=== PATIENT | female | born 1935 | race Caucasian/White ===

== ENCOUNTER 2020-05-14 06:41 | Outpatient (REF) | payer MEDICARE, SELFPAY ==
[2020-05-14 11:30] LABS: MANUAL DIFF FLAG NO
[2020-05-14 11:39] LABS: Basophils Percent Auto 0.2 % (0-2); Eosinophils Absolute Auto 0.1 X10*3/uL (0.0-0.4); Eosinophils Percent Auto 1.4 % (0-4); Hematocrit 43.9 % (37-47); Imm Gran Abs Auto 0.01 X10*3/uL (0.00-0.03); Imm Gran Pct Auto 0.2 % (0.0-0.4); Lymphocytes Absolute Auto 1.6 X10*3/uL (1.2-4.9); Lymphocytes Percent Auto 25.9 % (20-40); Mean Corpuscular HGB Conc 31.9 g/dl (31.0-35.0); Mean Corpuscular Hemoglobin 29.1 pg (27.0-33.0); Mean Corpuscular Volume 91.3 fL (80-98); Mean Platelet Volume 11.3 fL (9.4-12.3); Monocytes Absolute Auto 0.5 X10*3/uL (0.1-1.2); Monocytes Percent Auto 7.7 % (2-11); Neutrophils Absolute Auto 4.1 X10*3/uL (2.0-8.3); Neutrophils Percent Auto 64.6 % (45-73); Platelet Count 225 X10*3/uL (160-400); Red Blood Count 4.81 X10*6/uL (4.20-5.50); Red Cell Distribution Width 13.8 % (11.0-16.0); White Blood Count 6.3 X10*3/uL (4.8-10.8)
[2020-05-14 11:55] LABS: Alanine Aminotransferase 15 U/L (0-31); Albumin Level 4.3 g/dL (3.5-5.0); Alkaline Phosphatase 66 U/L (39-117); Anion Gap 14 (12-20); Aspartate Amino Transferase 20 U/L (5-31); Bilirubin Total 0.7 mg/dL (0.0-1.0); Blood Urea Nitrogen 14 mg/dL (9-16); Calcium 8.9 mg/dL (8.4-10.2); Carbon Dioxide 27 mmol/L (22-29); Chloride 103 mmol/L (96-108); Cholesterol 166 mg/dL; Estimated Glomerular Filt Rate > 60; Glucose Fasting 109 mg/dL (60-99); HDL Cholesterol 36 mg/dL; LDL Cholesterol Calculated 110 mg/dl; Potassium 4.2 mmol/l (3.3-5.1); Sodium 140 mmol/L (135-145); Total Protein 6.6 g/dL (6.5-8.0); Triglycerides 102 mg/dL
== END 2020-05-14 06:42 | disposition home or self-care (01) ==
LOC: HO.HMGCLDS 06:41
PROVIDERS: PCP Internal Medicine; Visit Provider Internal Medicine
DX: R53.83 Other fatigue (principal); E78.5 Hyperlipidemia, unspecified
CPT/HCPCS: 36415; 80053; 80061; 85025

== ENCOUNTER → 2021-04-04 14:13 | Outpatient (BNVA) | payer MEDICARE, SELFPAY | PROVIDERS: PCP Internal Medicine; Visit Provider Internal Medicine Cardiovascular Disease | DX: I48.0 Paroxysmal 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 (principal); Z87.891 Personal history of nicotine dependence; Z88.6 Allergy status to analgesic agent; Z79.899 Other long term (current) drug therapy | CPT/HCPCS: Q3014 ==

== ENCOUNTER 2021-04-28 11:53 | Outpatient (REF) | payer MEDICARE, SELFPAY ==
--- NOTE | ~2021-04-28 | MM_ITS ---
EXAMINATION: MM SCREENING DIGITAL BREAST TOMOSYNTHESIS, BILATERAL CLINICAL INFORMATION: Screening. Asymptomatic. Left lumpectomy for DCIS, 2005. Age 85. Due for yearly. COMPARISON: Mammography: 12/25/2018, 11/22/2017, 12/21/2014 TECHNIQUE: Digital breast tomosynthesis is performed in both the craniocaudal and mediolateral oblique views along with computer-aided detection (CAD). Synthesized 2D images are generated from the tomosynthesis. Additional exaggerated left CC and right MLO views are provided. FINDINGS: There are scattered areas of fibroglandular density (ACR BI-RADS breast composition Category b). Parenchymal pattern is similar to prior studies. Scattered bilateral inhomogeneous fibroglandular densities are stable. There is old scarring with reduced breast size on left consistent with post therapy changes. Circumscribed nodularity central right breast mid depth on MLO view is stable. There is no significant mass or architectural abnormality. Scattered bilateral benign round and coarse and vascular calcifications are again seen. There is a dermal lesion again noted right breast posterior lower inner quadrant. MM/MM tomosynthesis screening BI IMPRESSION: No significant changes from prior studies. ASSESSMENT: BI-RADS 2: Benign RECOMMENDATION: Routine annual mammography screening. This patient's information was entered into a reminder system with a target due date for their next mammogram.
== END 2021-04-28 11:54 | disposition home or self-care (01) ==
LOC: HO.MAMMO 11:53
PROVIDERS: Visit Provider Internal Medicine
DX: Z12.31 Encounter for screening mammogram for malignant neoplasm of breast (principal)
CPT/HCPCS: 77063; 77067

== ENCOUNTER 2021-05-13 07:06 | Outpatient (REF) | payer MEDICARE, SELFPAY ==
[2021-05-13 11:29] LABS: MANUAL DIFF FLAG NO
[2021-05-13 11:37] LABS: Basophils Percent Auto 0.4 % (0-2); Eosinophils Absolute Auto 0.1 X10*3/uL (0.0-0.4); Eosinophils Percent Auto 0.7 % (0-4); Hematocrit 44.5 % (37-47); Hemoglobin 14.5 g/dl (12.0-16.0); Imm Gran Abs Auto 0.02 X10*3/uL (0.00-0.03); Imm Gran Pct Auto 0.2 % (0.0-0.4); Lymphocytes Percent Auto 24.3 % (20-40); Mean Corpuscular HGB Conc 32.6 g/dl (31.0-35.0); Mean Corpuscular Hemoglobin 29.3 pg (27.0-33.0); Mean Corpuscular Volume 89.9 fL (80-98); Mean Platelet Volume 11.3 fL (9.4-12.3); Monocytes Absolute Auto 0.5 X10*3/uL (0.1-1.2); Monocytes Percent Auto 6.4 % (2-11); Neutrophils Absolute Auto 5.6 X10*3/uL (2.0-8.3); Platelet Count 250 X10*3/uL (160-400); Red Blood Count 4.95 X10*6/uL (4.20-5.50); Red Cell Distribution Width 13.4 % (11.0-16.0); White Blood Count 8.2 X10*3/uL (4.8-10.8)
[2021-05-13 12:04] LABS: Alanine Aminotransferase 18 U/L (0-31); Albumin Level 4.5 g/dL (3.5-5.0); Alkaline Phosphatase 72 U/L (39-117); Anion Gap 13 (12-20); Aspartate Amino Transferase 23 U/L (5-31); Bilirubin Total 0.8 mg/dL (0.0-1.0); Blood Urea Nitrogen 13 mg/dL (9-16); Calcium 9.7 mg/dL (8.4-10.2); Carbon Dioxide 27 mmol/L (22-29); Chloride 105 mmol/L (96-108); Cholesterol 161 mg/dL; Estimated Glomerular Filt Rate > 60; Glucose Fasting 114 mg/dL (60-99); HDL Cholesterol 32 mg/dL; LDL Cholesterol Calculated 109 mg/dl; Potassium 4.1 mmol/L (3.3-5.1); Sodium 141 mmol/L (135-145); Total Protein 6.9 g/dL (6.5-8.0); Triglycerides 102 mg/dL
== END 2021-05-13 07:07 | disposition home or self-care (01) ==
LOC: HO.HMGCLDS 07:06
PROVIDERS: PCP Internal Medicine; Visit Provider Internal Medicine
DX: R53.83 Other fatigue (principal); E78.00 Pure hypercholesterolemia, unspecified
CPT/HCPCS: 36415; 80053; 80061; 85025

== ENCOUNTER → 2022-04-12 10:54 | Outpatient (BNVA) | payer MEDICARE, SELFPAY | PROVIDERS: PCP Internal Medicine; Referring Provider Internal Medicine; Visit Provider Internal Medicine Cardiovascular Disease | DX: I48.0 Paroxysmal 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 (principal) | CPT/HCPCS: 93005; 99212 ==

== ENCOUNTER 2022-05-10 09:42 | Outpatient (REF) | payer MEDICARE, SELFPAY ==
--- NOTE | ~2022-05-10 | MM_ITS ---
EXAMINATION: MM SCREENING DIGITAL BREAST TOMOSYNTHESIS, BILATERAL CLINICAL INFORMATION: Screening. Asymptomatic. Previous left breast lumpectomy. COMPARISON: Mammography: 04/28/2021 and studies dating back to 11/29/2009. TECHNIQUE: Digital breast tomosynthesis is performed in both the craniocaudal and mediolateral oblique views along with computer-aided detection (CAD). Synthesized 2-D images are generated from the tomosynthesis. FINDINGS: There are scattered areas of fibroglandular density (ACR BI-RADS breast composition Category b). There is a stable region of architectural distortion with partially circumscribed density seen within the superior aspect of the right breast. Postsurgical scarring is seen within the left breast. No new abnormal dominant mass or suspicious grouping of microcalcifications identified. MM/MM tomosynthesis screening BI IMPRESSION: No significant change. ASSESSMENT: BI-RADS 2: Benign. RECOMMENDATION: Routine annual mammography screening. This patient's information was entered into a reminder system with a target due date for their next mammogram.
== END 2022-05-10 09:43 | disposition home or self-care (01) ==
LOC: HO.MAMMO 09:42
PROVIDERS: PCP Internal Medicine; Visit Provider Internal Medicine
DX: Z12.31 Encounter for screening mammogram for malignant neoplasm of breast (principal)
CPT/HCPCS: 77063; 77067

== ENCOUNTER 2022-05-20 06:58 | Outpatient (REF) | payer MEDICARE, SELFPAY ==
[2022-05-20 11:40] LABS: MANUAL DIFF FLAG NO
[2022-05-20 11:51] LABS: Basophils Percent Auto 0.5 % (0-2); Eosinophils Absolute Auto 0.1 X10*3/uL (0.0-0.4); Eosinophils Percent Auto 0.8 % (0-4); Hematocrit 47.8 % (37.0-47.0); Hemoglobin 15.2 g/dl (12.0-16.0); Imm Gran Abs Auto 0.02 X10*3/uL (0.00-0.03); Imm Gran Pct Auto 0.2 % (0.0-0.4); Lymphocytes Absolute Auto 1.9 X10*3/uL (1.2-4.9); Lymphocytes Percent Auto 23.1 % (20-40); Mean Corpuscular HGB Conc 31.8 g/dl (31.0-35.0); Mean Corpuscular Hemoglobin 28.8 pg (27.0-33.0); Mean Corpuscular Volume 90.5 fL (80.0-98.0); Mean Platelet Volume 11.9 fL (9.4-12.3); Monocytes Absolute Auto 0.6 X10*3/uL (0.1-1.2); Monocytes Percent Auto 7.1 % (2-11); Neutrophils Absolute Auto 5.7 x10*3/uL (2.0-8.3); Neutrophils Percent Auto 68.3 % (45-73); Platelet Count 236 X10*3/uL (160-400); Red Blood Count 5.28 X10*6/uL (4.20-5.50); White Blood Count 8.3 X10*3/uL (4.8-10.8)
[2022-05-20 12:10] LABS: Alanine Aminotransferase 15 U/L (0-31); Albumin Level 4.6 g/dL (3.5-5.0); Alkaline Phosphatase 65 U/L (39-117); Anion Gap 18 (12-20); Aspartate Amino Transferase 24 U/L (5-31); Bilirubin Total 0.9 mg/dL (0.0-1.0); Blood Urea Nitrogen 14 mg/dL (9-16); Calcium 9.6 mg/dL (8.4-10.2); Carbon Dioxide 25 mmol/L (22-29); Chloride 104 mmol/L (96-108); Cholesterol 162 mg/dL; Estimated Glomerular Filt Rate > 60; Glucose Fasting 125 mg/dL (60-99); HDL Cholesterol 32 mg/dL; LDL Cholesterol Calculated 109 mg/dl; Potassium 4.5 mmol/L (3.3-5.1); Sodium 142 mmol/L (135-145); Total Protein 7.3 g/dL (6.5-8.0); Triglycerides 107 mg/dL
== END 2022-05-20 06:59 | disposition home or self-care (01) ==
LOC: HO.HMGCLDS 06:58
PROVIDERS: PCP Internal Medicine; Visit Provider Internal Medicine
DX: E78.5 Hyperlipidemia, unspecified (principal); R53.83 Other fatigue
CPT/HCPCS: 36415; 80053; 80061; 85025

== ENCOUNTER 2022-09-17 12:01 | Inpatient (IN) | payer MEDICARE, SELFPAY ==
[2022-09-17] VITALS (16 sets, daily range): BP systolic 73–156; BP diastolic 43–99; PULSE 84–150; RESP 15–22; TEMP 36.2–37.7; O2SAT 90–96
--- NOTE | ~2022-09-17 | XR_ITS ---
EXAMINATION: XR LUMBAR SPINE XR LEFT HIP CLINICAL INFORMATION: Syncope, pain. COMPARISON: Pelvis radiograph from 10/08/2017 TECHNIQUE: Lumbar spine, 3 views Left hip, 2 views FINDINGS: Lumbar spine: The technologist was unable to position this 87-year-old patient in an optimal lateral projection. L1 vertebral body compression fracture with approximately 35% anterior height loss is of uncertain chronicity. There are no comparison exams of the lumbar spine. Multilevel osteophyte formation of the degenerated lumbar spine. There appears to be moderate disc degenerative change of L3-L4, L4-L5 and L5-S1. 11 degrees of dextroscoliosis is measured from the superior plate of T12 to the inferior plate of L4. There is mild grade 1 anterolisthesis at L4-L5. There is dense atherosclerotic calcification of the abdominal aorta without radiographic evidence of aneurysm. Left hip: At the left hip, the femoral head is well-positioned within the intact acetabulum. There is mild narrowing of superomedial joint space. This suggests likely chronic mild articular cartilage degeneration. Otherwise, there are no findings of any significant degenerative or inflammatory arthropathy at the hip. The iliac and femoral arteries are calcified. The visualized components of the right total hip arthroplasty are intact. 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 * L1 vertebral body compression fracture is of uncertain chronicity. * No acute fracture or malalignment at the left hip.
--- NOTE | ~2022-09-17 | XR_ITS ---
EXAMINATION: XR LUMBAR SPINE XR LEFT HIP CLINICAL INFORMATION: Syncope, pain. COMPARISON: Pelvis radiograph from 10/08/2017 TECHNIQUE: Lumbar spine, 3 views Left hip, 2 views FINDINGS: Lumbar spine: The technologist was unable to position this 87-year-old patient in an optimal lateral projection. L1 vertebral body compression fracture with approximately 35% anterior height loss is of uncertain chronicity. There are no comparison exams of the lumbar spine. Multilevel osteophyte formation of the degenerated lumbar spine. There appears to be moderate disc degenerative change of L3-L4, L4-L5 and L5-S1. 11 degrees of dextroscoliosis is measured from the superior plate of T12 to the inferior plate of L4. There is mild grade 1 anterolisthesis at L4-L5. There is dense atherosclerotic calcification of the abdominal aorta without radiographic evidence of aneurysm. Left hip: At the left hip, the femoral head is well-positioned within the intact acetabulum. There is mild narrowing of superomedial joint space. This suggests likely chronic mild articular cartilage degeneration. Otherwise, there are no findings of any significant degenerative or inflammatory arthropathy at the hip. The iliac and femoral arteries are calcified. The visualized components of the right total hip arthroplasty are intact. 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 * L1 vertebral body compression fracture is of uncertain chronicity. * No acute fracture or malalignment at the left hip.
--- NOTE | ~2022-09-17 | XR_ITS ---
EXAMINATION: XR CHEST CLINICAL INFORMATION: Fall, elevated BNP. Rule out edema. COMPARISON: None TECHNIQUE: Frontal view of the chest was obtained. FINDINGS: No airspace consolidation or definite pleural effusions. No pneumothorax. Normal heart size. Mildly tortuous descending thoracic aorta with calcifications aortic knob. Mildly increased pulmonary vascular markings suggesting mild vascular congestion/early interstitial edema. No acute osseous injury identified. XR/XR chest 1V IMPRESSION: 1. Mild pulmonary vascular congestion/early interstitial edema. 2. No airspace consolidation or definite pleural effusions.
--- NOTE | 2022-09-17 12:06 | ED_ITS ---
HPI - Syncope General Chief Complaint: Fall Stated Complaint: fall,+loc, on floor since 3am per ems Time Seen by Provider: 09/17/22 12:05 Source: patient and EMS Mode of arrival: EMS Limitations: no limitations History of Present Illness HPI narrative: syncope at 3am, EMS had rates of 140-190, she has known afib. Her son told her to call. 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 MD complaint: loss of consciousness Onset (ago): hour(s) Prodromal symptoms: lightheaded Witnessed: No Related Data Home Medications Medication Instructions Recorded Confirmed amlodipine 5 mg tablet (Norvasc) 5 mg PO DAILY 04/04/21 09/17/22 apixaban 2.5 mg tablet (Eliquis) 2.5 mg PO BID 04/04/21 09/17/22 losartan 100 mg tablet 100 mg PO DAILY 04/04/21 09/17/22 metoprolol tartrate 100 mg tablet 100 mg PO BID 04/04/21 09/17/22 simvastatin 10 mg tablet (Zocor) 10 mg PO BEDTIME 04/04/21 09/17/22 alendronate 70 mg tablet 70 mg PO ESCOBAR@0900 04/12/22 09/17/22 multivitamin 1 tab PO DAILY 09/17/22 09/17/22 Allergies Allergy/AdvReac Type Severity Reaction Status Date / Time morphine [MORPHINE] Allergy Severe VOMITING Verified 09/17/22 12:14 Review of Systems Musculoskeletal: Comments: left hip and lumbar back pain Neurologic: Denies Sensory deficit (Neuro) [facility] Past Medical History Medical History Endometrial cyst of ovary PAF (paroxysmal 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) Surgical History H/O dilation and curettage History of total right hip arthroplasty S/P right oophorectomy Family History Family History Father Rectal cancer Stroke Mother CVD (cardiovascular disease) Heart failure Social History Social History Unable to assess alcohol history related to: Unknown Alcohol intake: never Patient Tobacco Use Status: Former Tobacco user Smoked in Last 30 Days: No Use of substances other than those prescribed or required for medical reasons: No Advance Directives: No Advance Directives Information Provided: Yes Physical Exam Vital Signs: Vital Signs: Last Vital Signs Temp 98.8 F 09/17/22 12:15 Pulse 126 H 09/17/22 15:58 Resp 18 09/17/22 15:58 BP 118/99 H 09/17/22 15:58 Pulse Ox 90 L 09/17/22 15:58 O2 Del Method 09/17/22 15:58 O2 Flow Rate 2 09/17/22 15:58 BMI result Body Mass Index 30.0 Const: Other: elderly General: healthy appearing Nutritional Appearance: average body habitus Orientation/consciousness: oriented to person and patient oriented x3 Limitations: no limitations HEENT: Head: Yes normal to inspection Ears: external ears normal General nose exam: Normal external nose present Mouth: Normal oral and palatal mucosa present and oropharynx normal Throat: Yes posterior oropharynx normal Eyes: General: appearance normal, both eyes and all related structures Neck: Other: supple Neck: Yes normal visual inspection Chest: Chest palpation & inspection: normal inspection of the chest Resp: Auscultation: clear to auscultation bilaterally Cardio: Other: tachycardia, irregular rate and rhythm GI: Inspection: Yes normal to inspection Palpation (GI): Soft to palpation, nontender and No hepatosplenomegaly present Auscultation: normal bowel sounds : General: Yes no CVA tenderness Back/Spine/Pelvis: Back: no CVA tenderness Skin: General skin exam: no rashes or lesions noted Neuro: General: oriented to person and patient oriented x3 Cranial nerves: Yes CN's II-XII intact bilaterally Motor exam (neuro): 5/5 motor strength p resent throughout Sensory Exam: No Sensory deficit (Neuro) Extrem: Other: mild hp pain on range of motion Psych: Appearance: grossly normal Course Reevaluation(s) Reevaluation #1: patient with PAF and aterior septal st depressions requiring cardizem, after syncope. Will admit Time: 14:27 Reevaluation #2: I spent 40 minutes of critical care, with interventions, assessments, speaking to patient, consultants, and family. Time: 14:27 Medications Administered Generic Name Dose Route Start Last Admin Trade Name Freq PRN Reason Stop Dose Admin Diltiazem HCl 125 mg/ Sodium 125 mls @ 0 mls/hr 09/17/22 12:30 09/17/22 14:13 Chloride IVCONT 15 mg/hr .Q0M PHILLIP 15 mls/hr Titration Protocol Per Protocol Sodium Chloride 1,000 mls @ 100 mls/hr 09/17/22 13:00 09/17/22 13:13 Ns IVCONT 100 mls/hr .Q10H PHILLIP Administration Sodium Chloride 3 ml 09/17/22 16:00 09/17/22 15:58 0.9 % Sodium Chloride Flush 3 Ml Syringe IVFLUSH 3 ml QSHIFT PHILLIP Administration Discontinued Medications Generic Name Dose Route Start Last Admin Trade Name Vickie PRN Reason Stop Dose Admin Acetaminophen/Codeine Phosphate 1 tab 09/17/22 14:30 09/17/22 15:23 Acetaminophen With Codeine # 3 Tablet PO 09/17/22 14:31 1 tab ONCE ONE Administration Diltiazem HCl 10 mg 09/17/22 12:17 09/17/22 12:33 Diltiazem Hcl 50 Mg/10 Ml Vial IVPUSH 09/17/22 12:18 10 mg STAT STA Administration Diltiazem HCl 5 mg 09/17/22 14:17 09/17/22 14:21 Diltiazem Hcl 50 Mg/10 Ml Vial IVPUSH 09/17/22 14:18 5 mg STAT STA Administration Magnesium Sulfate 2 gm in 50 mls @ 25 mls/hr 09/17/22 14:52 09/17/22 15:57 Magnesium Sulfate/H2o IV 09/17/22 16:51 25 mls/hr ONCE ONE Administration Medical Decision Making Differential Diagnosis Differential Diagnoses: The differential diagnosis associated with the presentation includes (rapid 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, atrial flutter, Syncope, acute coronary syndrome) Admission/Observation Consideration of admission/observation: Escalation of care including admission/observation considered (upon arrival this 87 yo female with rapid 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 and syncope was considered for admission) Consult Healthcare Provider Management of the patient was discussed with: Hospitalist Lab Data MDM Lab Attestation statement: I reviewed the patient's lab results. 09/17/22 12:30 09/17/22 12:30 Labs: Lab Results 09/17/22 09/17/22 09/17/22 Range/Units 12:10 12:30 12:30 WBC 13.8 H (4.8-10.8) X10*3/uL RBC 5.20 (4.20-5.50) X10*6/uL Hgb 15.1 (12.0-16.0) g/dl Hct 44.3 (37.0-47.0) % MCV 85.2 (80.0-98.0) fL MCH 29.0 (27.0-33.0) pg MCHC 34.1 (31.0-35.0) g/dl RDW 13.7 (11.0-16.0) % Plt Count 185 (160-400) X10*3/uL MPV 10.6 (9.4-12.3) fL Immature Gran % (Auto) 0.5 H (0.0-0.4) % Neut % (Auto) 87.0 H (45-73) % Lymph % (Auto) 6.5 L (20-40) % [place] % (Auto) 5.9 (2-11) % Eos % (Auto) 0.0 (0-4) % Baso % (Auto) 0.1 (0-2) % Lymph # (Auto) 0.9 L (1.2-4.9) X10*3/uL [place] # (Auto) 0.8 (0.1-1.2) X10*3/uL Eos # (Auto) 0.0 (0.0-0.4) X10*3/uL Baso # (Auto) 0.0 (0.0-0.2) X10*3/uL Abs Immat Gran (auto) 0.07 H (0.00-0.03) X10*3/uL Absolute Neuts (auto) 12.0 H (2.0-8.3) x10*3/uL Absolute Nucleated RBC 0.000 (0.0-0.012) X10*3/uL Nucleated RBC % (auto) 0.0 (0.0-0.2) /100WBC Sodium 138 (135-145) mmol/L Potassium 4.2 (3.3-5.1) mmol/L Chloride 103 (96-108) mmol/L Carbon Dioxide 22 (22-29) mmol/L Anion Gap 17 (12-20) BUN 15 (9-16) mg/dL Creatinine 0.78 (0.5-1.4) mg/dL Estim Creat Clear Calc 51.8 Estimated GFR > 60 POC Glucose 148 H (60-115) mg/dL Random Glucose 162 H (60-115) mg/dL Calcium 9.3 (8.4-10.2) mg/dL Magnesium 2.1 (1.6-2.6) mg/dL Troponin I High Sens (<3.5-17.0) ng/L B-Natriuretic Peptide (<100) pg/mL TSH 0.94 (0.32-4.0) uIU/mL Urine Color Urine Appearance Urine pH (5.0-9.0) Ur Specific [place] (1.005-1.025) Urine Protein (Neg-Trace) mg/dL Urine Glucose (UA) (Negative) mg/dL Urine Ketones (Negative) mg/dL Urine Blood (Negative) Urine Nitrite (Negative) Ur Leukocyte Esterase (Negative) Urine RBC (0-2) /HPF Urine WBC (0-5) /HPF Ur Squamous Epith Cells (0-2) /HPF Urine Bacteria (None Seen) Hyaline Casts (0-2) /LPF COVID-19 (SUNDAY) (Negative) COVID-19 Clin Com 09/17/22 09/17/22 09/17/22 Range/Units 12:30 12:30 14:41 WBC (4.8-10.8) X10*3/uL RBC (4.20-5.50) X10*6/uL Hgb (12.0-16.0) g/dl Hct (37.0-47.0) % MCV (80.0-98.0) fL MCH (27.0-33.0) pg MCHC (31.0-35.0) g/dl RDW (11.0-16.0) % Plt Count (160-400) X10*3/uL MPV (9.4-12.3) fL Immature Gran % (Auto) (0.0-0.4) % Neut % (Auto) (45-73) % Lymph % (Auto) (20-40) % [place] % (Auto) (2-11) % Eos % (Auto) (0-4) % Baso % (Auto) (0-2) % Lymph # (Auto) (1.2-4.9) X10*3/uL [place] # (Auto) (0.1-1.2) X10*3/uL Eos # (Auto) (0.0-0.4) X10*3/uL Baso # (Auto) (0.0-0.2) X10*3/uL Abs Immat Gran (auto) (0.00-0.03) X10*3/uL Absolute Neuts (auto) (2.0-8.3) x10*3/uL Absolute Nucleated RBC (0.0-0.012) X10*3/uL Nucleated RBC % (auto) (0.0-0.2) /100WBC Sodium (135-145) mmol/L Potassium (3.3-5.1) mmol/L Chloride (96-108) mmol/L Carbon Dioxide (22-29) mmol/L Anion Gap (12-20) BUN (9-16) mg/dL Creatinine (0.5-1.4) mg/dL Estim Creat Clear Calc Estimated GFR POC Glucose (60-115) mg/dL Random Glucose (60-115) mg/dL Calcium (8.4-10.2) mg/dL Magnesium (1.6-2.6) mg/dL Troponin I High Sens 26.3 H (<3.5-17.0) ng/L B-Natriuretic Peptide 512 H (<100) pg/mL TSH (0.32-4.0) uIU/mL Urine Color Urine Appearance Urine pH (5.0-9.0) Ur Specific [place] (1.005-1.025) Urine Protein (Neg-Trace) mg/dL Urine Glucose (UA) (Negative) mg/dL Urine Ketones (Negative) mg/dL Urine Blood (Negative) Urine Nitrite (Negative) Ur Leukocyte Esterase (Negative) Urine RBC (0-2) /HPF Urine WBC (0-5) /HPF Ur Squamous Epith Cells (0-2) /HPF Urine Bacteria (None Seen) Hyaline Casts (0-2) /LPF COVID-19 (SUNDAY) Negative (Negative) COVID-19 Clin Com See Note 09/17/22 Range/Units 14:41 WBC (4.8-10.8) X10*3/uL RBC (4.20-5.50) X10*6/uL Hgb (12.0-16.0) g/dl Hct (37.0-47.0) % MCV (80.0-98.0) fL MCH (27.0-33.0) pg MCHC (31.0-35.0) g/dl RDW (11.0-16.0) % Plt Count (160-400) X10*3/uL MPV (9.4-12.3) fL Immature Gran % (Auto) (0.0-0.4) % Neut % (Auto) (45-73) % Lymph % (Auto) (20-40) % [place] % (Auto) (2-11) % Eos % (Auto) (0-4) % Baso % (Auto) (0-2) % Lymph # (Auto) (1.2-4.9) X10*3/uL [place] # (Auto) (0.1-1.2) X10*3/uL Eos # (Auto) (0.0-0.4) X10*3/uL Baso # (Auto) (0.0-0.2) X10*3/uL Abs Immat Gran (auto) (0.00-0.03) X10*3/uL Absolute Neuts (auto) (2.0-8.3) x10*3/uL Absolute Nucleated RBC (0.0-0.012) X10*3/uL Nucleated RBC % (auto) (0.0-0.2) /100WBC Sodium (135-145) mmol/L Potassium (3.3-5.1) mmol/L Chloride (96-108) mmol/L Carbon Dioxide (22-29) mmol/L Anion Gap (12-20) BUN (9-16) mg/dL Creatinine (0.5-1.4) mg/dL Estim Creat Clear Calc Estimated GFR POC Glucose (60-115) mg/dL Random Glucose (60-115) mg/dL Calcium (8.4-10.2) mg/dL Magnesium (1.6-2.6) mg/dL Troponin I High Sens (<3.5-17.0) ng/L B-Natriuretic Peptide (<100) pg/mL TSH (0.32-4.0) uIU/mL Urine Color Yellow Urine Appearance Clear Urine pH 6.5 (5.0-9.0) Ur Specific [place] 1.015 (1.005-1.025) Urine Protein 30 (1+) H (Neg-Trace) mg/dL Urine Glucose (UA) Negative (Negative) mg/dL Urine Ketones Trace (Negative) mg/dL Urine Blood Negative (Negative) Urine Nitrite Negative (Negative) Ur Leukocyte Esterase Trace H (Negative) Urine RBC 0-2 (0-2) /HPF Urine WBC 0-5 (0-5) /HPF Ur Squamous Epith Cells 0-2 (0-2) /HPF Urine Bacteria None Seen (None Seen) Hyaline Casts 0-2 (0-2) /LPF COVID-19 (SUNDAY) (Negative) COVID-19 Clin Com Independent Interpretation I performed an independent interpretation of an: EKG (rapid 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, rate 160, anterior lateral st depression V3-V6) and Plain X-Ray (Hip: DJD no fracture no pelvic fracture Lumbar: djd, no fracture) Independent Historian Clinical information obtained from an independent historian. History obtained from or confirmed by: EMS and Other (son) External Record Review External record reviewed: Outpatient record (EKG in normal sinus normally) Discharge Plan Discharge Clinical Impression: PAF (paroxysmal 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), Syncope, Acute ischemic heart disease Patient Disposition: Admitted As Inpatient
--- NOTE | 2022-09-17 12:16 | ECG_ITS ---
Test Reason : AFIB Blood Pressure : / mmHG Vent. Rate : 129 BPM Atrial Rate : 357 BPM P-R Int : 000 ms QRS Dur : 078 ms QT Int : 322 ms P-R-T Axes : 000 064 -49 degrees QTc Int : 471 ms Atrial fibrillation with rapid ventricular response Cannot rule out Inferior infarct (cited on or before 17-SEP-2022) Abnormal ECG When compared with ECG of 17-SEP-2022 12:16, Vent. rate has decreased Referred By: Chele Dukes Electronically Signed By:YARED MONTERROSO MD
[2022-09-17] MEDS: dilTIAZem HCL 50 MG/10 ML VIAL 10 MG IVPUSH (12:33)
[2022-09-17 12:37] LABS: MANUAL DIFF FLAG NO
[2022-09-17 12:39] LABS: Basophils Percent Auto 0.1 % (0-2); Hematocrit 44.3 % (37.0-47.0); Hemoglobin 15.1 g/dl (12.0-16.0); Imm Gran Abs Auto 0.07 X10*3/uL (0.00-0.03); Imm Gran Pct Auto 0.5 % (0.0-0.4); Lymphocytes Absolute Auto 0.9 X10*3/uL (1.2-4.9); Lymphocytes Percent Auto 6.5 % (20-40); Mean Corpuscular HGB Conc 34.1 g/dl (31.0-35.0); Mean Corpuscular Volume 85.2 fL (80.0-98.0); Mean Platelet Volume 10.6 fL (9.4-12.3); Monocytes Absolute Auto 0.8 X10*3/uL (0.1-1.2); Monocytes Percent Auto 5.9 % (2-11); Platelet Count 185 X10*3/uL (160-400); Red Cell Distribution Width 13.7 % (11.0-16.0); White Blood Count 13.8 X10*3/uL (4.8-10.8)
--- NOTE | 2022-09-17 12:45 | PC.NURSE ---
denies left hip pain while seated. painful ROM in bed. skin integrity is good throuhgout body. able to follow commands. no unilat deficits. son at bedside. awaits imaging.
[2022-09-17 12:54] LABS: Anion Gap 17 (12-20); Blood Urea Nitrogen 15 mg/dL (9-16); Calcium 9.3 mg/dL (8.4-10.2); Carbon Dioxide 22 mmol/L (22-29); Chloride 103 mmol/L (96-108); Creatinine Clr Calc Pharmacy 51.8; Estimated Glomerular Filt Rate > 60; Glucose Random 162 mg/dL (60-115); Potassium 4.2 mmol/L (3.3-5.1); Sodium 138 mmol/L (135-145)
[2022-09-17 12:59] LABS: Troponin-I High Sensitivity 26.3 ng/L (<3.5-17.0)
[2022-09-17 13:01] LABS: Glucose, Whole Blood 148 mg/dL (60-115)
[2022-09-17] MEDS: dilTIAZem HCL 125 MG in 0.9 % Sodium Chloride 100 ML IVCONT (13:05)
[2022-09-17] MEDS: 0.9 % Sodium Chloride 1,000 ML 100 ML IVCONT (13:13)
[2022-09-17 13:49] LABS: B Type Natriuretic Peptide 512 pg/mL (<100)
--- NOTE | 2022-09-17 14:14 | ECG_ITS ---
Test Reason : AFIB Blood Pressure : / mmHG Vent. Rate : 161 BPM Atrial Rate : 366 BPM P-R Int : 000 ms QRS Dur : 078 ms QT Int : 244 ms P-R-T Axes : 000 061 246 degrees QTc Int : 399 ms Atrial flutter Cannot rule out Inferior infarct , age undetermined Marked ST abnormality, possible lateral subendocardial injury Abnormal ECG No previous ECGs available Referred By: Chele Dukes Electronically Signed By:YARED MONTERROSO MD
[2022-09-17] MEDS: dilTIAZem HCL 50 MG/10 ML VIAL IVPUSH (14:21)
[2022-09-17 14:54] LABS: Appearance Urine Clear; Color Urine Yellow; Glucose Urine UA Negative (Negative); Leukocyte Esterase Urine Trace (Negative); Nitrite Urine Negative (Negative); PH 6.5 (5.0-9.0); Specific Gravity - Urine 1.015 (1.005-1.025); UMIC TRIGGER UACC YES; Urine Blood Negative (Negative); Urine Ketones Trace mg/dL (Negative); Urine Protein 30 (1+) mg/dL (Neg-Trace)
--- NOTE | 2022-09-17 14:56 | PM.IMHP ---
History of Present Illness Date of Service: 09/17/22 Chief Complaint: Syncope An 87 years old lady with PMH of AFib, HTN, HLD who presents to the hospital after having syncope and fall at home. The patient reported that she went from her room to the next room using the walker that she left at the door and was standing leaning to the chair when she suddenly found herself on the floor as she described it as plaque out. She thing that lasted only for seconds before she came here consciousness and was totally aware and able to crawl back to her room to get in contact with her son to bring her to the hospital. She reports that she is having pain in her hip area but she was able to stand and move her leg. In the emergency she was noted to have 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 with RVR with heart rate between 140-190. Denies any fever, chills, chest pain, palpitation, shortness of breath, nausea, vomiting, change in bowel habit or urinary symptoms. X-rays of hip were negative for any acute finding. Blood work showed mildly elevated troponin and BNP with reported ST depressions in the EKG with no chest pain. Admitted for further evaluation and treatment. Review of Systems Review of Systems: No fever, chills or weakness No chest pain, palpitation No shortness of breath or coughing No abdominal pain, nausea or vomiting No urinary symptoms No any rash or wounds [facility] Medical History Endometrial cyst of ovary PAF (paroxysmal 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) Family History Father Rectal cancer Stroke Mother CVD (cardiovascular disease) Heart failure Surgical History H/O dilation and curettage History of total right hip arthroplasty S/P right oophorectomy Social History Unable to assess alcohol history related to: Unknown Alcohol intake: never Patient Tobacco Use Status: Former Tobacco user Smoked in Last 30 Days: No Use of substances other than those prescribed or required for medical reasons: No Advance Directives: No Advance Directives Information Provided: Yes Meds Allergies Allergy/AdvReac Type Severity Reaction Status Date / Time morphine [MORPHINE] Allergy Severe VOMITING Verified 09/17/22 12:14 Active Medications: Current Medications Diltiazem HCl 125 mg/ Sodium (Chloride) 125 mls @ 0 mls/hr IVCONT .Q0M [facility]; Protocol Last Titration: 09/17/22 14:13 Dose: 15 mg/hr, 15 mls/hr Sodium Chloride (Ns) 1,000 mls @ 100 mls/hr IVCONT .Q10H [facility] Last Admin: 09/17/22 13:13 Dose: 100 mls/hr Magnesium Sulfate (Magnesium Sulfate/H2o) 2 gm in 50 mls @ 25 mls/hr IV ONCE ONE Stop: 09/17/22 16:51 Pharmacy Consult (Consult Rx Perform Med Rec) 1 each MISCELLANE ONCE PRN PRN Reason: Consult order Home Medications Medication Instructions Recorded Confirmed Last Taken Type amlodipine 5 mg tablet (Norvasc) 5 mg PO DAILY 04/04/21 04/12/22 Unknown History apixaban 2.5 mg tablet (Eliquis) 2.5 mg PO BID 04/04/21 04/12/22 Unknown History losartan 100 mg tablet 100 mg PO DAILY 04/04/21 04/12/22 Unknown History metoprolol tartrate 100 mg tablet 100 mg PO BID 04/04/21 04/12/22 Unknown History simvastatin 10 mg tablet (Zocor) 10 mg PO DAILY 04/04/21 04/12/22 Unknown History alendronate 70 mg tablet 70 mg PO QWEEK 04/12/22 04/12/22 Unknown History Physical Exam Vital Signs and Narrative: Vital Signs: Last Vital Signs Temp 98.8 F 09/17/22 12:15 Pulse 119 H 09/17/22 14:51 Resp 19 09/17/22 14:51 BP 134/64 09/17/22 14:51 Pulse Ox 96 09/17/22 14:43 O2 Del Method 09/17/22 14:43 O2 Flow Rate 2 09/17/22 14:43 BMI result Body Mass Index 30.0 Const: Other: Constitutional : Awake, interactive, not in distress Neck : Normal inspection, Supple Cardiovascular : Irregular irregular, no JVP, no lower extremity edema, tachycardia Respiratory : good bilateral air entry, no crackles, wheezes or rhonchi Gastrointestinal: soft, lax, Normal bowel sounds, Non tender Skin : Warm, Dry Musculoskeletal: Mild local tenderness over right hip, good range of motion in the hip. Neurological : Alert & oriented x3, No focal deficit Results Labs 09/17/22 12:30 09/17/22 12:30 Labs: Laboratory Results - last 24 hr 09/17/22 09/17/22 09/17/22 12:10 12:30 12:30 MCV 85.2 MCH 29.0 MCHC 34.1 RDW 13.7 Plt Count 185 MPV 10.6 Immature Gran % (Auto) 0.5 H Neut % (Auto) 87.0 H Lymph % (Auto) 6.5 L [place] % (Auto) 5.9 Eos % (Auto) 0.0 Baso % (Auto) 0.1 Lymph # (Auto) 0.9 L [place] # (Auto) 0.8 Eos # (Auto) 0.0 Baso # (Auto) 0.0 Abs Immat Gran (auto) 0.07 H Absolute Neuts (auto) 12.0 H Absolute Nucleated RBC 0.000 Nucleated RBC % (auto) 0.0 Anion Gap 17 Estim Creat Clear Calc 51.8 Estimated GFR > 60 POC Glucose 148 H Random Glucose 162 H Calcium 9.3 Troponin I High Sens B-Natriuretic Peptide 09/17/22 09/17/22 12:30 12:30 MCV MCH MCHC RDW Plt Count MPV Immature Gran % (Auto) Neut % (Auto) Lymph % (Auto) [place] % (Auto) Eos % (Auto) Baso % (Auto) Lymph # (Auto) [place] # (Auto) Eos # (Auto) Baso # (Auto) Abs Immat Gran (auto) Absolute Neuts (auto) Absolute Nucleated RBC Nucleated RBC % (auto) Anion Gap Estim Creat Clear Calc Estimated GFR POC Glucose Random Glucose Calcium Troponin I High Sens 26.3 H B-Natriuretic Peptide 512 H Imaging Radiologist's Impressions: Impressions Hip X-Ray 09/17/22 13:33 IMPRESSION: * 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 * L1 vertebral body compression fracture is of uncertain chronicity. * No acute fracture or malalignment at the left hip. 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 * L1 vertebral body compression fracture is of uncertain chronicity. * No acute fracture or malalignment at the left hip. Assessment and Plan (1) Atrial fibrillation with rapid ventricular response: Status: Acute (2) Syncope: Status: Acute (3) ST segment depression: Status: Acute (4) Leukocytosis: Status: Acute Plan An 87 years old lady with PMH of AFib, HTN, HLD who presents to the hospital after having syncope and fall at home. Paroxysmal 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 with RVR Likely aggravated by the fall, no clear infection appreciated Check magnesium Start home metoprolol p.o. Continue Cardizem drip Keep all monitor ST depressions Noticed on EKG with AFib RVR , likely demand mediated No reported chest pain Trended troponin Cardiology to follow Syncope Orthostatic, vasovagal, less likely seizure To check orthostatic vitals once heart rate controlled To get Cardiology evaluation Keep on telemetry Leukocytosis Pending urine analysis and chest x-ray Could be secondary to the fall Hypertension Hold home medications while on Cardizem drip DVT PPX Apixaban The patient will likely need 2. Overnight hospital stay for treatment of AFib with RVR and evaluate for syncope pending Cardiology evaluation. Time Spent With Patient Time: Total time managing care of this patient today ____ minutes. Quality Stroke Does the patient have a stroke diagnosis?: No VTE Prior VTE?: No VTE Risk Level:: Medical - moderate - high VTE Device Contraindication: Treatment Not Indicated VTE Drug Contraindication: N/A - Med Ordered
[2022-09-17 14:59] LABS: Bacteria Urine None Seen (None Seen); Hyaline Casts Urine 0-2 /LPF (0-2); RBC Urine 0-2 /HPF (0-2); Squamous Epithelial Cell Urine 0-2 /HPF (0-2); WBC Urine 0-5 /HPF (0-5)
[2022-09-17 15:11] LABS: COVID-19 Test Negative (Negative); IDNOW Serial# 16C4AD1C
[2022-09-17 15:15] LABS: Thyroid Stimulating Hormone 0.94 uIU/mL (0.32-4.0)
--- NOTE | 2022-09-17 15:25 | PC.NURSE ---
Pt aware of plan for admission. medicated for left hip pain. is anxiious at times.
[2022-09-17 15:31] LABS: Magnesium 2.1 mg/dL (1.6-2.6)
[2022-09-17 15:39] LABS: Troponin-I High Sensitivity 25.2 ng/L (<3.5-17.0)
[2022-09-17] MEDS: Magnesium Sulfate/H2O 2 GM/50 ML PIGGYBACK IV (15:57)
[2022-09-17] MEDS: 0.9 % Sodium Chloride Flush 3 ML SYRINGE IVFLUSH ×2 (15:58→21:38)
--- NOTE | 2022-09-17 16:16 | PHA.MEDREC ---
Pharmacy Consult ? Medication Reconciliation Pharmacy has completed the medication reconciliation. Spoke to patient which had a med list with them.
--- NOTE | 2022-09-17 17:32 | PC.NURSE ---
Pt resting quielty. Skin pwd. awaits room on floor.
[2022-09-17] MEDS: Furosemide 20 MG TABLET PO (19:15)
--- NOTE | 2022-09-17 20:20 | PC.NURSE ---
Pt A&Ox4, reports some soreness to hip area. Pt has Cardizem drip running at 15 mg/hr to R wrist IV. HR in the 110's high 90's. Pt remains on 2L via NC sat O2 95%. RN to RN report given. Pt will be transported to room 457 by transporter, Pt aware of plan.
[2022-09-17] MEDS: Metoprolol Tartrate 100 MG TABLET PO (21:37)
[2022-09-17] MEDS: Apixaban 2.5 MG TABLET PO (21:38)
[2022-09-17] MEDS: dilTIAZem HCL 125 MG in 0.9 % Sodium Chloride 100 ML 15 MG IVCONT (22:09)
[2022-09-18] VITALS (9 sets, daily range): BP systolic 102–145; BP diastolic 55–71; PULSE 67–106; RESP 15–17; TEMP 36.8–37.6; O2SAT 90–98
[2022-09-18 06:23] LABS: Anion Gap 14 (12-20); Blood Urea Nitrogen 16 mg/dL (9-16); Calcium 8.4 mg/dL (8.4-10.2); Carbon Dioxide 24 mmol/L (22-29); Chloride 105 mmol/L (96-108); Creatinine Clr Calc Pharmacy 59.4; Estimated Glomerular Filt Rate > 60; Glucose Random 131 mg/dL (60-115); Potassium 4.1 mmol/L (3.3-5.1); Sodium 139 mmol/L (135-145)
[2022-09-18 06:37] LABS: Hemoglobin 14.1 g/dl (12.0-16.0); Mean Corpuscular HGB Conc 34.4 g/dl (31.0-35.0); Mean Corpuscular Hemoglobin 30.2 pg (27.0-33.0); Mean Corpuscular Volume 87.8 fL (80.0-98.0); Mean Platelet Volume 11.4 fL (9.4-12.3); Platelet Count 167 X10*3/uL (160-400); Red Blood Count 4.67 X10*6/uL (4.20-5.50)
[2022-09-18] MEDS: Acetaminophen 325 MG TABLET 650 MG PO (08:41)
[2022-09-18] MEDS: 0.9 % Sodium Chloride Flush 3 ML SYRINGE IVFLUSH ×2 (08:41→17:21)
[2022-09-18] MEDS: Furosemide 40 MG/4 ML VIAL IVPUSH (08:41)
[2022-09-18] MEDS: Apixaban 2.5 MG TABLET PO ×2 (08:42→20:36)
[2022-09-18] MEDS: Metoprolol Tartrate 100 MG TABLET PO ×2 (08:43→20:37)
--- NOTE | 2022-09-18 09:31 | MHC.CM.PN ---
met with pt and her pt had no previous services,she would like a vna when dcd,she is full covid vax has a ride home
--- NOTE | 2022-09-18 10:51 | P.CONCA_ITS ---
History of Present Illness History of Present Illness Date of Service: 09/18/22 Requesting physician: Justus Jimenez Consult reason: 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 and other (Syncope) Chief complaint: fall,+loc, on floor since 3am per ems Narrative: I was consulted to see Kera in cardiology consultation today because of what appears to be a syncopal episode along with 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 rapid ventricular response. She is a pleasant 87-year-old female who sees Dr. Martínez as outpatient for paroxysmal 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, last seen in March. As per his note he she had incidental detection of 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 3 years ago and had no recurrence clinically of 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. Was maintained on Eliquis and metoprolol and felt that she could be followed by primary care physician. Yesterday she was in her regular state of health and walked to her living room with help of a walker. She was then leaning over the chair trying to think what she had come to the room to do and then found herself on the floor. She seems she only passed out for few seconds but she is not sure. She had no warning symptoms. She had no chest pain, shortness of breath, lightheadedness, warm feeling, nausea. She had no rapid heart rate or palpitat ions. She then crawled herself to the bed and called her son who brought her to the emergency room. She was noted to be in rapid 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 rapid ventricular response. She was started on IV Cardizem drip and overnight the rates were well controlled but then her Cardizem drip was stopped and this morning heart rate was elevated again. She has been started back on Cardizem drip at this point time. With the 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 she denies any symptoms of palpitations or rapid heart rate. She denies any current chest pain. Cardiology consult was sought for management of her 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. She has never had syncopal episodes in the past. She has not had any significant cardiac condition such as NC or heart failure in the past. Review of Systems Constitutional: Constitutional: Reports no additional constitutional complaints ENT: Reports system reviewed and no additional complaints, except as documented Cardiovascular: Cardiovascular: Denies chest pain, Denies rapid heart rate, Denies leg edema, Denies lightheadedness, Reports Loss of Consciousness and Denies dyspnea Respiratory: Respiratory: Reports no additional respiratory complaints and Denies dyspnea Gastrointestinal: Gastrointestinal: Reports no additional gastrointestinal complaints Genitourinary: Genitourinary: Reports no additional female genitourinary c omplaints Musculoskeletal: Musculoskeletal: Reports no additional musculoskeletal complaints Neurologic: Reports system reviewed and no additional complaints, except as documented PMFSH Past Medical History Medical History Endometrial cyst of ovary PAF (paroxysmal 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) Family History Family History Father Rectal cancer Stroke Mother CVD (cardiovascular disease) Heart failure Surgical History Surgical History H/O dilation and curettage History of total right hip arthroplasty S/P right oophorectomy Social History Social History Household Members: None Do you presently have visiting nurse or other home services: No Unable to assess alcohol history related to: Unknown Alcohol intake: never Patient Tobacco Use Status: Former Tobacco user Quit Date: 1985 Smoked in Last 30 Days: No Use of substances other than those prescribed or required for medical reasons: No Currently Displaying Signs/Symptoms of Drug Intoxication Withdrawal: No Any prior treatment program specific to substance use: No Have you been hit, kicked, punched, or otherwise hurt by someone within the past year? If so, by whom?: No Do you feel safe in your current relationship?: No Current Relationship Is there a partner from a previous relationship who is making you feel unsafe now?: No Are you made to feel afraid or neglected: No Advance Directives: No Advance Directives Information Provided: Yes Do you have thoughts of harming others: None Do you have a plan to hurt others: No Plan Recently lost weight without trying: No Eating poorly because of decreased appetite: No Nutrition Risks: No Nutritional Risk Patient : No : No Poor oral hygiene: No service: No Meds Allergies Allergy/AdvReac Type Severity Reaction Status Date / Time morphine [MORPHINE] Allergy Severe VOMITING Verified 09/17/22 12:14 Active Medications: Current Medications Acetaminophen (Acetaminophen 325 Mg Tablet) 650 mg PO Q6H PRN PRN Reason: Pain, Mild (Pain Scale 1-3) Last Admin: 09/18/22 08:41 Dose: 650 mg Apixaban (Apixaban 2.5 Mg Tablet) 2.5 mg PO BID [facility] Last Admin: 09/18/22 08:42 Dose: 2.5 mg Atorvastatin Calcium (Atorvastatin Calcium 10 Mg Tablet) 10 mg PO BEDTIME [facility] Diltiazem HCl 125 mg/ Sodium (Chloride) 125 mls @ 0 mls/hr IVCONT .Q0M [facility]; Protocol Last Titration: 09/18/22 09:00 Dose: 15 mg/hr, 15 mls/hr Sodium Chloride (Ns) 1,000 mls @ 100 mls/hr IVCONT .Q10H [facility] Last Infusion: 09/17/22 22:04 Dose: Infused Metoprolol Tartrate (Metoprolol Tartrate 100 Mg Tablet) 100 mg PO BID [facility]; Protocol Last Admin: 09/18/22 08:43 Dose: 100 mg Ondansetron HCl (Ondansetron Hcl 4 Mg/2 Ml Vial) 4 mg IVPUSH Q8H PRN PRN Reason: Nausea and Vomiting Pharmacy Consult (Consult Rx Perform Med Rec) 1 each MISCELLANE ONCE PRN PRN Reason: Consult order Sodium Chloride (0.9 % Sodium Chloride Flush 3 Ml Syringe) 3 ml IVFLUSH QSHIFT [facility] Last Admin: 09/18/22 08:41 Dose: 3 ml Home Medications Medication Instructions Recorded Confirmed Last Taken Type amlodipine 5 mg tablet (Norvasc) 5 mg PO DAILY 04/04/21 09/17/22 09/15/22 History apixaban 2.5 mg tablet (Eliquis) 2.5 mg PO BID 04/04/21 09/17/22 09/15/22 History losartan 100 mg tablet 100 mg PO DAILY 04/04/21 09/17/22 09/15/22 History metoprolol tartrate 100 mg tablet 100 mg PO BID 04/04/21 09/17/22 09/15/22 History simvastatin 10 mg tablet (Zocor) 10 mg PO BEDTIME 04/04/21 09/17/22 09/15/22 History alendronate 70 mg tablet 70 mg PO ESCOBAR@0900 04/12/22 09/17/22 09/17/22 09:00 History multivitamin 1 tab PO DAILY 09/17/22 09/17/22 09/15/22 History Physical Exam Vital Signs: Vital Signs: Last Vital Signs Temp 99.6 F 09/18/22 07:55 Pulse 106 H 09/18/22 07:55 Resp 16 09/18/22 07:55 BP 145/60 H 09/18/22 07:55 Pulse Ox 91 L 09/18/22 07:55 O2 Del Method 09/18/22 07:55 O2 Flow Rate 2 09/18/22 03:15 BMI result Body Mass Index 30.0 Const: General: cooperative, comfortable, no acute distress and alert Nutritional Appearance: overweight Orientation/consciousness: patient oriented x3 HEENT: Head: Yes normocephalic and Yes atraumatic Neck: Neck: Yes trachea midline, Yes supple and Yes no JVD Resp: Effort & Inspection: normal respiratory effort Auscultation: clear to auscultation bilaterally Cardio: Jugular venous distension: no JVD Rate: tachycardic Rhythm: abnormal rhythm irregularly irregular Heart sounds: S1 normal heart sound present, S2 normal heart sound present, no click, no gallops and no murmurs GI: Auscultation: normal bowel sounds Skin: General skin exam: no rashes or lesions noted and ecchymosis Neuro: General: patient oriented x3 Extrem: General: Yes no clubbing, cyanosis or edema Objective Labs and Meds 09/18/22 05:49 09/18/22 05:49 Lab results: Laboratory Results - last 24 hr 09/17/22 09/17/22 09/17/22 12:10 12:30 12:30 WBC 13.8 H RBC 5.20 Hgb 15.1 Hct 44.3 MCV 85.2 MCH 29.0 MCHC 34.1 RDW 13.7 Plt Count 185 MPV 10.6 Immature Gran % (Auto) 0.5 H Neut % (Auto) 87.0 H Lymph % (Auto) 6.[address] [place] % (Auto) 5.9 Eos % (Auto) 0.0 Baso % (Auto) 0.1 Lymph # (Auto) 0.[address] [place] # (Auto) 0.8 Eos # (Auto) 0.0 Baso # (Auto) 0.0 Abs Immat Gran (auto) 0.07 H Absolute Neuts (auto) 12.0 H Absolute Nucleated RBC 0.000 Nucleated RBC % (auto) 0.0 Sodium 138 Potassium 4.2 Chloride 103 Carbon Dioxide 22 Anion Gap 17 BUN 15 Creatinine 0.78 Estim Creat Clear Calc 51.8 Estimated GFR > 60 POC Glucose 148 H Random Glucose 162 H Calcium 9.3 Magnesium 2.1 Troponin I High Sens B-Natriuretic Peptide TSH 0.94 Urine Color Urine Appearance Urine pH Ur Specific [place] Urine Protein Urine Glucose (UA) Urine Ketones Urine Blood Urine Nitrite Ur Leukocyte Esterase Urine RBC Urine WBC Ur Squamous Epith Cells Urine Bacteria Hyaline Casts COVID-19 (SUNDAY) COVID-19 Clin Com 09/17/22 09/17/22 09/17/22 12:30 12:30 14:41 WBC RBC Hgb Hct MCV MCH MCHC RDW Plt Count MPV Immature Gran % (Auto) Neut % (Auto) Lymph % (Auto) [place] % (Auto) Eos % (Auto) Baso % (Auto) Lymph # (Auto) [place] # (Auto) Eos # (Auto) Baso # (Auto) Abs Immat Gran (auto) Absolute Neuts (auto) Absolute Nucleated RBC Nucleated RBC % (auto) Sodium Potassium Chloride Carbon Dioxide Anion Gap BUN Creatinine Estim Creat Clear Calc Estimated GFR POC Glucose Random Glucose Calcium Magnesium Troponin I High Sens 26.3 H B-Natriuretic Peptide 512 H TSH Urine Color Urine Appearance Urine pH Ur Specific [place] Urine Protein Urine Glucose (UA) Urine Ketones Urine Blood Urine Nitrite Ur Leukocyte Esterase Urine RBC Urine WBC Ur Squamous Epith Cells Urine Bacteria Hyaline Casts COVID-19 (SUNDAY) Negative COVID-19 Clin Com See Note 09/17/22 09/17/22 09/18/22 14:41 14:59 05:49 WBC RBC Hgb Hct MCV MCH MCHC RDW Plt Count MPV Immature Gran % (Auto) Neut % (Auto) Lymph % (Auto) [place] % (Auto) Eos % (Auto) Baso % (Auto) Lymph # (Auto) [place] # (Auto) Eos # (Auto) Baso # (Auto) Abs Immat Gran (auto) Absolute Neuts (auto) Absolute Nucleated RBC Nucleated RBC % (auto) Sodium 139 Potassium 4.1 Chloride 105 Carbon Dioxide 24 Anion Gap 14 BUN 16 Creatinine 0.68 Estim Creat Clear Calc 59.4 Estimated GFR > 60 POC Glucose Random Glucose 131 H Calcium 8.4 D Magnesium Troponin I High Sens 25.2 H B-Natriuretic Peptide TSH Urine Color Yellow Urine Appearance Clear Urine pH 6.5 Ur Specific [place] 1.015 Urine Protein 30 (1+) H Urine Glucose (UA) Negative Urine Ketones Trace Urine Blood Negative Urine Nitrite Negative Ur Leukocyte Esterase Trace H Urine RBC 0-2 Urine WBC 0-5 Ur Squamous Epith Cells 0-2 Urine Bacteria None Seen Hyaline Casts 0-2 COVID-19 (SUNDAY) COVID-19 Clin Com 09/18/22 05:49 WBC 10.0 RBC 4.67 Hgb 14.1 Hct 41.0 MCV 87.8 MCH 30.2 MCHC 34.4 RDW 14.0 Plt Count 167 MPV 11.4 Immature Gran % (Auto) Neut % (Auto) Lymph % (Auto) [place] % (Auto) Eos % (Auto) Baso % (Auto) Lymph # (Auto) [place] # (Auto) Eos # (Auto) Baso # (Auto) Abs Immat Gran (auto) Absolute Neuts (auto) Absolute Nucleated RBC 0.000 Nucleated RBC % (auto) 0.0 Sodium Potassium Chloride Carbon Dioxide Anion Gap BUN Creatinine Estim Creat Clear Calc Estimated GFR POC Glucose Random Glucose Calcium Magnesium Troponin I High Sens B-Natriuretic Peptide TSH Urine Color Urine Appearance Urine pH Ur Specific [place] Urine Protein Urine Glucose (UA) Urine Ketones Urine Blood Urine Nitrite Ur Leukocyte Esterase Urine RBC Urine WBC Ur Squamous Epith Cells Urine Bacteria Hyaline Casts COVID-19 (SUNDAY) COVID-19 Clin Com Imaging Radiologist's impression: Impressions Hip X-Ray 09/17/22 13:33 IMPRESSION: * 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 * L1 vertebral body compression fracture is of uncertain chronicity. * No acute fracture or malalignment at the left hip. 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 * L1 vertebral body compression fracture is of uncertain chronicity. * No acute fracture or malalignment at the left hip. Chest X-Ray 09/17/22 15:34 IMPRESSION: 1. Mild pulmonary vascular congestion/early interstitial edema. 2. No airspace consolidation or definite pleural effusions. Assessment and Plan (1) Syncope: Status: Acute Syncope in this elderly woman without any obvious cause. Historically appears to be orthostatic syncope. Perform orthostatic vitals. She does not drink adequate oral fluids. If she does have significant orthostasis will consider IV hydration and/or initiation of vasoconstrictors. Will follow-up. Continue full disclosure cardiac monitoring. Consider echocardiogram to assess LV systolic function, do not hear any significant murmur suggestive aortic stenosis. (2) Atrial fibrillation with rapid ventricular response: Status: Acute Atrial fibrillation with difficult control rate rate. On high dose of metoprolol. Continue IV Cardizem drip. If rate remains difficult control and she requires maximal Cardizem drip, should consider synchronized cardioversion. Please keep her NPO past midnight. She is currently on full oral dose of Eliquis. Will continue to follow with you Time Spent With Patient Time: Total time managing care of this patient today ____ minutes. Procedures Date of Service Date of Service: 09/18/22
--- NOTE | 2022-09-18 13:38 | HO.PM.IMPN ---
Subjective Subjective Date of Service: 09/18/22 Interval History: seen this morning feels better HR improved then start to go up again after holding Cardizem drip Review of Systems No fever, chills or weakness No chest pain, palpitation No shortness of breath or coughing No abdominal pain, nausea or vomiting No urinary symptoms No any rash or wounds Physical Exam Vital Signs: Vital Signs: Last Vital Signs Temp 98.4 F 09/18/22 11:12 Pulse 70 09/18/22 11:12 Resp 16 09/18/22 11:12 BP 120/62 09/18/22 11:12 Pulse Ox 90 L 09/18/22 11:12 O2 Del Method 09/18/22 11:12 O2 Flow Rate 2 09/18/22 03:15 BMI result Body Mass Index 30.0 Const: Other: Constitutional : Awake, interactive, not in distress Neck : Normal inspection, Supple Cardiovascular : Irregular irregular, no JVP, no lower extremity edema, tachycardia Respiratory : good bilateral air entry, no crackles, wheezes or rhonchi Gastrointestinal: soft, lax, Normal bowel sounds, Non tender Skin : Warm, Dry Musculoskeletal: Mild local tenderness over right hip, good range of motion in the hip. Neurological : Alert & oriented x3, No focal deficit Objective Data Active Medications Acetaminophen (Acetaminophen 325 Mg Tablet) 650 mg PO Q6H PRN PRN Reason: Pain, Mild (Pain Scale 1-3) Last Admin: 09/18/22 08:41 Dose: 650 mg Documented By: MANDA Apixaban (Apixaban 2.5 Mg Tablet) 2.5 mg PO BID [facility] Last Admin: 09/18/22 08:42 Dose: 2.5 mg Documented By: MANDA Atorvastatin Calcium (Atorvastatin Calcium 10 Mg Tablet) 10 mg PO BEDTIME [facility] Diltiazem HCl 125 mg/ Sodium (Chloride) 125 mls @ 0 mls/hr IVCONT .Q0M [facility]; Protocol Last Titration: 09/18/22 12:27 Dose: 10 mg/hr, 10 mls/hr Documented By: MANDA Sodium Chloride (Ns) 1,000 mls @ 100 mls/hr IVCONT .Q10H [facility] Last Infusion: 09/17/22 22:04 Dose: 0 mls/hr Documented By: NIKO Metoprolol Tartrate (Metoprolol Tartrate 100 Mg Tablet) 100 mg PO BID [facility]; Protocol Last Admin: 09/18/22 08:43 Dose: 100 mg Documented By: MANDA Ondansetron HCl (Ondansetron Hcl 4 Mg/2 Ml Vial) 4 mg IVPUSH Q8H PRN PRN Reason: Nausea and Vomiting Pharmacy Consult (Consult Rx Perform Med Rec) 1 each MISCELLANE ONCE PRN PRN Reason: Consult order Sodium Chloride (0.9 % Sodium Chloride Flush 3 Ml Syringe) 3 ml IVFLUSH QSHIFT [facility] Last Admin: 09/18/22 08:41 Dose: 3 ml Documented By: MANDA Labs 09/18/22 05:49 09/18/22 05:49 Labs: Laboratory Results - last 24 hr 09/17/22 09/17/22 09/17/22 12:30 12:30 14:41 MCV MCH MCHC RDW Plt Count MPV Absolute Nucleated RBC Nucleated RBC % (auto) Anion Gap Estim Creat Clear Calc Estimated GFR Random Glucose Calcium Magnesium 2.1 Troponin I High Sens B-Natriuretic Peptide 512 H TSH 0.94 Urine Color Urine Appearance Urine pH Ur Specific [place] Urine Protein Urine Glucose (UA) Urine Ketones Urine Blood Urine Nitrite Ur Leukocyte Esterase Urine RBC Urine WBC Ur Squamous Epith Cells Urine Bacteria Hyaline Casts COVID-19 (SUNDAY) Negative COVID-19 Clin Com See Note 09/17/22 09/17/22 09/18/22 14:41 14:59 05:49 MCV MCH MCHC RDW Plt Count MPV Absolute Nucleated RBC Nucleated RBC % (auto) Anion Gap 14 Estim Creat Clear Calc 59.4 Estimated GFR > 60 Random Glucose 131 H Calcium 8.4 D Magnesium Troponin I High Sens 25.2 H B-Natriuretic Peptide TSH Urine Color Yellow Urine Appearance Clear Urine pH 6.5 Ur Specific [place] 1.015 Urine Protein 30 (1+) H Urine Glucose (UA) Negative Urine Ketones Trace Urine Blood Negative Urine Nitrite Negative Ur Leukocyte Esterase Trace H Urine RBC 0-2 Urine WBC 0-5 Ur Squamous Epith Cells 0-2 Urine Bacteria None Seen Hyaline Casts 0-2 COVID-19 (SUNDAY) COVID-19 Clin Com 09/18/22 05:49 MCV 87.8 MCH 30.2 MCHC 34.4 RDW 14.0 Plt Count 167 MPV 11.4 Absolute Nucleated RBC 0.000 Nucleated RBC % (auto) 0.0 Anion Gap Estim Creat Clear Calc Estimated GFR Random Glucose Calcium Magnesium Troponin I High Sens B-Natriuretic Peptide TSH Urine Color Urine Appearance Urine pH Ur Specific [place] Urine Protein Urine Glucose (UA) Urine Ketones Urine Blood Urine Nitrite Ur Leukocyte Esterase Urine RBC Urine WBC Ur Squamous Epith Cells Urine Bacteria Hyaline Casts COVID-19 (SUNDAY) COVID-19 Clin Com Assessment and Plan (1) Atrial fibrillation with rapid ventricular response: Status: Acute (2) Syncope: Status: Acute Plan An 87 years old lady with PMH of AFib, HTN, HLD who presents to the hospital after having syncope and fall at home. Paroxysmal 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 with RVR Likely aggravated by the fall, no clear infection appreciated Check magnesium Start home metoprolol p.o. Continue Cardizem drip and po consider Digoxin if persistent RvR keep npo post midnight for possible cardioversion Keep all monitor ST depressions Noticed on EKG with AFib RVR , likely demand mediated No reported chest pain Trended troponin Cardiology input appreciated Syncope Orthostatic, vasovagal, less likely seizure To check orthostatic vitals once heart rate controlled To get Echo Keep on telemetry Leukocytosis Pending urine analysis and chest x-ray Could be secondary to the fall Hypertension Hold home medications while on Cardizem drip DVT PPX Apixaban The patient will likely need Overnight hospital stay for treatment of AFib with RVR and evaluate for syncope pending rate control Time Spent With Patient Time: Total time managing care of this patient today ____ minutes. Quality Stroke Does the patient have a stroke diagnosis?: No VTE Prior VTE?: No VTE Risk Level:: Medical - moderate - high VTE Device Contraindication: Treatment Not Indicated VTE Drug Contraindication: N/A - Med Ordered
[2022-09-18] MEDS: dilTIAZem HCL 125 MG in 0.9 % Sodium Chloride 100 ML IVCONT (17:21)
[2022-09-18] MEDS: dilTIAZem HCL 30 MG TABLET 15 MG PO ×3 (17:24→20:37)
[2022-09-18] MEDS: Atorvastatin Calcium 10 MG TABLET PO (20:37)
[2022-09-19] VITALS (7 sets, daily range): BP systolic 135–163; BP diastolic 57–80; PULSE 67–93; RESP 15–20; TEMP 36.4–37.3; O2SAT 91–99
--- NOTE | 2022-09-19 07:00 | CA_ITS ---
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 Normal LV systolic function 2. Mild left atrial enlargement 3. Mild mitral regurgitation 4. Upper limits of normal RV systolic pressure 5. No gross pericardial effusion Findings Left Ventricle Normal left ventricular size, thickness, and systolic function. The visually estimated ejection fraction is between 55-60%. Diastolic function is indeterminate on the basis of available data. There is moderate septal asymmetric hypertrophy. Right Ventricle Mildly increased right ventricular cavity size. There is low normal right ventricular systolic function. Atria The left atrium is mildly dilated. There is no evidence of interatrial shunt. The right atrium is normal in size. Aortic Valve There is mild calcification of the aortic valve. There is no aortic valve stenosis. There is no aortic valve regurgitation. Mitral Valve There is mild anterior mitral leaflet thickening. There is mild mitral valve regurgitation. There is no mitral valve stenosis. Pulmonic Valve The pulmonic valve was not well visualized. Tricuspid Valve Likely normal tricuspid valve structure and function. There is mild tricuspid valve regurgitation. Normal right atrial pressure. There is no evidence of pulmonary hypertension. Great Vessels All visible segments of the aorta are normal in size. The pulmonary artery was not well visualized. Venous The inferior vena cava is normal in size and collapses greater than 50% with inspiration. Pericardium/Pleural There is no evidence of pericardial effusion. Prior Study Comparison Changes noted compared to prior study dated: 12/30/2018. RV systolic pressure upper limits of normal Measurements 2D Linear Measurements IVSd: 1.02 0.6-0.9/0.6-1.0 cm LVIDd: 4.78 3.9-5.3/4.2-5.9 cm LVIDd Index: 2.58 2.4-3.2/2.2-3.1 cm/m2 LVIDs: 3.39 2.0-3.6 cm LVPWd: 1.14 0.7-1.1 cm LA Diam: 4.00 2.7-3.8/3.0-4.0 cm LAIDs Index: 2.16 1.5-2.3 cm/m2 LV Mass: 234.04 67-162/88-224 g LV Mass Index: 126.51 43-95/49-115 g/m2 LVOT Diam: 2.00 3.0+(-)1.3 cm 2D Systolic Function EF 4C: 64.40 >55% Mitral Valve MV Pk E: 1.35 E'Lateral: 10.30 E/E' Lat: 13.10 Aortic Valve AoV Pk Fox: 1.00 AoV Pk Grad: 4.00 ADAM: 3.10 LVOT LVOT Pk Fox: 0.99 LVOT Mn Fox: 0.73 LVOT VTI: 0.18 LVOT Pk Grad: 4.00 LVOT Mn Grad: 2.00 LVOT Diam: 2.00 LVOT Area: 3.14 Diastolic Function MV Pk E: 1.35 E' Laterial: 10.30 E/E' Lat: 13.10 Right Ventricle TAPSE (mm): 17.10 TVS' Fox: 11.90 Tricuspid Valve TR Pk Fox: 2.91 TR Pk Grad: 34.00 RA Press: 3.00 RVSP: 37.00 Great Vessels Aorta Sinus of Valsalva: 3.20 2.0-3.5 cm Ao Asc: 2.80 2.1-3.4 cm Pulmonary Valve PV Pk Fox: 1.26 Peak PV Grad: 6.00 Updated in Other Vendor System with Status of Final Herb Bonilla MD electronically signed on 09/19/2022 12:11:42 PM with status of Final
[2022-09-19] MEDS: dilTIAZem HCL 30 MG TABLET PO (08:39)
[2022-09-19] MEDS: Metoprolol Tartrate 100 MG TABLET PO ×2 (08:39→21:56)
[2022-09-19] MEDS: Apixaban 2.5 MG TABLET PO ×2 (08:39→21:55)
--- NOTE | 2022-09-19 10:53 | PM.PNCARD ---
Subjective Subjective Date of Service: 09/19/22 Principal diagnosis: Syncope, 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. Interval history: Patient remains in persistent 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 with better rate control IV Cardizem and p.o. metoprolol. 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 At baseline she also has hypertension. This is going be a difficult problem to solve. However discussed with patient about the findings. She has no obvious cardiac symptoms with 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 with no palpitations or signs of congestive heart failure Review of Systems Constitutional: Reports no additional constitutional complaints Cardiovascular: Denies chest pain, Denies irregular heart rhythm, Reports lightheadedness, Denies Loss of Consciousness, Denies palpitations, Denies dyspnea and Denies orthopnea Respiratory: Denies dyspnea Gastrointestinal: Reports no additional gastrointestinal complaints Reports system reviewed and no additional complaints, except as documented Endocrine: Denies palpitations Physical Exam Vital Signs: Last Vital Signs Temp 97.6 F 09/19/22 07:59 Pulse 88 09/19/22 07:59 Resp 18 09/19/22 07:59 BP 162/74 H 09/19/22 07:59 Pulse Ox 94 09/19/22 07:59 O2 Del Method 09/19/22 07:59 O2 Flow Rate 2.0 09/19/22 07:59 BMI result Body Mass Index 30.0 Const General: cooperative, comfortable, no acute distress and alert Nutritional Appearance: overweight Orientation/consciousness: patient oriented x3 Neck Neck: Yes trachea midline, Yes supple and Yes no JVD Resp Effort & Inspection: normal respiratory effort Auscultation: clear to auscultation bilaterally Cardio Jugular venous distension: no JVD Rhythm: abnormal rhythm irregularly irregular Heart sounds: S1 normal heart sound present, S2 normal heart sound present, no click, no gallops and no murmurs GI Auscultation: normal bowel sounds Skin General skin exam: no rashes or lesions noted and ecchymosis Neuro General: patient oriented x3 Extrem General: Yes no clubbing, cyanosis or edema Objective Labs and Meds 09/18/22 05:49 09/18/22 05:49 Progress Note: A&P Assessment and plan (1) Atrial fibrillation with rapid ventricular response: Status: Acute Assessment and Plan: Atrial fibrillation, recurrent most likely triggered by her acute pain. Remains in 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. No signs or symptoms of heart failure. Requiring dual agents with high dose of metoprolol as well as Cardizem. I think it is reasonable to try to achieve rhythm control approach. Will start on IV amiodarone today and if remains in 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 by tomorrow will perform synchronized cardioversion. She has been adequately anticoagulated. This will help with management of her 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 and avoid medications that potentially cause hypotension. See below. Continue full oral anticoagulation with Eliquis. (2) Syncope: Status: Acute Assessment and Plan: Syncope which appears to be orthostatic in nature. This is going be a difficult problem to solve. Discuss the nature of orthostatic syncope with the patient. Advised to increase hydration. Orthostatic precautions to be pursued. Once cardioverted will see if this will improve her orthostatic intolerance. Will continue to follow with you Time Spent With Patient Time: Total time managing care of this patient today ____ minutes. Progress Note: Quality Stroke Does the patient have a stroke diagnosis?: No Procedures Date of Service Date of Service: 09/19/22
--- NOTE | 2022-09-19 11:16 | HO.PM.IMPN ---
Subjective Subjective Date of Service: 09/19/22 Interval History: seen this morning feels better overall but had 2 incidents of orthostatic hypotension HR improved but is still going up and symptomatic while in AFib No other overnight events Review of Systems No fever, chills or weakness No chest pain, palpitation No shortness of breath or coughing No abdominal pain, nausea or vomiting No urinary symptoms No any rash or wounds Physical Exam Vital Signs: Vital Signs: Last Vital Signs Temp 97.6 F 09/19/22 07:59 Pulse 88 09/19/22 07:59 Resp 18 09/19/22 07:59 BP 162/74 H 09/19/22 07:59 Pulse Ox 94 09/19/22 07:59 O2 Del Method 09/19/22 07:59 O2 Flow Rate 2.0 09/19/22 07:59 BMI result Body Mass Index 30.0 Const: Other: Constitutional : Awake, interactive, not in distress Neck : Normal inspection, Supple Cardiovascular : Irregular irregular, no JVP, no lower extremity edema, tachycardia Respiratory : good bilateral air entry, no crackles, wheezes or rhonchi Gastrointestinal: soft, lax, Normal bowel sounds, Non tender Skin : Warm, Dry Musculoskeletal: No tenderness over right hip, good range of motion in the hip. Neurological : Alert & oriented x3, No focal deficit Objective Data Active Medications Acetaminophen (Acetaminophen 325 Mg Tablet) 650 mg PO Q6H PRN PRN Reason: Pain, Mild (Pain Scale 1-3) Last Admin: 09/18/22 08:41 Dose: 650 mg Documented By: MANDA Apixaban (Apixaban 2.5 Mg Tablet) 2.5 mg PO BID COUNT INCLUDES THE [facility] Last Admin: 09/19/22 08:39 Dose: 2.5 mg Documented By: ROSSI Atorvastatin Calcium (Atorvastatin Calcium 10 Mg Tablet) 10 mg PO BEDTIME COUNT INCLUDES THE [facility] Last Admin: 09/18/22 20:37 Dose: 10 mg Documented By: AUSTIN Diltiazem HCl (Diltiazem Hcl 30 Mg Tablet) 30 mg PO QID COUNT INCLUDES THE [facility]; Protocol Last Admin: 09/19/22 08:39 Dose: 30 mg Documented By: ROSSI Diltiazem HCl 125 mg/ Sodium (Chloride) 125 mls @ 0 mls/hr IVCONT .Q0M COUNT INCLUDES THE [facility]; Protocol Last Titration: 09/19/22 09:37 Dose: 0 mg/hr, 0 mls/hr Documented By: ROSSI Sodium Chloride (Ns) 1,000 mls @ 100 mls/hr IVCONT .Q10H COUNT INCLUDES THE [facility] Last Infusion: 09/17/22 22:04 Dose: 0 mls/hr Documented By: NIKO Metoprolol Tartrate (Metoprolol Tartrate 100 Mg Tablet) 100 mg PO BID COUNT INCLUDES THE [facility]; Protocol Last Admin: 09/19/22 08:39 Dose: 100 mg Documented By: ROSSI Ondansetron HCl (Ondansetron Hcl 4 Mg/2 Ml Vial) 4 mg IVPUSH Q8H PRN PRN Reason: Nausea and Vomiting Pharmacy Consult (Consult Rx Perform Med Rec) 1 each MISCELLANE ONCE PRN PRN Reason: Consult order Sodium Chloride (0.9 % Sodium Chloride Flush 3 Ml Syringe) 3 ml IVFLUSH QSHIFT COUNT INCLUDES THE [facility] Last Admin: 09/19/22 08:39 Dose: Not Given Documented By: ROSSI Non-Admin Reason: IV Running Labs 09/18/22 05:49 09/18/22 05:49 Assessment and Plan (1) Leukocytosis: Status: Acute (2) Atrial fibrillation with rapid ventricular response: Status: Acute (3) Syncope: Status: Acute Plan An 87 years old lady with PMH of AFib, HTN, HLD who presents to the hospital after having syncope and fall at home. Paroxysmal 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 with RVR Likely aggravated by the fall, no clear infection appreciated Continue home metoprolol p.o. Discontinue Cardizem drip and po Start amiodarone drip keep npo post midnight for possible cardioversion tomorrow Keep all monitor ST depressions Demand mediated, No reported chest pain Trended troponin negative Cardiology input appreciated Syncope 2/2 Orthostatic hypotension Likely related to AFib RVR Hopefully will improve with controlling rate or change in rhythm Pending Echo Keep on telemetry Leukocytosis Resolved, no source of infection Could be secondary to the fall Hypertension Hold home medications while on Cardizem drip DVT PPX Apixaban The patient will likely need Overnight hospital stay for treatment of AFib with RVR and evaluate for syncope pending rate control Time Spent With Patient Time: Total time managing care of this patient today ____ minutes. Quality Stroke Does the patient have a stroke diagnosis?: No VTE Prior VTE?: No VTE Risk Level:: Medical - moderate - high VTE Device Contraindication: Treatment Not Indicated VTE Drug Contraindication: N/A - Med Ordered
--- NOTE | 2022-09-19 14:47 | PC.NURSE ---
pt had an order for an amiodorone drip, however, pt expressed a deep hesitancy towards it as her had an almost deadly reaction to the drug. Pt states she explained this to dr. nagy, who was understanding and said he wouldn't give amio Did not administer the medication. Sent a message relating this to Dr. Jimenez, who stated he would come by and chat with the pt
[2022-09-19] MEDS: Dronedarone HCl 400 MG TABLET PO ×2 (15:09→21:56)
[2022-09-19] MEDS: Atorvastatin Calcium 10 MG TABLET PO (21:56)
[2022-09-20] MEDS: 0.9 % Sodium Chloride Flush 3 ML SYRINGE IVFLUSH ×2 (00:08→08:59)
--- NOTE | 2022-09-20 01:38 | ECG_ITS ---
Test Reason : converted to SR Blood Pressure : / mmHG Vent. Rate : 061 BPM Atrial Rate : 061 BPM P-R Int : 160 ms QRS Dur : 076 ms QT Int : 428 ms P-R-T Axes : 072 049 064 degrees QTc Int : 430 ms Normal sinus rhythm Cannot rule out Inferior infarct , age undetermined T wave abnormality, consider anterior ischemia Abnormal ECG When compared to the previous EKG of Normal sinus rhythm has replaced Atrial fibrillation with rapid ventricular response Referred By: Justus Jimenez Electronically Signed By:YARED MONTERROSO MD
[2022-09-20 03:22] VITALS: BP 129/51; PULSE 65; RESP 15; TEMP 36.9; O2SAT 96
[2022-09-20 06:50] LABS: B Type Natriuretic Peptide 462 pg/mL (<100)
[2022-09-20 06:59] LABS: Magnesium 2.4 mg/dL (1.6-2.6)
[2022-09-20 07:49] VITALS: BP 155/67; PULSE 67; RESP 18; TEMP 36.7; O2SAT 96
[2022-09-20 08:43] LABS: Anion Gap 11 (12-20); Blood Urea Nitrogen 24 mg/dL (9-16); Calcium 8.7 mg/dL (8.4-10.2); Carbon Dioxide 29 mmol/L (22-29); Chloride 105 mmol/L (96-108); Creatinine Clr Calc Pharmacy 65.2; Estimated Glomerular Filt Rate > 60; Glucose Random 114 mg/dL (60-115); Potassium 3.5 mmol/L (3.3-5.1); Sodium 141 mmol/L (135-145)
[2022-09-20] MEDS: Metoprolol Tartrate 100 MG TABLET PO (09:00)
[2022-09-20] MEDS: Dronedarone HCl 400 MG TABLET PO (09:00)
[2022-09-20] MEDS: Apixaban 2.5 MG TABLET PO (09:01)
[2022-09-20 11:19] VITALS: BP 165/71; PULSE 95; RESP 18; TEMP 36.8; O2SAT 92
[2022-09-20] MEDS: Acetaminophen 325 MG TABLET 650 MG PO (11:32)
--- NOTE | 2022-09-20 11:57 | HO.PM.IMPN ---
Subjective Subjective Date of Service: 09/20/22 Interval History: syncope Physical Exam Vital Signs: Vital Signs: Last Vital Signs Temp 98.2 F 09/20/22 11:19 Pulse 95 09/20/22 11:19 Resp 18 09/20/22 11:19 BP 165/71 H 09/20/22 11:19 Pulse Ox 92 09/20/22 11:19 O2 Del Method 09/20/22 11:19 O2 Flow Rate 2 09/20/22 07:49 Oxygen Flow Rate 2 09/20/22 07:33 BMI result Body Mass Index 30.0 General: AO X 3, no acute distress Resp: CTA bilateral, no accessory muscles used CVS: S1,S2,RRR GI: soft, non tender, non distended Neuro: motor grossly intact, alert Psych: appropriate affect, appropriate insight Objective Data Active Medications Acetaminophen (Acetaminophen 325 Mg Tablet) 650 mg PO Q6H PRN PRN Reason: Pain, Mild (Pain Scale 1-3) Last Admin: 09/20/22 11:32 Dose: 650 mg Documented By: RALPH Apixaban (Apixaban 2.5 Mg Tablet) 2.5 mg PO BID [facility] Last Admin: 09/20/22 09:01 Dose: 2.5 mg Documented By: AZEB Atorvastatin Calcium (Atorvastatin Calcium 10 Mg Tablet) 10 mg PO BEDTIME [facility] Last Admin: 09/19/22 21:56 Dose: 10 mg Documented By: EBONI Dronedarone (Dronedarone Hcl 400 Mg Tablet) 400 mg PO BID [facility] Last Admin: 09/20/22 09:00 Dose: 400 mg Documented By: AZEB Sodium Chloride (Ns) 1,000 mls @ 100 mls/hr IVCONT .Q10H [facility] Last Infusion: 09/17/22 22:04 Dose: 0 mls/hr Documented By: NIKO Metoprolol Succinate (Metoprolol Succinate Er 100 Mg Tab.Er.24h) 100 mg PO BEDTIME [facility]; Protocol Ondansetron HCl (Ondansetron Hcl 4 Mg/2 Ml Vial) 4 mg IVPUSH Q8H PRN PRN Reason: Nausea and Vomiting Pharmacy Consult (Consult Rx Perform Med Rec) 1 each MISCELLANE ONCE PRN PRN Reason: Consult order Sodium Chloride (0.9 % Sodium Chloride Flush 3 Ml Syringe) 3 ml IVFLUSH QSHIFT [facility] Last Admin: 09/20/22 08:59 Dose: 3 ml Documented By: AZEB Labs 09/18/22 05:49 09/20/22 08:03 Labs: Laboratory Results - last 24 hr 09/20/22 09/20/22 09/20/22 06:07 06:07 08:03 Anion Gap 11 L Estim Creat Clear Calc 65.2 Estimated GFR > 60 Random Glucose 114 Calcium 8.7 Magnesium 2.4 B-Natriuretic Peptide 462 H Assessment and Plan (1) Leukocytosis: Status: Acute (2) Atrial fibrillation with rapid ventricular response: Status: Acute (3) Syncope: Status: Acute Plan An 87 years old lady with PMH of pAFib, HTN, HLD who presented to the hospital after having syncope and fall at home. Paroxysmal 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 with RVR now in sinus continue multaq, change metoprolol to succinate 100mg at bedtime continue eliquis ST depressions Demand mediated, No reported chest pain Trended troponin negative Cardiology input appreciated Syncope 2/2 Orthostatic hypotension wtih supine hypertension possibly related to dehydration, given iv hyrdation, beta sofia moved to evening only holding losartan Leukocytosis Resolved, no source of infection Could be secondary to the fall DVT PPX Apixaban full code reason for continued hospitalization:safe dispo pending Time Spent With Patient Time: Total time managing care of this patient today ____ minutes. Quality Stroke Does the patient have a stroke diagnosis?: No VTE Prior VTE?: No VTE Risk Level:: Medical - moderate - high VTE Device Contraindication: Treatment Not Indicated VTE Drug Contraindication: N/A - Med Ordered
--- NOTE | 2022-09-20 11:58 | PM.PNCARD ---
Subjective Subjective Date of Service: 09/20/22 Principal diagnosis: Syncope, 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. Interval history: Patient converted to sinus rhythm last night with Multaq. Remains in sinus rhythm. No orthostatic vitals done today. Patient however complains of generalized pain in her back and buttocks from the fall. No bleeding issues or neurologic events Review of Systems Constitutional: Reports no additional constitutional complaints Eyes: Reports no additional eye complaints Cardiovascular: Reports no additional cardiovascular complaints Respiratory: Reports no additional respiratory complaints Gastrointestinal: Reports no additional gastrointestinal complaints Genitourinary: Reports no additional female genitourinary complaints Musculoskeletal: Reports no additional musculoskeletal complaints Skin/Breast: Reports system reviewed and no additional complaints, except as docu Physical Exam Vital Signs: Last Vital Signs Temp 98.2 F 09/20/22 11:19 Pulse 95 09/20/22 11:19 Resp 18 09/20/22 11:19 BP 165/71 H 09/20/22 11:19 Pulse Ox 92 09/20/22 11:19 O2 Del Method 09/20/22 11:19 O2 Flow Rate 2 09/20/22 07:49 Oxygen Flow Rate 2 09/20/22 07:33 BMI result Body Mass Index 30.0 Const General: cooperative, comfortable, no acute distress and alert Nutritional Appearance: overweight Orientation/consciousness: patient oriented x3 Neck Neck: Yes trachea midline, Yes supple and Yes no JVD Resp Effort & Inspection: normal respiratory effort Auscultation: clear to auscultation bilaterally Cardio Jugular venous distension: no JVD Rate: regular rate Rhythm: regular rhythm Heart sounds: S1 normal heart sound present, S2 normal heart sound present, no click, no gallops and no murmurs GI Auscultation: normal bowel sounds Skin General skin exam: no rashes or lesions noted and ecchymosis Neuro General: patient oriented x3 Extrem General: Yes no clubbing, cyanosis or edema Objective Labs and Meds 09/18/22 05:49 09/20/22 08:03 Lab results: Laboratory Results - last 24 hr 09/20/22 09/20/22 09/20/22 06:07 06:07 08:03 Sodium 141 Potassium 3.5 Chloride 105 Carbon Dioxide 29 Anion Gap 11 L BUN 24 H Creatinine 0.62 Estim Creat Clear Calc 65.2 Estimated GFR > 60 Random Glucose 114 Calcium 8.7 Magnesium 2.4 B-Natriuretic Peptide 462 H Progress Note: A&P Assessment and plan (1) PAF (paroxysmal 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): Status: Acute Assessment and Plan: Paroxysmal 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 converted with addition of Multaq. I think she will benefit from rhythm control approach which will reduce use of other medications that can potentially drop her blood pressure. Continue Multaq 400 mg b.i.d. and change metoprolol to Toprol-XL 100 mg at nighttime to avoid orthostatic hypertension during daytime. Continue full oral anticoagulation Eliquis. Patient can be discharged from cardiac perspective will set up for outpatient follow-up. (2) Syncope: Status: Acute Assessment and Plan: Syncope which appears to be secondary to orthostatic hypertension. Currently back in sinus rhythm. Switch to metoprolol as above. We discussed in details about orthostatic precautions. Maintain adequate hydration. Would perform orthostatic vitals in sinus rhythm to assess if she still continues to have significant orthostasis. This could be an issue given that she has baseline hypertension. Will set up for outpatient follow-up. Thank you for allowing me to partake in the care Time Spent With Patient Time: Total time managing care of this patient today ____ minutes. Progress Note: Quality Stroke Does the patient have a stroke diagnosis?: No Procedures Date of Service Date of Service: 09/20/22
--- NOTE | 2022-09-20 12:52 | PM.DS ---
DS: Providers Provider Date of Service: 09/20/22 Date of admission: 09/17/22 14:51 Primary care physician: Oskar Lee MD Consults: 09/17/22 14:50 Consult to Cardiology Routine Consulting Provider: Chilo Lopez Reason for consultation: Afib rvr, ST depression DS: Diagnosis Discharge Diagnosis (1) PAF (paroxysmal 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): Status: Acute (2) Syncope: Status: Acute DS: Summary Hospital Course Hospital Course: from initial hpi: Chief Complaint: Syncope An 87 years old lady with PMH of AFib, HTN, HLD who presents to the hospital after having syncope and fall at home.? The patient reported that she went from her room to the next room using the walker that she left at the door and was standing leaning to the chair when she suddenly found herself on the floor as she described it as plaque out.? She thing that lasted only for seconds before she came here consciousness and was totally aware and able to crawl back to her room to get in contact with her son to bring her to the hospital.? She reports that she is having pain in her hip area but she was able to stand and move her leg. In the emergency she was noted to have 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 with RVR with heart rate between 140-190.? Denies any fever, chills, chest pain, palpitation, shortness of breath, nausea, vomiting, change in bowel habit or urinary symptoms. X-rays of hip were negative for any acute finding.? Blood work showed mildly elevated troponin and BNP with reported ST depressions in the EKG with no chest pain. Admitted for further evaluation and treatment. hospital course: Patient was admitted for syncope due to orthostatic hypotension with supine hypertension. Her losartan and amlodipine were held. Her metoprolol was changed to metoprolol succinate 100 mg in the bedtime. She was given some IV hydration. For paroxysmal 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 with rapid ventricular response she was given amiodarone and then converted to normal sinus rhythm. She will continue on Multaq and Toprol in the evening. She will continue on Eliquis. For her fall she was seen by physical therapy recommended short-term rehab at skilled nurse facility. Patient is feeling better will be discharged to snf. Time Spent with Patient Time attestation: Total time managing care of this patient today ____ minutes. Discharge coordination time: Greater than 30 minutes Quality: Safe Use of Opioids Does Pt have an Active Cancer Diagnosis on the Problem List?: No Quality: Stroke Does the patient have a stroke diagnosis?: No Physical Exam Vital Signs: Vital Signs: Last Vital Signs Temp 98.2 F 09/20/22 11:19 Pulse 95 09/20/22 11:19 Resp 18 09/20/22 11:19 BP 165/71 H 09/20/22 11:19 Pulse Ox 92 09/20/22 11:19 O2 Del Method 09/20/22 11:19 O2 Flow Rate 2 09/20/22 07:49 Oxygen Flow Rate 2 09/20/22 07:33 BMI result Body Mass Index 30.0 Const: General: cooperative, comfortable, no acute distress and alert Nutritional Appearance: overweight Orientation/consciousness: patient oriented x3 Neck: Neck: Yes trachea midline, Yes supple and Yes no JVD Resp: Effort & Inspection: normal respiratory effort Auscultation: clear to auscultation bilaterally Cardio: Jugular venous distension: no JVD Rate: regular rate Rhythm: regular rhythm Heart sounds: S1 normal heart sound present, S2 normal heart sound present, no click, no gallops and no murmurs GI: Auscultation: normal bowel sounds Skin: General skin exam: no rashes or lesions noted and ecchymosis Neuro: General: patient oriented x3 Extrem: General: Yes no clubbing, cyanosis or edema DS: Data Data Completed and Pending Labs on day of discharge: Laboratory Results - last 24 hr 09/20/22 09/20/22 09/20/22 06:07 06:07 08:03 Sodium 141 Potassium 3.5 Chloride 105 Carbon Dioxide 29 Anion Gap 11 L BUN 24 H Creatinine 0.62 Estim Creat Clear Calc 65.2 Estimated GFR > 60 Random Glucose 114 Calcium 8.7 Magnesium 2.4 B-Natriuretic Peptide 462 H Discharge Plan Discharge Anticipated Discharge Date/Time: 09/20/22 12:49 Patient Disposition: Xfer SNF Discharge Diagnosis: afib, syncope, orthostatic hypotension Referrals: Oskar Lee MD [Primary Care Provider] - 1 Week Discharge Medications: New Multaq 400 mg Tablet 400 mg PO BID Qty: 0 0RF metoprolol succinate 100 mg Tablet Extended Release 24 Hr 100 mg PO BEDTIME Qty: 0 0RF Protocol: Hold for SBP/HR < HOLD for SBP < : 90 HOLD for HR < : 60 Continued multivitamin Tablet 1 tab PO DAILY Eliquis 2.5 mg tablet 2.5 mg PO BID simvastatin [Zocor] 10 mg tablet 10 mg PO BEDTIME alendronate 70 mg tablet 70 mg PO ESCOBAR@0900 Discontinued losartan 100 mg tablet 100 mg PO DAILY amlodipine [Norvasc] 5 mg tablet 5 mg PO DAILY metoprolol tartrate 100 mg tablet 100 mg PO BID Discharge Orders: Discharge Order (Routine); Ordered 09/20/22 Ordered By: Jose Guadalupe Talbert Diet: Advance to usual diet Activity on Discharge: As tolerated Stand Alone Forms: Patient Portal Discharge page Care Plan Goals: recovery Health Concerns: afib, orthostatic hypotension Plan of Treatment: meds changed as above, rehab Assessment: see above
--- NOTE | 2022-09-20 13:15 | MHC.CM.PN ---
pt to go to [facility] today at [facility]
[2022-09-20 14:45] LABS: COVID-19 Test Negative (Negative); IDNOW Serial# 9DB6401D
== END 2022-09-20 15:00 | disposition skilled nursing facility (03) | DRG 312 ==
LOC: HO.ED 14:28 → HO.EDOVER 15:06 → HO.IMC 20:01
PROVIDERS: Admitting Provider Student in an Organized Health Care Education/Training Program; Emergency Provider Emergency Medicine; PCP Internal Medicine; Visit Provider Internal Medicine
DX: I95.1 Orthostatic hypotension (principal); I24.8 Other forms of acute ischemic heart disease; I48.0 Paroxysmal 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; I10 Essential (primary) hypertension; D72.829 Elevated white blood cell count, unspecified; Z20.822 Contact with and (suspected) exposure to COVID-19; Z87.891 Personal history of nicotine dependence; Z88.5 Allergy status to narcotic agent; Z79.01 Long term (current) use of anticoagulants; Z79.899 Other long term (current) drug therapy
CPT/HCPCS: 36415; 71045; 72100; 73502; 80048; 81001; 82947; 83735; 83880; 84443; 84484; 85025; 85027; 87635; 93005; 93306; 96365; 96375; 96376; 97116; 97162; 97530; 99285; J1940; J3475; Q9957

== ENCOUNTER 2023-03-21 08:02 | Outpatient (REF) | payer MEDICARE, SELFPAY ==
[2023-03-21 11:38] LABS: MANUAL DIFF FLAG NO
[2023-03-21 11:55] LABS: Basophils Percent Auto 0.5 % (0-2); Eosinophils Percent Auto 0.4 % (0-4); Hematocrit 44.7 % (37.0-47.0); Hemoglobin 14.2 g/dl (12.0-16.0); Imm Gran Abs Auto 0.02 X10*3/uL (0.00-0.03); Imm Gran Pct Auto 0.3 % (0.0-0.4); Lymphocytes Absolute Auto 1.6 X10*3/uL (1.2-4.9); Lymphocytes Percent Auto 21.1 % (20-40); Mean Corpuscular HGB Conc 31.8 g/dl (31.0-35.0); Mean Corpuscular Hemoglobin 29.6 pg (27.0-33.0); Mean Corpuscular Volume 93.3 fL (80.0-98.0); Mean Platelet Volume 11.6 fL (9.4-12.3); Monocytes Absolute Auto 0.5 X10*3/uL (0.1-1.2); Monocytes Percent Auto 5.8 % (2-11); Neutrophils Absolute Auto 5.6 x10*3/uL (2.0-8.3); Neutrophils Percent Auto 71.9 % (45-73); Platelet Count 243 X10*3/uL (160-400); Red Blood Count 4.79 X10*6/uL (4.20-5.50); Red Cell Distribution Width 14.2 % (11.0-16.0); White Blood Count 7.8 X10*3/uL (4.8-10.8)
[2023-03-21 12:27] LABS: Alanine Aminotransferase 13 U/L (0-31); Albumin Level 4.5 g/dL (3.5-5.0); Alkaline Phosphatase 49 U/L (39-117); Anion Gap 11 (12-20); Aspartate Amino Transferase 18 U/L (5-31); Bilirubin Direct 0.2 mg/dL (0.0-0.5); Bilirubin Total 0.6 mg/dL (0.0-1.0); Blood Urea Nitrogen 10 mg/dL (9-16); Carbon Dioxide 28 mmol/L (22-29); Chloride 105 mmol/L (96-108); Cholesterol 178 mg/dL (<200); Glucose Fasting 108 mg/dL (60-99); HDL Cholesterol 30 mg/dL (>40); LDL Cholesterol Calculated 126 mg/dL (<100); Potassium 3.8 mmol/L (3.3-5.1); Sodium 140 mmol/L (135-145); Triglycerides 113 mg/dL (<150)
[2023-03-21 12:29] LABS: Free T4 (Free Thyroxine) 1.17 ng/dL (0.71-1.85); Thyroid Stimulating Hormone 0.42 uIU/mL (0.32-4.0)
== END 2023-03-21 08:03 | disposition home or self-care (01) ==
LOC: HO.HMGCLDS 08:02
PROVIDERS: PCP Internal Medicine; Visit Provider Internal Medicine
DX: R53.83 Other fatigue (principal); E78.5 Hyperlipidemia, unspecified
CPT/HCPCS: 36415; 80051; 80061; 80076; 82947; 84439; 84443; 84520; 85025

== ENCOUNTER 2023-06-10 20:54 | Emergency (ER) | payer MEDICARE, SELFPAY ==
--- NOTE | 2023-06-10 | ECG_ITS ---
Test Reason : HYPERTENSION Blood Pressure : / mmHG Vent. Rate : 072 BPM Atrial Rate : 072 BPM P-R Int : 142 ms QRS Dur : 074 ms QT Int : 424 ms P-R-T Axes : 056 059 019 degrees QTc Int : 464 ms Sinus rhythm with Premature atrial complexes Nonspecific ST abnormality Inferior leads Abnormal ECG When compared with ECG of 20-SEP-2022 01:41, Premature atrial complexes are now Present T wave inversion now evident in Inferior leads Referred By: Generic ED Physician Electronically Signed By:CARLOS LEOS MD
[2023-06-10 20:58] VITALS: BP 176/90; BP 228/94; PULSE 65; PULSE 71; RESP 18; TEMP 36.6; O2SAT 94; O2SAT 98; BMI 20.2
[2023-06-10 21:16] VITALS: BP 213/92
--- NOTE | 2023-06-10 21:18 | PC.NURSE ---
pt biba from home reporting HTN 210/90, pt reports seeing pcp a few days ago and not given any extra blood pressure medications. pt reports taking metoprolol twice today. pt denies chest pain, sob and dizziness. pt denies n/v/d. pt current bp 213/92, pt normal sinus on tele 70-72. provider at bedside discussing pt care.
[2023-06-10 21:25] LABS: MANUAL DIFF FLAG NO
[2023-06-10 21:29] LABS: Basophils Percent Auto 0.4 % (0-2); Eosinophils Absolute Auto 0.1 X10*3/uL (0.0-0.4); Eosinophils Percent Auto 1.4 % (0-4); Hematocrit 43.3 % (37.0-47.0); Hemoglobin 14.4 g/dl (12.0-16.0); Imm Gran Abs Auto 0.01 X10*3/uL (0.00-0.03); Imm Gran Pct Auto 0.2 % (0.0-0.4); Lymphocytes Absolute Auto 1.5 X10*3/uL (1.2-4.9); Lymphocytes Percent Auto 26.9 % (20-40); Mean Corpuscular HGB Conc 33.3 g/dl (31.0-35.0); Mean Corpuscular Hemoglobin 29.6 pg (27.0-33.0); Mean Corpuscular Volume 89.1 fL (80.0-98.0); Mean Platelet Volume 10.5 fL (9.4-12.3); Monocytes Absolute Auto 0.4 X10*3/uL (0.1-1.2); Monocytes Percent Auto 7.2 % (2-11); Neutrophils Absolute Auto 3.6 x10*3/uL (2.0-8.3); Neutrophils Percent Auto 63.9 % (45-73); Platelet Count 254 X10*3/uL (160-400); Red Blood Count 4.86 X10*6/uL (4.20-5.50); Red Cell Distribution Width 13.3 % (11.0-16.0); White Blood Count 5.6 X10*3/uL (4.8-10.8)
--- NOTE | 2023-06-10 21:29 | ED.GENADULT ---
HPI - General Adult General Chief complaint: General Medical Stated complaint: hypertension, bp 1st 220/90, 2nd 176/90 Time Seen by Provider: 06/10/23 21:14 Source: patient Mode of arrival: EMS Limitations: no limitations History of Present Illness HPI narrative: patient comes in the emergency room complaining of high blood pressure. Patient states that she has been struggling with high blood pressure for several months. Patient has tried several medications . patient states that she is compliant with her medications and with her blood thinners for 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. Patient states that she has no chest pain or shortness of breath, no visual changes, no headache. Patient states that she keeps an eye on her blood pressure since she has recently been started on a new blood pressure medication by her primary care physician. Related Data Home Medications Medication Instructions Recorded Confirmed apixaban 2.5 mg tablet (Eliquis) 2.5 mg PO BID 04/04/21 09/17/22 alendronate 70 mg tablet 70 mg PO ESCOBAR@0900 04/12/22 09/17/22 multivitamin 1 tab PO DAILY 09/17/22 09/17/22 Previous Rx's Medication Instructions Recorded metoprolol succinate 100 mg 100 mg PO BEDTIME #0 tabs 09/20/22 tablet,extended release 24 hr amiodarone 200 mg tablet 200 mg PO DAILY #90 tabs 11/04/22 Allergies Allergy/AdvReac Type Severity Reaction Status Date / Time morphine [MORPHINE] Allergy Severe VOMITING Verified 06/10/23 21:14 amiodarone Allergy Nausea and Verified 06/10/23 21:14 Vomiting Review of Systems Review of Systems: Constitutional : No Weight loss, No Fever, No Chills, No Night Sweats, No Fatigue, No Malaise ENT/Mouth : No Hearing loss, No Ear Pain, No Nasal Congestion, No Sinus Pain, No Hoarseness, No sore throat, No Rhinorrhea, No Swallowing Difficulty Eyes: No Eye Pain, No Swelling, No Redness, No Foreign Body, No Discharge, No Vision Changes Cardiovascular : complaining of high blood pressure No Chest Pain, No SOB, No Dyspnea on Exertion, No Orthopnea, No Edema, No Palpitations Respiratory : No Cough, No Sputum, No Wheezing, No Smoke Exposure, No Dyspnea Gastrointestinal : No Nausea, No Vomiting, No Diarrhea, No Constipation, No abdominal Pain, No Hematochezia, No Melena Genitourinary : no irregular bleeding, No Dysuria, No Urinary Frequency, No Hematuria, No Urinary Incontinence, No Urgency, No Flank Pain, No Urinary Flow Changes, No Hesitancy Musculoskeletal : No joint pain, No Myalgias, No Joint Swelling Skin : No Skin Lesions, No rash Neuro : No Weakness, No Numbness, No Paresthesias, No Loss of Consciousness, No Dizziness, No Headache Psych : No Anxiety/Panic, No Depression, No SI/HI/AH/VH, No Social Issues, Heme/Lymph: No Bruising, No Bleeding,No Lymphadenopathy Endocrine : No Polyuria, No Polydipsia, No Temperature Intolerance [facility] Past Medical History Medical History 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 PAF (paroxysmal 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) Endometrial cyst of ovary Surgical History History of total right hip arthroplasty H/O dilation and curettage S/P right oophorectomy Family History Family History Father Rectal cancer Stroke Mother CVD (cardiovascular disease) Heart failure Social History Social History Household Members: None Do you presently have visiting nurse or other home services: No Unable to assess alcohol history related to: Unknown Alcohol intake: never Patient Tobacco Use Status: Former Tobacco user Quit Date: 1985 Smoked in Last 30 Days: No Use of substances other than those prescribed or required for medical reasons: No Advance Directives: No Advance Directives Information Provided: No service: No Physical Exam ED Vital Signs: Vital Signs - 24 hr 06/10/23 20:58 06/10/23 21:16 06/10/23 21:41 Temperature 97.8 F Pulse Rate 71 Respiratory Rate 18 Blood Pressure 228/94 H 213/92 H 203/103 H Pulse Oximetry 94 Oxygen Delivery Method Room Air 06/10/23 21:59 06/10/23 22:08 06/10/23 23:17 Temperature Pulse Rate 87 77 77 Respiratory Rate 18 18 Blood Pressure 145/76 H 195/78 H 127/55 L Pulse Oximetry 95 98 Oxygen Delivery Method Room Air Room Air BMI result Body Mass Index 20.2 Const Other: Appearance: Alert. Oriented X3. No acute distress. well-appearing Eyes: Pupils equal, round and reactive to light. ENT: Pharynx normal. Neck: Normal inspection. Neck supple. No lymph nodes noted. No crepitus CVS: Normal heart rate and rhythm. Pulses normal. Normal S1 and S2 Respiratory: No respiratory distress. Breath sounds normal. No Wheezing. No rales Abdomen: Soft and nontender. No rigidity. No distention. Skin: Skin warm and dry. Normal skin color. Normal skin turgor. Extremities: No lower extremity edema. No Lacerations. No Rash Neuro: Oriented X 3. No motor deficit. No sensory deficit. Moving all extremities. No slurred speech. CN 2 through 12 grossly intact Psych: calm, cooperative, normal affect Course Course Course Narrative: - patient is asymptomatic, blood pressure 228/94 - patient's labs pending - patient given 1 dose of labetalol p.o.. Also, given 1 dose of Zofran, as patient is sensitive to the pressure medications and gets very nauseous Medications Administered Discontinued Medications Generic Name Dose Route Start Last Admin Trade Name Vickie PRN Reason Stop Dose Admin Labetalol HCl 100 mg 06/10/23 21:31 06/10/23 21:41 Labetalol Hcl 100 Mg Tablet PO 06/10/23 21:32 100 mg ONCE ONE Administration Protocol Ondansetron HCl 4 mg 06/10/23 21:31 06/10/23 21:41 Ondansetron Odt 4 Mg Tab.Rapdis TRANSLINGU 06/10/23 21:32 4 mg ONCE ONE Administration Medical Decision Making Medical Decision Making [facility] Narrative: - my interpretation of EKG: Normal sinus rhythm, occasional PVCs, no ST segment depression or elevation, nonspecific T-wave inversion in lead 3, QTC 464 - patient's blood pressure improved to 127 systolic, patient asymptomatic. - Patient requested to have her to home medications discontinue and be switched to labetalol. However, I discussed with the patient that he would be best to discusses with her primary care physician, as she recently started a new medication for blood pressure which she does not remember what the name is. Discussed with the patient that labetalol can be pretty strong and if her blood pressure is normal, it can drop with quite a bit. At this time, it is best not to switch her medications and to have a good follow-up with her primary care physician. Patient agrees with plan. Differential Diagnosis Differential Diagnoses: The differential diagnosis associated with the presentation includes ( Hypertension, hypertensive urgency, hypertensive emergency) Admission/Observation Consideration of admission/observation: Escalation of care including admission/observation considered ( patient came in with a very elevated blood pressure, admission was considered) Lab Data MDM Lab Attestation statement: I reviewed the patient's lab results. 06/10/23 21:21 06/10/23 21:21 Labs: Lab Results 06/10/23 Range/Units 21:21 WBC 5.6 (4.8-10.8) X10*3/uL RBC 4.86 (4.20-5.50) X10*6/uL Hgb 14.4 (12.0-16.0) g/dl Hct 43.3 (37.0-47.0) % MCV 89.1 (80.0-98.0) fL MCH 29.6 (27.0-33.0) pg MCHC 33.3 (31.0-35.0) g/dl RDW 13.3 (11.0-16.0) % Plt Count 254 (160-400) X10*3/uL MPV 10.5 (9.4-12.3) fL Immature Gran % (Auto) 0.2 (0.0-0.4) % Neut % (Auto) 63.9 (45-73) % Lymph % (Auto) 26.9 (20-40) % [place] % (Auto) 7.2 (2-11) % Eos % (Auto) 1.4 (0-4) % Baso % (Auto) 0.4 (0-2) % Lymph # (Auto) 1.5 (1.2-4.9) X10*3/uL [place] # (Auto) 0.4 (0.1-1.2) X10*3/uL Eos # (Auto) 0.1 (0.0-0.4) X10*3/uL Baso # (Auto) 0.0 (0.0-0.2) X10*3/uL Abs Immat Gran (auto) 0.01 (0.00-0.03) X10*3/uL Absolute Neuts (auto) 3.6 (2.0-8.3) x10*3/uL Absolute Nucleated RBC 0.000 (0.0-0.012) X10*3/uL Nucleated RBC % (auto) 0.0 (0.0-0.2) /100WBC Sodium 141 (135-145) mmol/L Potassium 4.1 (3.3-5.1) mmol/L Chloride 105 (96-108) mmol/L Carbon Dioxide 27 (22-29) mmol/L Anion Gap 13 (12-20) BUN 13 (9-16) mg/dL Creatinine 0.70 (0.5-1.4) mg/dL Estim Creat Clear Calc 58.7 Estimated GFR > 60 Random Glucose 114 (60-115) mg/dL Calcium 9.6 D (8.4-10.2) mg/dL Total Bilirubin 0.6 (0.0-1.0) mg/dL AST 19 (5-31) U/L ALT 12 (0-31) U/L Alkaline Phosphatase 62 (39-117) U/L Troponin I High Sens 3.6 D (<3.5-17.0) ng/L B-Natriuretic Peptide 766 H (<100) pg/mL Total Protein 7.3 (6.5-8.0) g/dL Albumin 4.3 (3.5-5.0) g/dL Critical Care Time Critical Care Time Critical Care Time: Yes Total Critical Care Time: 60 Attestation: I have personally provided critical care time. Time includes review of lab data, radiology results, discussion with consultants, and monitoring for potential decompensation. Intervention performed as documented. Discharge Plan Discharge Clinical Impression: Hypertension Patient Disposition: Home, Self-Care Instructions: Hypertension (ED) Additional Instructions: You were given 100 mg of labetalol in the emergency room. Please follow-up with your primary care physician tomorrow. If you have any worsening or new symptoms, please return to the emergency room or call 911 Prescriptions: No Action amiodarone 200 mg tablet 200 mg PO DAILY Qty: 90 3RF multivitamin Tablet 1 tab PO DAILY metoprolol succinate 100 mg Tablet Extended Release 24 Hr 100 mg PO BEDTIME Qty: 0 0RF Protocol: Hold for SBP/HR < HOLD for SBP < : 90 HOLD for HR < : 60 Eliquis 2.5 mg tablet 2.5 mg PO BID alendronate 70 mg tablet 70 mg PO ESCOBAR@0900
[2023-06-10 21:41] VITALS: BP 203/103
[2023-06-10] MEDS: Ondansetron ODT 4 MG TAB.RAPDIS TRANSLINGU (21:41)
[2023-06-10] MEDS: Labetalol HCL 100 MG TABLET PO (21:41)
[2023-06-10 21:42] LABS: Alanine Aminotransferase 12 U/L (0-31); Albumin Level 4.3 g/dL (3.5-5.0); Alkaline Phosphatase 62 U/L (39-117); Anion Gap 13 (12-20); Aspartate Amino Transferase 19 U/L (5-31); Bilirubin Total 0.6 mg/dL (0.0-1.0); Blood Urea Nitrogen 13 mg/dL (9-16); Calcium 9.6 mg/dL (8.4-10.2); Carbon Dioxide 27 mmol/L (22-29); Chloride 105 mmol/L (96-108); Creatinine Clr Calc Pharmacy 58.7; Estimated Glomerular Filt Rate > 60; Glucose Random 114 mg/dL (60-115); Potassium 4.1 mmol/L (3.3-5.1); Sodium 141 mmol/L (135-145); Total Protein 7.3 g/dL (6.5-8.0)
[2023-06-10 21:48] LABS: Troponin-I High Sensitivity 3.6 ng/L (<3.5-17.0)
[2023-06-10 21:59] VITALS: BP 145/76; PULSE 87; RESP 18; O2SAT 95
[2023-06-10 22:00] LABS: B Type Natriuretic Peptide 766 pg/mL (<100)
[2023-06-10 22:08] VITALS: BP 195/78; PULSE 77
--- NOTE | 2023-06-10 22:18 | MHC.EDTECH ---
This Tech assumed care of this PT upon arrival. EKG completes and handed to the provider, PT placed on residential monitor, Labs sent for processing
[2023-06-10 23:17] VITALS: BP 127/55; PULSE 77; RESP 18; O2SAT 98
--- NOTE | 2023-06-10 23:17 | PC.NURSE ---
this rn assisted pt tolerated well.
--- NOTE | 2023-06-10 23:58 | PC.NURSE ---
per provider verbal order, hold amlodapine due to pt blood pressure.
--- NOTE | 2023-06-11 00:12 | PC.NURSE ---
this RN contacted pt nephew to arrange ride for pt. pt nephew going to come waste picker pt.
[2023-06-11 00:19] VITALS: BP 142/58; PULSE 72; RESP 18; TEMP 36.5; O2SAT 98
== END 2023-06-11 01:00 | disposition home or self-care (01) ==
PROVIDERS: Emergency Provider Emergency Medicine; PCP Internal Medicine
DX: I48.91 Unspecified 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 (principal); I10 Essential (primary) hypertension; R06.02 Shortness of breath; Z79.899 Other long term (current) drug therapy; Z79.01 Long term (current) use of anticoagulants
CPT/HCPCS: 36415; 80053; 83880; 84484; 85025; 93005; 99285

== ENCOUNTER 2023-06-11 04:29 | Emergency (ER) | payer MEDICARE, SELFPAY ==
--- NOTE | 2023-06-11 | ECG_ITS ---
Test Reason : hypertension Blood Pressure : / mmHG Vent. Rate : 067 BPM Atrial Rate : 067 BPM P-R Int : 144 ms QRS Dur : 080 ms QT Int : 438 ms P-R-T Axes : 032 067 012 degrees QTc Int : 462 ms Sinus rhythm with Premature atrial complexes Nonspecific T wave abnormality Abnormal ECG When compared with ECG of 10-JUN-2023 21:06, No significant change was found Referred By: Generic ED Physician Electronically Signed By:CARLOS LEOS MD
[2023-06-11 04:41] VITALS: BP 174/62; BP 190/82; PULSE 60; PULSE 61; RESP 18; TEMP 36.4; O2SAT 97; O2SAT 98; BMI 20.3
[2023-06-11 05:39] VITALS: BP 161/88; PULSE 62; RESP 16; TEMP 36.5; O2SAT 96
[2023-06-11] MEDS: amLODIPine Besylate 10 MG TABLET PO (05:41)
--- NOTE | 2023-06-11 05:47 | MHC.EDTECH ---
Patient came in by EMS,changed into hospital attire and placed on the playground monitor, vitals taken and are elevated RN and MD are aware. EKG taken per order and signed by doctor.
[2023-06-11 05:49] VITALS: BP 191/73; PULSE 62; RESP 16; O2SAT 97
--- NOTE | 2023-06-11 05:49 | ED.GENADULT ---
HPI - General Adult General Chief complaint: General Medical Stated complaint: htn Time Seen by Provider: 06/11/23 05:16 Source: patient Mode of arrival: EMS Limitations: no limitations History of Present Illness HPI narrative: Patient comes to the emergency room complaining of high blood pressure. Patient was seen earlier today, for the same complaint. Patient states that she was asleep, states that she had a fluttering sensation in her heart, patient known to have AFib. The patient woke up, became very anxious about the sensation, check her blood pressure and it was greater than 200/100. Patient called EMS and came to the emergency room. Patient states that she has no chest pain or shortness of breath, no headache or visual changes. On arrival, blood pressure 174/62, patient asymptomatic Related Data Home Medications Medication Instructions Recorded Confirmed apixaban 2.5 mg tablet (Eliquis) 2.5 mg PO BID 04/04/21 09/17/22 alendronate 70 mg tablet 70 mg PO ESCOBAR@0900 04/12/22 09/17/22 multivitamin 1 tab PO DAILY 09/17/22 09/17/22 Previous Rx's Medication Instructions Recorded metoprolol succinate 100 mg 100 mg PO BEDTIME #0 tabs 09/20/22 tablet,extended release 24 hr amiodarone 200 mg tablet 200 mg PO DAILY #90 tabs 11/04/22 amlodipine 10 mg tablet 10 mg PO DAILY #30 tabs 06/11/23 Allergies Allergy/AdvReac Type Severity Reaction Status Date / Time morphine [MORPHINE] Allergy Severe VOMITING Verified 06/11/23 04:49 amiodarone Allergy Nausea and Verified 06/11/23 04:49 Vomiting Review of Systems Review of Systems: Constitutional : No Weight loss, No Fever, No Chills, No Night Sweats, No Fatigue, No Malaise ENT/Mouth : No Hearing loss, No Ear Pain, No Nasal Congestion, No Sinus Pain, No Hoarseness, No sore throat, No Rhinorrhea, No Swallowing Difficulty Eyes: No Eye Pain, No Swelling, No Redness, No Foreign Body, No Discharge, No Vision Changes Cardiovascular : Complaining of asymptomatic hypertension. No Chest Pain, No SOB, No Dyspnea on Exertion, No Orthopnea, No Edema, No Palpitations Respiratory : No Cough, No Sputum, No Wheezing, No Smoke Exposure, No Dyspnea Gastrointestinal : No Nausea, No Vomiting, No Diarrhea, No Constipation, No abdominal Pain, No Hematochezia, No Melena Genitourinary : no irregular bleeding, No Dysuria, No Urinary Frequency, No Hematuria, No Urinary Incontinence, No Urgency, No Flank Pain, No Urinary Flow Changes, No Hesitancy Musculoskeletal : No joint pain, No Myalgias, No Joint Swelling Skin : No Skin Lesions, No rash Neuro : No Weakness, No Numbness, No Paresthesias, No Loss of Consciousness, No Dizziness, No Headache Psych : No Anxiety/Panic, No Depression, No SI/HI/AH/VH, No Social Issues, Heme/Lymph: No Bruising, No Bleeding,No Lymphadenopathy Endocrine : No Polyuria, No Polydipsia, No Temperature Intolerance [facility] Past Medical History Medical History 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 PAF (paroxysmal 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) Endometrial cyst of ovary Surgical History History of total right hip arthroplasty H/O dilation and curettage S/P right oophorectomy Family History Family History Father Rectal cancer Stroke Mother CVD (cardiovascular disease) Heart failure Social History Social History Household Members: None Do you presently have visiting nurse or other home services: No Unable to assess alcohol history related to: Unknown Alcohol intake: never Patient Tobacco Use Status: Former Tobacco user Quit Date: 1985 Smoked in Last 30 Days: No Use of substances other than those prescribed or required for medical reasons: No Advance Directives: No Advance Directives Information Provided: No service: No Physical Exam ED Vital Signs: Vital Signs - 24 hr 06/11/23 04:41 06/11/23 05:39 06/11/23 05:49 Temperature 97.6 F 97.7 F Pulse Rate 60 62 62 Respiratory Rate 18 16 16 Blood Pressure 174/62 H 161/88 H 191/73 H Pulse Oximetry 98 96 97 Oxygen Delivery Method Room Air Room Air 06/11/23 06:11 06/11/23 06:15 Temperature Pulse Rate 67 69 Respiratory Rate 16 18 Blood Pressure 170/76 H 170/76 H Pulse Oximetry 97 Oxygen Delivery Method Room Air BMI result Body Mass Index 20.3 Const Other: Appearance: Alert. Oriented X3. No acute distress. Eyes: Pupils equal, round and reactive to light. ENT: Pharynx normal. Neck: Normal inspection. Neck supple. No lymph nodes noted. No crepitus CVS: Normal heart rate and rhythm. Pulses normal. Normal S1 and S2 Respiratory: No respiratory distress. Breath sounds normal. No Wheezing. No rales Abdomen: Soft and nontender. No rigidity. No distention. Skin: Skin warm and dry. Normal skin color. Normal skin turgor. Extremities: No lower extremity edema. No Lacerations. No Rash Neuro: Oriented X 3. No motor deficit. No sensory deficit. Moving all extremities. No slurred speech. CN 2 through 12 grossly intact Psych: calm, cooperative, normal affect Medications Administered Discontinued Medications Generic Name Dose Route Start Last Admin Trade Name Freq PRN Reason Stop Dose Admin Amlodipine Besylate 10 mg 06/11/23 04:51 06/11/23 05:41 Amlodipine Besylate 10 Mg Tablet PO 06/11/23 04:52 10 mg ONCE ONE Administration Protocol Losartan Potassium 50 mg 06/11/23 05:51 06/11/23 06:14 Losartan Potassium 50 Mg Tablet PO 06/11/23 05:52 50 mg ONCE ONE Administration Protocol Medical Decision Making Medical Decision Making [facility] Narrative: -the interpretation of EKG: Normal sinus rhythm, heart rate 67, no ST segment depression or elevation, nonspecific T-wave inversion in lead III, QTC 462 -patient came with a blood pressure in the 190s this 2nd ED visit. Patient was given 10 mg of amlodipine, blood pressure improved to 161/88, well within a few minutes, blood pressure but went back up to the 190s. Patient is asymptomatic, no chest pain or shortness of breath, no visual changes no headache. -patient was given a dose of losartan 50 mg. -patient's blood pressure improved to 130 systolic. However, I discussed with the patient that dropping the blood pressure too much is not appropriate either. Patient willing to start taking amlodipine 10 mg. Patient will follow-up with her primary care physician today. -patient remains asymptomatic -discussed with the patient that if she sees that her blood pressure is high, she should try to relax, as she does become very anxious. -I discussed with the patient the possibility of keeping her in the hospital to control blood pressure. Patient states that she would like to try to be discharged and try amlodipine and see how she does. Patient states that Roseanne is coming soon as she would not like to be in the hospital before during Thanks[place], since it is the 1st time that her [id number] will be preparing the Roseanne dinner Differential Diagnosis Differential Diagnoses: The differential diagnosis associated with the presentation includes (Hypertension) Admission/Observation Consideration of admission/observation: Escalation of care including admission/observation considered (Discussed possibly admitting the patient with Dr. Claros. However, we both agree that patient's blood pressure should probably stay below 180 system and slowly her medication can be titrated) Discharge Plan Discharge Clinical Impression: Hypertension Patient Disposition: Home, Self-Care Instructions: Hypertension (ED) Additional Instructions: Please follow-up with your primary care physician tomorrow. If you have any worsening or new symptoms, please return to the emergency room or call 911 Prescriptions: New amlodipine 10 mg tablet 10 mg PO DAILY Qty: 30 1RF No Action amiodarone 200 mg tablet 200 mg PO DAILY Qty: 90 3RF multivitamin Tablet 1 tab PO DAILY metoprolol succinate 100 mg Tablet Extended Release 24 Hr 100 mg PO BEDTIME Qty: 0 0RF Protocol: Hold for SBP/HR < HOLD for SBP < : 90 HOLD for HR < : 60 Eliquis 2.5 mg tablet 2.5 mg PO BID alendronate 70 mg tablet 70 mg PO ESCOBAR@0900
--- NOTE | 2023-06-11 06:08 | PC.NURSE ---
pt BIBA from home reporting high blood pressure with systolic in the 190s. pt reports being seen here at [facility] [place], [place] a few hours ago with similar blood pressure reading. pt reports she had woken up with a flutter feeling. pt a&ox4, respirations even and unlabored, pt denying pain, n/v/d. pt normal sinus on tele 60-64.
[2023-06-11 06:11] VITALS: BP 170/76; PULSE 67; RESP 16; O2SAT 97
[2023-06-11] MEDS: Losartan Potassium 50 MG TABLET PO (06:14)
[2023-06-11 06:15] VITALS: BP 170/76; PULSE 69; RESP 18
[2023-06-11 07:32] VITALS: BP 169/66; PULSE 75; RESP 18; O2SAT 98
== END 2023-06-11 08:12 | disposition home or self-care (01) ==
PROVIDERS: Emergency Provider Emergency Medicine; PCP Internal Medicine
DX: I10 Essential (primary) hypertension (principal); I48.0 Paroxysmal 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; Z87.891 Personal history of nicotine dependence; Z79.01 Long term (current) use of anticoagulants
CPT/HCPCS: 93005; 99283; 99284

== ENCOUNTER 2024-06-12 17:01 | Inpatient (IN) | payer MEDICARE, SELFPAY ==
--- NOTE | ~2024-06-12 | MR_ITS ---
EXAMINATION: MR ABDOMEN WITHOUT AND WITH CONTRAST CLINICAL INFORMATION: Intractable back pain. COMPARISON: CTA chest/abdomen/pelvis June 12, 2024 TECHNIQUE: MR abdomen was performed without and with use of 7 mL intravenous Gadavist gadolinium contrast. Postcontrast images are performed in multiphase dynamic sequences. Imaging was performed in 3 planes. FINDINGS: Motion artifact technically degrades image quality. LUNG BASES: Small to moderate bilateral pleural effusions. Cardiac enlargement. LIVER, GALLBLADDER, AND BILIARY TREE: The liver is normal in contour and signal. Scattered T2 hyperintense benign-appearing hepatic cysts, no imaging follow-up recommended. No focal hepatic lesion or biliary ductal dilatation is present. The gallbladder is unremarkable with no evidence of gallbladder wall thickening, or obvious pericholecystic inflammatory changes. PANCREAS: There is a subtle area of possible hypoenhancement in the head of the pancreas measuring 1.8 cm on image 42 of series 12. This corresponds to the recent CT. There is no ductal dilatation. The abnormality is not reproducible on all sequences most likely attributable motion artifact. There is some evidence of atrophy of the more distal downstream pancreas. No restricted diffusion. SPLEEN: Not enlarged. ADRENAL GLANDS: No adrenal mass. KIDNEYS AND URETERS: Benign-appearing T2 hyperintense bilateral renal cysts, no imaging follow-up recommended. No hydronephrosis. Nonspecific perinephric stranding. GASTROINTESTINAL TRACT: Marked fecal retention in the colon. LYMPH NODES: No bulky lymphadenopathy. VASCULAR: Normal caliber abdominal aorta. MR/MR abdomen wo/w con IMPRESSION: Limited study due to motion artifact. Subtle area of possible hypoenhancement in the head of the pancreas measuring 1.8 cm corresponding to the recent CT. Results There is no ductal dilatation or peripancreatic stranding. The abnormality is not reproducible on all sequences most likely related to motion artifact. There is some evidence of atrophy of the more distal downstream pancreas. There is concern for underlying pancreatic mass. Consider EUS/FNA. Electronically signed by: Rommel Fox MD 06/16/2024 01:34 PM EST
--- NOTE | ~2024-06-12 | CT_ITS ---
EXAMINATION: CTA CHEST, ABDOMEN AND PELVIS CLINICAL INFORMATION: History of AAA with chest and abdominal pain COMPARISON: No pertinent prior studies are available for comparison. TECHNIQUE: Multidetector volumetric imaging was performed from the thoracic inlet through the pubic symphysis both before as well as following administration of 80 cc of Omnipaque 350. Sagittal and coronal reformatted images were obtained on the technologist's workstation. Additional 2-D coronal and sagittal reformatted images and axial 3-D maximum intensity projection MIP images are generated on the CT workstation. This CT examination was performed using dose optimization techniques as appropriate, variously including the following: *Automated exposure control *Adjustment of mA and/or kV according to patient size (this includes techniques or standardized protocols for targeted exams where dose is matched to indication/reason for exam; i.e. extremities or head) *Use of iterative reconstruction technique DLP: 535 mGy-cm VASCULAR FINDINGS: Calcific atherosclerotic changes present in the thoracic aorta without evidence of aneurysm, dissection or intramural hematoma. Three-vessel branching pattern of the arch is present with widely patent great vessels. There is some mild narrowing of the subclavian just after its origin. The great vessels are otherwise widely patent. A tricuspid aortic valve is present with severe coronary artery calcium. Although not carried out for evaluation of the pulmonary arteries or pulmonary veins, no abnormalities are seen. No central or large segmental pulmonary emboli are present. Calcific atherosclerotic changes are present in the aorta and iliofemoral vessels. There is no evidence of an abdominal aortic aneurysm. The celiac, SMA and SHERIDAN are patent. There are single renal arteries present bilaterally which are widely patent. NONVASCULAR FINDINGS: CHEST: Lung: Severe cystic changes are present throughout the lungs likely related to emphysema but could also be entities such as lymphangioleiomyomatosis. In the right upper lobe there is a spiculated area with air spaces within it measuring 1.6 x 1.2 x 1.4 cm (5:124). There is a pleural-based 1 cm mass in the right lower lobe (5:219). There is another mildly spiculated area is seen in the right upper lobe medially measuring 2.6 x 1.1 x 11.4 cm (5:256). In the right lower lobe laterally there is a 1.1 x 0.8 x 0.8 cm subpleural nodule (5:307) . At the left lung base there is an area of atelectasis/consolidation seen with a smaller area at the right lung base (5:389 and 423). A number of other smaller nodules are seen. Mediastinum: The thyroid is enlarged and nodules are present with at least one left-sided nodule measuring 1.7 cm. No hilar or mediastinal lymphadenopathy. Coronary Artery Calcification: None visualized on this study. Pericardium/Pleura: Trace bilateral pleural effusions are present, left greater than right. Chest Wall/Axilla: Unremarkable ABDOMEN/PELVIS: Peritoneal Space: No significant free air or free fluid identified. Liver, Gallbladder, Biliary Tree: The liver is enlarged measuring 20 cm in cephalocaudad dimension with decreased attenuation as well as a slightly undulating border consistent with hepatic steatosis. Some small hypodensities are seen in the dependent tip of the right lobe of the liver which are indeterminate with the largest measuring just under 1 cm in size (for example 7:62, 80 and 81). No biliary ductal dilatation is present. The gallbladder is unremarkable with no evidence of radiopaque gallstones, gallbladder wall thickening, or obvious pericholecystic inflammatory changes. Pancreas: There is a subtle area of hypoattenuation in the head of the pancreas measuring 1.8 cm (7:67 and moreno image). No pancreatic ductal dilatation is seen. No pancreatic calcifications. Spleen: Unremarkable Adrenal Glands: Unremarkable Kidneys and Ureters: The kidneys are normal in size, shape, and attenuation. There is a tiny indeterminate hypodensity at the upper pole the left kidney measuring 7 mm. Follow-up ultrasound in 1 year is recommended. No hydronephrosis, hydroureter, or calculi seen. No perinephric stranding. Bladder: Unremarkable Gastrointestinal Tract: Severe diverticulosis is noted in the sigmoid without diverticulitis with scattered diverticula present elsewhere. No evidence of bowel obstruction. The appendix is not seen but there is no evidence of appendicitis. Abdominal Wall: No significant hernia is appreciated. Lymph Nodes: No lymphadenopathy. PELVIC VISCERA: Unremarkable OSSEUS STRUCTURES: A right hip prosthesis is present. A biconvex thoracolumbar scoliosis present. Degenerative changes are seen throughout the spine. There is grade 1 anterolisthesis of L4 upon L5 there is a compression fracture of the L1 vertebral body with over 75% loss in height. Sclerotic density in the vertebral body of T10. Rounded sclerotic densities in both iliac bones. CT/CT angio abdomen pelvis IMPRESSION: 1. No evidence of aortic dissection or aneurysm. 2. Severe cystic changes in the lungs with multiple spiculated masses. Differential diagnosis would include malignancy versus infection. 3. Enlarged fatty liver with indeterminate hypodensities. MRI could be performed for further evaluation. 4. Subtle hypodensity in the head of the pancreas. MRI could be performed for further evaluation. 5. Other incidental findings as described above including a 1.7 cm thyroid nodule, hepatomegaly with steatosis, indeterminate left renal lesion and severe diverticulosis without diverticulitis. 6. Compression fracture L1 with sclerotic densities in T10 and both iliac bones. Bone scan may be useful for further evaluation if malignancy is a consideration. Fleischner guidelines were followed. Electronically signed by: Chele Patten MD 06/12/2024 10:18 PM [facility]IN BRITT
[2024-06-12 17:19] VITALS: BP 140/88; BP 150/64; PULSE 146; PULSE 98; RESP 18; TEMP 36.8; O2SAT 94; BMI 21.4
--- NOTE | 2024-06-12 18:00 | ECG_ITS ---
Test Reason : ARRHYTHMIA Blood Pressure : / mmHG Vent. Rate : 143 BPM Atrial Rate : 000 BPM P-R Int : 000 ms QRS Dur : 082 ms QT Int : 302 ms P-R-T Axes : 000 076 -51 degrees QTc Int : 466 ms Atrial fibrillation with rapid ventricular response Anterior infarct (cited on or before 12-JUN-2024) Abnormal ECG When compared with ECG of 11-JUN-2023 05:42, Atrial fibrillation has replaced Sinus rhythm Vent. rate has increased BY 76 BPM Nonspecific T wave abnormality, worse in Inferior leads Nonspecific T wave abnormality now evident in Lateral leads Referred By: Bc Tavarez Electronically Signed By:YARED MONTERROSO MD
[2024-06-12] MEDS: Lidocaine 4 % Patch ADH..PATCH 1 PATCH TRANSDERMA (18:21)
--- NOTE | 2024-06-12 18:23 | PC.NURSE ---
patient a&ox3, iv inserted, labs drawn, electronic device monitor applied-pt afib on monitor-hx with afib on eliquist. pt medicated for lower back pain with lido patch, awaiting radiology for ct scan.
[2024-06-12 18:24] LABS: MANUAL DIFF FLAG NO
[2024-06-12 18:25] LABS: Basophils Percent Auto 0.3 % (0-2); Hematocrit 38.1 % (37.0-47.0); Hemoglobin 13.2 g/dl (12.0-16.0); Imm Gran Abs Auto 0.04 X10*3/uL (0.00-0.03); Imm Gran Pct Auto 0.3 % (0.0-0.4); Lymphocytes Absolute Auto 0.9 X10*3/uL (1.2-4.9); Lymphocytes Percent Auto 7.7 % (20-40); Mean Corpuscular HGB Conc 34.6 g/dl (31.0-35.0); Mean Corpuscular Hemoglobin 29.9 pg (27.0-33.0); Mean Corpuscular Volume 86.4 fL (80.0-98.0); Mean Platelet Volume 11.1 fL (9.4-12.3); Monocytes Absolute Auto 0.6 X10*3/uL (0.1-1.2); Neutrophils Absolute Auto 10.3 x10*3/uL (2.0-8.3); Neutrophils Percent Auto 86.7 % (45-73); Platelet Count 202 X10*3/uL (160-400); Red Blood Count 4.41 X10*6/uL (4.20-5.50); Red Cell Distribution Width 13.3 % (11.0-16.0); White Blood Count 11.9 X10*3/uL (4.8-10.8)
[2024-06-12 18:29] LABS: INTERNATIONAL NORM RATIO 1.5 (0.9-1.1); Prothrombin Time 17.7 SEC (10.9-12.4)
[2024-06-12 18:40] LABS: Alanine Aminotransferase 19 U/L (0-31); Albumin Level 4.3 g/dL (3.5-5.0); Alkaline Phosphatase 56 U/L (39-117); Anion Gap 17 (12-20); Aspartate Amino Transferase 30 U/L (5-31); Bilirubin Total 0.9 mg/dL (0.0-1.0); Blood Urea Nitrogen 19 mg/dL (9-16); Calcium 9.5 mg/dL (8.4-10.2); Carbon Dioxide 22 mmol/L (22-29); Chloride 100 mmol/L (96-108); Creatinine Clr Calc Pharmacy 58.6; Estimated Glomerular Filt Rate > 60; Glucose Random 149 mg/dL (60-115); Lipase 8 U/L (8-78); Potassium 3.8 mmol/L (3.3-5.1); Sodium 135 mmol/L (135-145); Total Protein 6.9 g/dL (6.5-8.0)
[2024-06-12 18:45] LABS: B Type Natriuretic Peptide 733 pg/mL (<100)
[2024-06-12 19:06] VITALS: BP 132/76; PULSE 149; RESP 22; TEMP 36.6; O2SAT 94
[2024-06-12 19:08] VITALS: BP 132/76; PULSE 149
[2024-06-12] MEDS: dilTIAZem HCL 50 MG/10 ML VIAL 20 MG IVPUSH (19:08)
--- NOTE | 2024-06-12 19:09 | ED_ITS ---
HPI - General Adult General Chief complaint: Back Pain/Injury Stated complaint: chronic low back pain Time Seen by Provider: 06/12/24 17:46 Source: patient, family (son), RN notes reviewed and old records reviewed Mode of arrival: EMS Limitations: no limitations History of Present Illness ED Provider: Corby HPI narrative: 88-year-old female past medical history significant for 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 on Eliquis, hypertension on amlodipine presents for evaluation of back pain. patient has chronic back pain. Her back pain radiates through to her abdomen today which is new this seemed to start over the last 2 days. She also reports decreased urination today denies any fevers, chills, nausea vomiting. The patient has been belching. Related Data Home Medications ?Medication ?Instructions ?Recorded ?Confirmed apixaban 2.5 mg tablet (Eliquis) 2.5 mg PO BID 04/04/21 09/17/22 alendronate 70 mg tablet 70 mg PO ESCOBAR@0900 04/12/22 09/17/22 multivitamin 1 tab PO DAILY 09/17/22 09/17/22 Previous Rx's ?Medication ?Instructions ?Recorded metoprolol succinate 100 mg 100 mg PO BEDTIME #0 tabs 09/20/22 tablet,extended release 24 hr amiodarone 200 mg tablet 200 mg PO DAILY #90 tabs 11/04/22 amlodipine 10 mg tablet 10 mg PO DAILY #30 tabs 06/11/23 Allergies Allergy/AdvReac Type Severity Reaction Status Date / Time morphine [MORPHINE] Allergy Severe VOMITING Verified 06/12/24 17:22 amiodarone Allergy Nausea and Verified 06/12/24 17:22 Vomiting Review of Systems 2 Constitutional: Constitutional: Denies body ache(s), Denies chills, Denies fever(s) and Denies frequent falls Eyes: Eyes: Denies blurry vision ENT: Denies vertigo and Denies dizziness Cardiovascular: Cardiovascular: Denies chest pain and Denies dyspnea Respiratory: Respiratory: Denies cough and Denies dyspnea Gastrointestinal: Gastrointestinal: Reports abdominal pain, Reports belching, Denies nausea and Denies vomiting Musculoskeletal: Musculoskeletal: Reports back pain Integumentary/Breasts: Skin/Breast: Denies rash Neurologic: Denies vertigo, Denies dizziness and Denies frequent falls Psychiatric: Psychiatric: Denies anxiety PMFSH Past Medical History Medical History 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 PAF (paroxysmal 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) Endometrial cyst of ovary Surgical History History of total right hip arthroplasty H/O dilation and curettage S/P right oophorectomy Family History Family History Father Rectal cancer Stroke Mother CVD (cardiovascular disease) Heart failure Social History Social History Household Members: None Do you presently have visiting nurse or other home services: No Unable to assess alcohol history related to: Unknown Alcohol intake: never Patient Tobacco Use Status: Former Tobacco user Smoked in Last 30 Days: Yes Use of substances other than those prescribed or required for medical reasons: No Advance Directives: No Advance Directives Information Provided: No Do you have a plan to hurt others: No Plan service: No Physical Exam ED Vital Signs: Vital Signs - 24 hr 06/12/24 17:19 06/12/24 19:06 06/12/24 19:08 Temperature 98.3 F 97.9 F Pulse Rate 146 H 149 H 149 H Respiratory Rate 18 22 H Blood Pressure 150/64 H 132/76 132/76 Pulse Oximetry 94 94 Oxygen Delivery Method Room Air Room Air Oxygen Flow Rate 06/12/24 19:31 06/12/24 21:13 06/12/24 22:04 Temperature 98.3 F Pulse Rate 94 155 H 133 H Respiratory Rate 17 19 Blood Pressure 145/68 H 142/70 H 119/66 Pulse Oximetry 95 93 Oxygen Delivery Method Room Air Nasal Cannula Oxygen Flow Rate 2 BMI result Body Mass Index 21.4 Const General: healthy appearing, comfortable, no acute distress, alert and awake Nutritional Appearance: well nourished Orientation/consciousness: patient oriented x3 HENMT Head: Yes normocephalic and Yes atraumatic Eyes Eyelids: Yes eyelids normal Conjunctivae: conjunctivae normal Sclerae: sclerae normal Corneas: corneas normal Pupils: Equal, round and reactive pupils present EOM: EOMs intact bilaterally Neck Neck: Yes full ROM Resp Effort & Inspection: normal respiratory effort, able to speak in complete sentences, no audible wheezes and not labored Auscultation: clear to auscultation bilaterally Cardio Rate: tachycardic Rhythm: abnormal rhythm irregularly irregular GI Inspection: No distended Palpation (GI): Soft to palpation, not firm, Tenderness to palpation present (GI) in the LLQ, in the RLQ and suprapubicly, no guarding and not rigid Back/Spine/Pelvis Other: Minimal tenderness across the lumbar spine and paraspinous region. No step- offs or deformities. Skin General skin exam: elasticity normal Neuro General: patient oriented x3 Cranial nerves: Yes CN's II-XII intact bilaterally, Yes Equal, round and reactive pupils present and Yes Bilaterally intact EOM present Cognition (Neuro): normal cognition Extrem Other: Moving all extremities well without any obvious deformities Course Course Course Narrative: Dora Berger PA-C have accepted care of the patient and signed out pending imaging and admission patient is 88 she has a history of AFib, she is chronically RVR, she is anticoagulated, she is not rate controlled, she is followed by Dr. Benji hill. She currently is on a diltiazem drip, her rate is improving, she is pending angiogram of abdomen and chest. CT angio chest and abdomen: CT/CT angio chest aorta IMPRESSION: 1. No evidence of aortic dissection or aneurysm. 2. Severe cystic changes in the lungs with multiple spiculated masses. Differential diagnosis would include malignancy versus infection. 3. Enlarged fatty liver with indeterminate hypodensities. MRI could be performed for further evaluation. 4. Subtle hypodensity in the head of the pancreas. MRI could be performed for further evaluation. 5. Other incidental findings as described above including a 1.7 cm thyroid nodule, hepatomegaly with steatosis, indeterminate left renal lesion and severe diverticulosis without diverticulitis. 6. Compression fracture L1 with sclerotic densities in T10 and both iliac bones. Bone scan may be useful for further evaluation if malignancy is a consideration. Fleischner guidelines were followed. Electronically signed by: Chele Patten MD 06/12/2024 10:18 PM EDIN Medications Administered Generic Name Dose Route Start Last Admin Trade Name Freq PRN Reason Stop Dose Admin Diltiazem HCl 125 mg/ Sodium 125 mls @ 0 mls/hr 06/12/24:00 06/12/24 21:40 Chloride IVCONT 15 mg/hr .Q0M PHILLIP 15 mls/hr Titration Protocol Per Protocol Discontinued Medications Generic Name Dose Route Start Last Admin Trade Name Vickie PRN Reason Stop Dose Admin Diltiazem HCl 20 mg 06/12/24 18:49 06/12/24 19:08 Diltiazem Hcl 50 Mg/10 Ml Vial IVPUSH 06/12/24 18:50 20 mg STAT STA Administration Iohexol 100 ml 06/12/24 20:23 06/12/24 20:23 Iohexol 350 Mg/Ml 100 Ml Infus..Btl IV 06/12/24 20:24 80 ml ONCE ONE Administration Lidocaine 1 patch 06/12/24 18:00 06/12/24 18:21 Lidocaine 4 % Patch Adh..Patch TRANSDERMA 06/12/24 18:01 1 patch ONCE ONE Administration Protocol Medical Decision Making Medical Decision Making [facility] Narrative: 88-year-old female with past medical history as documented above presents for evaluation of abdominal pain and back pain. She was found to be in rapid AFib on EKG, she is initially unwilling to try any medications to rate control her as she has had a bad reaction to amiodarone and metoprolol in the past. The patient did ultimately agree to Cardizem trial. as far as the patient's abdominal pain and back pain, I did a bladder scan which shows 120 cc of urine in the bladder. We will get a CT scan of the chest and abdomen for aorta protocol as the patient does have a history Differential Diagnosis Differential Diagnoses: The differential diagnosis associated with the presentation includes Back pain Arthritis Constipation AAA Lab Data [facility] Lab Attestation statement: I reviewed the patient's lab results. the patient has a mild leukocytosis to 11.9, there is also a left shift. Chemistries without significant abnormality. The urinalysis shows proteinuria and trace esterase but no white cells, no bacteria 06/12/24 18:16 06/12/24 18:16 Labs: Lab Results 06/12/24 Range/Units 18:16 WBC 11.9 H (4.8-10.8) X10*3/uL RBC 4.41 (4.20-5.50) X10*6/uL Hgb 13.2 (12.0-16.0) g/dl Hct 38.1 (37.0-47.0) % MCV 86.4 (80.0-98.0) fL MCH 29.9 (27.0-33.0) pg MCHC 34.6 (31.0-35.0) g/dl RDW 13.3 (11.0-16.0) % Plt Count 202 (160-400) X10*3/uL MPV 11.1 (9.4-12.3) fL Immature Gran % (Auto) 0.3 (0.0-0.4) % Neut % (Auto) 86.7 H (45-73) % Lymph % (Auto) 7.7 L (20-40) % Reagan % (Auto) 5.0 (2-11) % Eos % (Auto) 0.0 (0-4) % Baso % (Auto) 0.3 (0-2) % Lymph # (Auto) 0.9 L (1.2-4.9) X10*3/uL Reagan # (Auto) 0.6 (0.1-1.2) X10*3/uL Eos # (Auto) 0.0 (0.0-0.4) X10*3/uL Baso # (Auto) 0.0 (0.0-0.2) X10*3/uL Abs Immat Gran (auto) 0.04 H (0.00-0.03) X10*3/uL Absolute Neuts (auto) 10.3 H (2.0-8.3) x10*3/uL Absolute Nucleated RBC 0.000 (0.0-0.012) X10*3/uL Nucleated RBC % (auto) 0.0 (0.0-0.2) /100WBC PT 17.7 H (10.9-12.4) SEC INR 1.5 H (0.9-1.1) Sodium 135 (135-145) mmol/L Potassium 3.8 (3.3-5.1) mmol/L Chloride 100 (96-108) mmol/L Carbon Dioxide 22 (22-29) mmol/L Anion Gap 17 (12-20) BUN 19 H (9-16) mg/dL Creatinine 0.73 (0.5-1.4) mg/dL Estim Creat Clear Calc 58.6 Estimated GFR > 60 Random Glucose 149 H (60-115) mg/dL Calcium 9.5 (8.4-10.2) mg/dL Total Bilirubin 0.9 (0.0-1.0) mg/dL AST 30 (5-31) U/L ALT 19 (0-31) U/L Alkaline Phosphatase 56 (39-117) U/L Troponin I High Sens 4.0 (<3.5-17.0) ng/L B-Natriuretic Peptide 733 H (<100) pg/mL Total Protein 6.9 (6.5-8.0) g/dL Albumin 4.3 (3.5-5.0) g/dL Lipase 8 (8-78) U/L Independent Interpretation I performed an independent interpretation of an: EKG Interpretation: rapid AFib with a rate of 143 beats minute. Discharge Plan Discharge Clinical Impression: Back pain, Atrial fibrillation with rapid ventricular response Patient Disposition: Admitted As Inpatient Prescriptions: No Action amiodarone 200 mg tablet 200 mg PO DAILY Qty: 90 3RF multivitamin Tablet 1 tab PO DAILY metoprolol succinate 100 mg Tablet Extended Release 24 Hr 100 mg PO BEDTIME Qty: 0 0RF Protocol: Hold for SBP/HR < HOLD for SBP < : 90 HOLD for HR < : 60 amlodipine 10 mg tablet 10 mg PO DAILY Qty: 30 1RF Eliquis 2.5 mg tablet 2.5 mg PO BID alendronate 70 mg tablet 70 mg PO ESCOBAR@0900 Print Language: Ukrainian
[2024-06-12 19:31] VITALS: BP 145/68; PULSE 94; RESP 17; O2SAT 95
[2024-06-12] MEDS: iohexoL 350 MG/ML 100 ML INFUS..BTL IV (20:23)
[2024-06-12 21:13] VITALS: BP 142/70; PULSE 155
[2024-06-12] MEDS: dilTIAZem HCL 125 MG in 0.9 % Sodium Chloride 100 ML 10 MG IVCONT (21:13)
--- NOTE | 2024-06-12 21:26 | PC.NURSE ---
Pt aox4 resting at the bedside. Breaths are even and regular and unlabored. O2 sat fluctuating between 84-88%. Pt denies sob. Placed on 2L NC with O2 improvement to 92%. A-fib on monitor with HR fluctuating between 140-160 bpm. Dilt drip started at 10mg/hr. Pt tolerating well. Pt made aware of plan of care.
--- NOTE | 2024-06-12 21:39 | PC.NURSE ---
Pt continues to be in a-fib with HR 130-150 bpm. Dilt drip increased to 15mg/hr as per protocol. PT tolerating well.
[2024-06-12 22:04] VITALS: BP 119/66; PULSE 133; RESP 19; TEMP 36.8; O2SAT 93
[2024-06-12] MEDS: Acetaminophen 325 MG TABLET 650 MG PO (22:27)
--- NOTE | 2024-06-12 22:44 | P.HPHOSP_ITS ---
History of Present Illness Date of Service: 06/12/24 Chief Complaint: Back pain This is a 88-year-old female with pertinent history of paroxysmal 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 on Eliquis, hypertension, osteoporosis who presents to the emergency department for evaluation of back pain. Patient has had chronic back pain but states for the last 2 days the back pain is more intense, constant, and with intermittent radiation to the abdomen. She is unable to tolerate the back and abdominal pain which prompted ER visit. No chest pain. Endorses palpitations. No fever, chills, dyspnea. Denies nausea, vomiting, changes in bowel habits. In the emergency department, patient was found to be in AFib with RVR and initiated on diltiazem drip. Imaging with cystic changes in the lungs with multiple spiculated masses, hypodensity in the head of pancreas, hypodensity in the liver, sclerotic density in T10 and iliac bones. 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 PAF (paroxysmal 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) Endometrial cyst of ovary Family History Father Rectal cancer Stroke Mother CVD (cardiovascular disease) Heart failure Surgical History History of total right hip arthroplasty H/O dilation and curettage S/P right oophorectomy Social History Household Members: None Do you presently have visiting nurse or other home services: No Unable to assess alcohol history related to: Unknown Alcohol intake: never Patient Tobacco Use Status: Former Tobacco user Smoked in Last 30 Days: Yes Use of substances other than those prescribed or required for medical reasons: No Advance Directives: No Advance Directives Information Provided: No Do you have a plan to hurt others: No Plan service: No Meds Allergies Allergy/AdvReac Type Severity Reaction Status Date / Time morphine [MORPHINE] Allergy Severe VOMITING Verified 06/12/24 17:22 amiodarone Allergy Nausea and Verified 06/12/24 17:22 Vomiting Active Medications: Current Medications Acetaminophen (Acetaminophen 325 Mg Tablet) 650 mg PO Q6H PRN PRN Reason: Pain, Mild (Pain Scale 1-3), fever or headache Calcium Carbonate (Calcium Carbonate 750 Mg Tab.Chew) 750 mg PO Q4H PRN PRN Reason: Heartburn Diltiazem HCl 125 mg/ Sodium (Chloride) 125 mls @ 0 mls/hr IVCONT .Q0M [facility]; Protocol Last Titration: 06/12/24 21:40 Dose: 15 mg/hr, 15 mls/hr Magnesium Hydroxide (Milk Of Magnesia 30 Ml Oral.Susp) 30 ml PO DAILY PRN PRN Reason: Constipation Melatonin (Melatonin 3 Mg Tablet) 6 mg PO BEDTIME PRN PRN Reason: Insomnia Morphine Sulfate (Morphine Sulfate 4 Mg/Ml Cartridge) 2 mg IVPUSH Q4H PRN; Protocol PRN Reason: Pain, Severe (Pain Scale 7-10) Ondansetron HCl (Ondansetron Hcl 4 Mg/2 Ml Vial) 4 mg IVPUSH Q8H PRN PRN Reason: Nausea and Vomiting Sodium Chloride (0.9 % Sodium Chloride Flush 3 Ml Syringe) [facility] ?Medication ?Instructions ?Recorded ?Confirmed ?Last Taken ?Type apixaban 2.5 mg tablet (Eliquis) 2.5 mg PO BID 04/04/21 09/17/22 09/15/22 History alendronate 70 mg tablet 70 mg PO ESCOBAR@0900 04/12/22 09/17/22 09/17/22 09:00 History multivitamin 1 tab PO DAILY 09/17/22 09/17/22 09/15/22 History Physical Exam 2 Vital Signs and Narrative: Vital Signs: Last Vital Signs Temp 98.3 F 06/12/24 22:04 Pulse 133 H 06/12/24 22:04 Resp 19 06/12/24 22:04 BP 119/66 06/12/24 22:04 Pulse Ox 93 06/12/24 22:04 O2 Del Method Nasal Cannula 06/12/24 22:04 O2 Flow Rate 2 06/12/24 22:04 BMI result Body Mass Index 21.4 Elderly female lying in bed in no distress Neck supple, no JVD Irregularly irregular, S1-S2 heard Regular breath sounds bilaterally, no wheezing or crackles appreciated Abdomen soft nontender, no guarding, no rigidity Patient is awake, alert and oriented x3 ; no focal motor deficit Psych: Normal mood No pedal edema Results Labs 06/12/24 18:16 06/12/24 18:16 Labs: Laboratory Results - last 24 hr 06/12/24 18:16 MCV 86.4 MCH 29.9 MCHC 34.6 RDW 13.3 Plt Count 202 MPV 11.1 Immature Gran % (Auto) 0.3 Neut % (Auto) 86.7 H Lymph % (Auto) 7.7 L [place] % (Auto) 5.0 Eos % (Auto) 0.0 Baso % (Auto) 0.3 Lymph # (Auto) 0.9 L Clayton # (Auto) 0.6 Eos # (Auto) 0.0 Baso # (Auto) 0.0 Abs Immat Gran (auto) 0.04 H Absolute Neuts (auto) 10.3 H Absolute Nucleated RBC 0.000 Nucleated RBC % (auto) 0.0 PT 17.7 H INR 1.5 H Anion Gap 17 Estim Creat Clear Calc 58.6 Estimated GFR > 60 Random Glucose 149 H Calcium 9.5 Total Bilirubin 0.9 AST 30 ALT 19 Alkaline Phosphatase 56 Troponin I High Sens 4.0 B-Natriuretic Peptide 733 H Total Protein 6.9 Albumin 4.3 Lipase 8 Imaging Radiologist's Impressions: Impressions Abdomen/Pelvis CTA 06/12/24 20:24 IMPRESSION: 1. No evidence of aortic dissection or aneurysm. 2. Severe cystic changes in the lungs with multiple spiculated masses. Differential diagnosis would include malignancy versus infection. 3. Enlarged fatty liver with indeterminate hypodensities. MRI could be performed for further evaluation. 4. Subtle hypodensity in the head of the pancreas. MRI could be performed for further evaluation. 5. Other incidental findings as described above including a 1.7 cm thyroid nodule, hepatomegaly with steatosis, indeterminate left renal lesion and severe diverticulosis without diverticulitis. 6. Compression fracture L1 with sclerotic densities in T10 and both iliac bones. Bone scan may be useful for further evaluation if malignancy is a consideration. Fleischner guidelines were followed. Electronically signed by: Chele Patten MD 06/12/2024 10:18 PM EST RP Chest CTA 06/12/24 20:24 IMPRESSION: 1. No evidence of aortic dissection or aneurysm. 2. Severe cystic changes in the lungs with multiple spiculated masses. Differential diagnosis would include malignancy versus infection. 3. Enlarged fatty liver with indeterminate hypodensities. MRI could be performed for further evaluation. 4. Subtle hypodensity in the head of the pancreas. MRI could be performed for further evaluation. 5. Other incidental findings as described above including a 1.7 cm thyroid nodule, hepatomegaly with steatosis, indeterminate left renal lesion and severe diverticulosis without diverticulitis. 6. Compression fracture L1 with sclerotic densities in T10 and both iliac bones. Bone scan may be useful for further evaluation if malignancy is a consideration. Fleischner guidelines were followed. Electronically signed by: Chele Patten MD 06/12/2024 10:18 PM EST RP Assessment and Plan (1) Atrial fibrillation with rapid ventricular response: Status: Acute Plan This is a 88-year-old female with pertinent history of paroxysmal 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 on Eliquis, hypertension, osteoporosis who presents to the emergency department for evaluation of back pain. #. AFib with RVR: Will admit patient with cardiac monitoring. Obtaining TSH. Initiated on diltiazem drip in the ER. Consulted Cardiology, appreciate assistance #. Back pain, intractable: Imaging with L1 compression fracture with sclerosis densities, hypodensity in the head of pancreas, fatty liver with hypodensity and cystic changes in the lungs. Obtaining MRI to delineate underlying anatomy. IV opioids p.r.n. for intractable back pain #. Elevated BNP: Physiologic in elderly female #. Hypertension: On amlodipine #. Osteoporosis: On alendronate Med rec pending DVT prophylaxis: Eliquis DNR/DNI. Discussed with patient at bedside Admit as inpatient and will require two night minimum hospital stay for close monitoring of heart rate, IV diltiazem drip, IV opioids (as above), which is not possible in a lesser acute setting. Specialist consult pending Quality Stroke Does the patient have a stroke diagnosis?: No VTE Prior VTE?: No VTE Risk Level:: Medical - moderate - high VTE Device Contraindication: Treatment Not Indicated VTE Drug Contraindication: N/A - Med Ordered
[2024-06-12 23:33] LABS: Appearance Urine Clear; Color Urine Yellow; Glucose Urine UA Negative (Negative); Leukocyte Esterase Urine Negative (Negative); Nitrite Urine Negative (Negative); PH 5.5 (5.0-9.0); Specific Gravity - Urine >= 1.030 (1.005-1.025); Urine Blood Negative (Negative); Urine Ketones 15 mg/dL (Negative); Urine Protein Trace mg/dL (Neg-Trace)
[2024-06-12 23:50] LABS: Bacteria Urine None Seen (None Seen); Hyaline Casts Urine 0-2 /LPF (0-2); RBC Urine 0-2 /HPF (0-2); Squamous Epithelial Cell Urine 0-2 /HPF (0-2); WBC Urine 0-5 /HPF (0-5)
[2024-06-13] VITALS (8 sets, daily range): BP systolic 114–138; BP diastolic 61–86; PULSE 107–139; RESP 16–20; TEMP 36.6–37.2; O2SAT 92–95
[2024-06-13] MEDS: dilTIAZem HCL 125 MG in 0.9 % Sodium Chloride 100 ML 10 MG IVCONT ×2 (06:04→18:37)
[2024-06-13 07:29] LABS: Hematocrit 39.9 % (37.0-47.0); Hemoglobin 13.7 g/dl (12.0-16.0); Mean Corpuscular HGB Conc 34.3 g/dl (31.0-35.0); Mean Corpuscular Hemoglobin 29.9 pg (27.0-33.0); Mean Corpuscular Volume 87.1 fL (80.0-98.0); Mean Platelet Volume 10.7 fL (9.4-12.3); Platelet Count 185 X10*3/uL (160-400); Red Blood Count 4.58 X10*6/uL (4.20-5.50); Red Cell Distribution Width 13.2 % (11.0-16.0); White Blood Count 10.2 X10*3/uL (4.8-10.8)
[2024-06-13 07:57] LABS: Anion Gap 15 (12-20); Blood Urea Nitrogen 14 mg/dL (9-16); Calcium 9.3 mg/dL (8.4-10.2); Carbon Dioxide 21 mmol/L (22-29); Chloride 104 mmol/L (96-108); Creatinine Clr Calc Pharmacy 71.2; Estimated Glomerular Filt Rate > 60; Glucose Random 120 mg/dL (60-115); Potassium 3.6 mmol/L (3.3-5.1); Sodium 136 mmol/L (135-145)
--- NOTE | 2024-06-13 08:42 | PHA.MEDREC ---
Pharmacy Consult ? Medication Reconciliation Pharmacy has completed the medication reconciliation. Spoke to patient to confirm medication list. Patient said she is not taking amiodarone nor metoprolol due to them making her sick. Last dose of her medications was yesterday 06/12/24.
--- NOTE | 2024-06-13 09:32 | MHC.CM.PN ---
IMM 06/13/24, EMR REVIEWED, PT W/AFIB W/RVR, COMPRESSION FX L1 AND RENAL LESION, CM MET W/PT WHO REPORTS SHE LIVES ALONE, DOES WELL, HAS A CANE AND FWW SHE USES, PT HAS NO SERVICES HOWEVER HAS LOTS OF HELP FROM SON/NEPHEW AND NEIGHBORS, PT REPORTS HER GOAL IS HOME W/NEW [facility] FOR SN/PT, PT HAS BEEN TO [facility] HOWEVER DOES PREFER HOME. PCP/HCP ON FILE VERIFIED.
[2024-06-13] MEDS: Apixaban 2.5 MG TABLET PO (09:53)
[2024-06-13] MEDS: Digoxin 0.5 MG/2 ML AMPUL 0.125 MG IVPUSH ×3 (09:53→20:32)
[2024-06-13] MEDS: Multivitamin TABLET 1 TAB PO (09:53)
--- NOTE | 2024-06-13 10:37 | P.PNIM_ITS ---
Subjective Subjective Date of Service: 06/14/24 Interval History: f/u on afib with rvr and back pain back pain likely d/t compression frature is better Physical Exam 2 Vital Signs: Vital Signs: Last Vital Signs Temp 98.1 F 06/13/24 07:30 Pulse 139 H 06/13/24 07:30 Resp 18 06/13/24 07:30 BP 138/86 06/13/24 07:30 Pulse Ox 94 06/13/24 07:30 O2 Del Method Nasal Cannula 06/13/24 07:30 O2 Flow Rate 1 06/13/24 07:30 BMI result Body Mass Index 21.4 General: AO X 3, no acute distress Resp: CTA bilateral CVS: S1,S2, iregular iregular GI: +BS, NT, no distention Skin: No rash Neuro: motor grossly intact Psych: appropriate affect Objective Data Active Medications Acetaminophen (Acetaminophen 325 Mg Tablet) 650 mg PO Q6H PRN PRN Reason: Pain, Mild (Pain Scale 1-3), fever or headache Apixaban (Apixaban 2.5 Mg Tablet) 2.5 mg PO BID [facility] Last Admin: 06/13/24 09:53 Dose: 2.5 mg Documented By: ROBERTA Calcium Carbonate (Calcium Carbonate 750 Mg Tab.Chew) 750 mg PO Q4H PRN PRN Reason: Heartburn Digoxin (Digoxin 0.5 Mg/2 Ml Ampul) 0.125 mg IVPUSH Q6H [facility]; Protocol Stop: 06/13/24 21:46 Last Admin: 06/13/24 09:53 Dose: 0.125 mg Documented By: ROBERTA Hydromorphone HCl (Hydromorphone Hcl 0.5 Mg/0.5 Ml Syringe) 0.5 mg IVPUSH Q4H PRN; Protocol PRN Reason: Pain, Severe (Pain Scale 7-10) Diltiazem HCl 125 mg/ Sodium (Chloride) 125 mls @ 0 mls/hr IVCONT .Q0M [facility]; Protocol Last Admin: 06/13/24 06:04 Dose: 10 mg/hr, 10 mls/hr Documented By: YASMIN Magnesium Hydroxide (Milk Of Magnesia 30 Ml Oral.Susp) 30 ml PO DAILY PRN PRN Reason: Constipation Melatonin (Melatonin 3 Mg Tablet) 6 mg PO BEDTIME PRN PRN Reason: Insomnia Multivitamins/Vitamin C (Multivitamin Tablet) 1 tab PO DAILY [facility] Last Admin: 06/13/24 09:53 Dose: 1 tab Documented By: ROBERTA Ondansetron HCl (Ondansetron Hcl 4 Mg/2 Ml Vial) 4 mg IVPUSH Q8H PRN PRN Reason: Nausea and Vomiting Sodium Chloride (0.9 % Sodium Chloride Flush 3 Ml Syringe) 3 ml IVFLUSH QSHIFT [facility] Last Admin: 06/13/24 07:49 Dose: Not Given Documented By: ROBERTA Non-Admin Reason: IV Running Labs 06/13/24 07:07 06/13/24 07:07 Labs: Laboratory Results - last 24 hr 06/12/24 06/12/24 06/13/24 18:16 23:26 07:07 MCV 86.4 87.1 MCH 29.9 29.9 MCHC 34.6 34.3 RDW 13.3 13.2 Plt Count 202 185 MPV 11.1 10.7 Immature Gran % (Auto) 0.3 Neut % (Auto) 86.7 H Lymph % (Auto) 7.7 L Hughes % (Auto) 5.0 Eos % (Auto) 0.0 Baso % (Auto) 0.3 Lymph # (Auto) 0.9 L Hughes # (Auto) 0.6 Eos # (Auto) 0.0 Baso # (Auto) 0.0 Abs Immat Gran (auto) 0.04 H Absolute Neuts (auto) 10.3 H Absolute Nucleated RBC 0.000 0.000 Nucleated RBC % (auto) 0.0 0.0 PT 17.7 H INR 1.5 H Anion Gap 17 15 Estim Creat Clear Calc 58.6 71.2 Estimated GFR > 60 > 60 Random Glucose 149 H 120 H Calcium 9.5 9.3 Total Bilirubin 0.9 AST 30 ALT 19 Alkaline Phosphatase 56 Troponin I High Sens 4.0 B-Natriuretic Peptide 733 H Total Protein 6.9 Albumin 4.3 Lipase 8 TSH 0.60 Urine Color Yellow Urine Appearance Clear Urine pH 5.5 Ur Specific [place] >= 1.030 H Urine Protein Trace Urine Glucose (UA) Negative Urine Ketones 15 Urine Blood Negative Urine Nitrite Negative Ur Leukocyte Esterase Negative Urine RBC 0-2 Urine WBC 0-5 Ur Squamous Epith Cells 0-2 Urine Bacteria None Seen Hyaline Casts 0-2 Assessment and Plan (1) PAF (paroxysmal 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): Status: Acute (2) Atrial fibrillation with rapid ventricular response: Status: Acute (3) ST segment depression: Status: Acute Plan 88/F with history of paroxysmal 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 (PAF) on Eliquis, HTN, osteoporosis AFib with RVR, persistent tachycardia continue cardizem gtt, HR target of < 100 add iv dig loading cardiology consult eliquis for stroke prevention Back pain likely from compression fracture Imaging with L1 compression fracture--pain hypodensity in the head of pancreas, fatty liver with hypodensity and cystic changes in the lungs. MRI to delineate underlying anatomy. IV opioids p.r.n. for intractable back pain Elevated BNP: Physiologic in elderly female Hypertension: On amlodipine Osteoporosis: On alendronate DVT prophylaxis: Eliquis DNR/DNI. Discussed with patient at bedside Quality Stroke Does the patient have a stroke diagnosis?: No VTE Prior VTE?: No VTE Risk Level:: Medical - moderate - high VTE Device Contraindication: Treatment Not Indicated VTE Drug Contraindication: N/A - Med Ordered
--- NOTE | 2024-06-13 12:55 | P.CONCA_ITS ---
History of Present Illness History of Present Illness Date of Service: 06/13/24 Requesting physician: Dev [facility] Consult reason: 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 Chief complaint: Back pain Narrative: I was consulted to see Kera in cardiology consultation today for 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 rapid ventricular response. Patient is 88-year-old female with prior history of paroxysmal 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, hypertension. Presented to the hospital with intractable back pain noted to have 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 rapid ventricular response she was difficult control. Currently on IV Cardizem drip at 5 mg an hour. Patient is feeling that heart rate is going rapid although she is not having any chest pain or shortness of breath. Blood pressure is stable. On chronic dose of apixaban 2.5 mg b.i.d. which is inadequate for her given her body weight and creatinine. She says her pain is better but not completely controlled. She wishes to go home. She is scheduled to undergo an MRI for further evaluation. Review of Systems 2 Constitutional: Constitutional: Reports no additional constitutional complaints Cardiovascular: Cardiovascular: Denies chest pain, Reports rapid heart rate, Denies leg edema, Denies lightheadedness, Denies Loss of Consciousness, Reports palpitations and Denies dyspnea Respiratory: Respiratory: Reports no additional respiratory complaints and Denies dyspnea Gastrointestinal: Gastrointestinal: Reports no additional gastrointestinal complaints Musculoskeletal: Musculoskeletal: Reports back pain Neurologic: Reports system reviewed and no additional complaints, except as documented Psychiatric: Psychiatric: Reports no additional psychiatric complaints Endocrine: Endocrine: Reports no additional endocrine complaints and Reports palpitations PMFSH Past Medical History Medical History Hx of nursing home use of blood thinners PAF (paroxysmal 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) Endometrial cyst of ovary Family History Family History Father Rectal cancer Stroke Mother CVD (cardiovascular disease) Heart failure Surgical History Surgical History History of total right hip arthroplasty H/O dilation and curettage S/P right oophorectomy Social History Social History Household Members: None Housing: House Do you presently have visiting nurse or other home services: No Unable to assess alcohol history related to: Unknown Alcohol intake: never Patient Tobacco Use Status: Former Tobacco user service: No Meds Allergies Allergy/AdvReac Type Severity Reaction Status Date / Time morphine [MORPHINE] Allergy Severe VOMITING Verified 06/12/24 17:22 amiodarone Allergy Nausea and Verified 06/12/24 17:22 Vomiting metoprolol Allergy Nausea and Verified 06/13/24 03:08 Vomiting Active Medications: Current Medications Acetaminophen (Acetaminophen 325 Mg Tablet) 650 mg PO Q6H PRN PRN Reason: Pain, Mild (Pain Scale 1-3), fever or headache Apixaban (Apixaban 5 Mg Tablet) 5 mg PO BID [facility] Calcium Carbonate (Calcium Carbonate 750 Mg Tab.Chew) 750 mg PO Q4H PRN PRN Reason: Heartburn Digoxin (Digoxin 0.5 Mg/2 Ml Ampul) 0.125 mg IVPUSH Q6H [facility]; Protocol Stop: 06/13/24 21:46 Last Admin: 06/13/24 09:53 Dose: 0.125 mg Hydromorphone HCl (Hydromorphone Hcl 0.5 Mg/0.5 Ml Syringe) 0.5 mg IVPUSH Q4H PRN; Protocol PRN Reason: Pain, Severe (Pain Scale 7-10) Diltiazem HCl 125 mg/ Sodium (Chloride) 125 mls @ 0 mls/hr IVCONT .Q0M [facility]; Protocol Last Admin: 06/13/24 06:04 Dose: 10 mg/hr, 10 mls/hr Magnesium Hydroxide (Milk Of Magnesia 30 Ml Oral.Susp) 30 ml PO DAILY PRN PRN Reason: Constipation Melatonin (Melatonin 3 Mg Tablet) 6 mg PO BEDTIME PRN PRN Reason: Insomnia Multivitamins/Vitamin C (Multivitamin Tablet) 1 tab PO DAILY [facility] Last Admin: 06/13/24 09:53 Dose: 1 tab Ondansetron HCl (Ondansetron Hcl 4 Mg/2 Ml Vial) 4 mg IVPUSH Q8H PRN PRN Reason: Nausea and Vomiting Sodium Chloride (0.9 % Sodium Chloride Flush 3 Ml Syringe) 3 ml IVFLUSH QSHIFT [facility] Last Admin: 06/13/24 07:49 Dose: Not Given Home Medications ?Medication ?Instructions ?Recorded ?Confirmed ?Last Taken ?Type apixaban 2.5 mg tablet (Eliquis) 2.5 mg PO BID 04/04/21 06/13/24 06/12/24 History alendronate 70 mg tablet 70 mg PO ESCOBAR@0900 04/12/22 06/13/24 06/08/24 History multivitamin 1 tab PO DAILY 09/17/22 06/13/24 06/12/24 History Physical Exam 2 Vital Signs: Vital Signs: Last Vital Signs Temp 97.9 F 06/13/24 11:00 Pulse 117 H 06/13/24 11:00 Resp 20 06/13/24 11:00 BP 129/65 06/13/24 11:00 Pulse Ox 94 06/13/24 11:00 O2 Del Method Nasal Cannula 06/13/24 11:00 O2 Flow Rate 1 06/13/24 11:00 BMI result Body Mass Index 21.4 Const: General: cooperative, comfortable, no acute distress, alert, awake and in distress mild and other (Due to pain) Nutritional Appearance: thin O rientation/consciousness: patient oriented x3 HEENT: Head: Yes normocephalic and Yes atraumatic Neck: Neck: Yes trachea midline, Yes supple and Yes no JVD Resp: Effort & Inspection: normal respiratory effort Auscultation: clear to auscultation bilaterally Cardio: Jugular venous distension: no JVD Rate: tachycardic Rhythm: a bnormal rhythm irregularly irregular Heart sounds: S1 normal heart sound present, S2 normal heart sound present, no click, no gallops and no murmurs GI: Auscultation: normal bowel sounds Skin: General skin exam: no rashes or lesions noted Neuro: General: patient oriented x3 and no focal motor deficits Extrem: General: Yes no clubbing, cyanosis or edema Psych: Appearance: grossly normal Objective Labs and Meds 06/13/24 07:07 06/13/24 07:07 Lab results: Laboratory Results - last 24 hr 06/12/24 06/12/24 06/13/24 18:16 23:26 07:07 WBC 11.9 H 10.2 RBC 4.41 4.58 Hgb 13.2 13.7 Hct 38.1 39.9 MCV 86.4 87.1 MCH 29.9 29.9 MCHC 34.6 34.3 RDW 13.3 13.2 Plt Count 202 185 MPV 11.1 10.7 Immature Gran % (Auto) 0.3 Neut % (Auto) 86.7 H Lymph % (Auto) 7.7 L King % (Auto) 5.0 Eos % (Auto) 0.0 Baso % (Auto) 0.3 Lymph # (Auto) 0.9 L King # (Auto) 0.6 Eos # (Auto) 0.0 Baso # (Auto) 0.0 Abs Immat Gran (auto) 0.04 H Absolute Neuts (auto) 10.3 H Absolute Nucleated RBC 0.000 0.000 Nucleated RBC % (auto) 0.0 0.0 PT 17.7 H INR 1.5 H Sodium 135 136 Potassium 3.8 3.6 Chloride 100 104 Carbon Dioxide 22 21 L Anion Gap 17 15 BUN 19 H 14 Creatinine 0.73 0.60 Estim Creat Clear Calc 58.6 71.2 Estimated GFR > 60 > 60 Random Glucose 149 H 120 H Calcium 9.5 9.3 Total Bilirubin 0.9 AST 30 ALT 19 Alkaline Phosphatase 56 Troponin I High Sens 4.0 B-Natriuretic Peptide 733 H Total Protein 6.9 Albumin 4.3 Lipase 8 TSH 0.60 Urine Color Yellow Urine Appearance Clear Urine pH 5.5 Ur Specific [place] >= 1.030 H Urine Protein Trace Urine Glucose (UA) Negative Urine Ketones 15 Urine Blood Negative Urine Nitrite Negative Ur Leukocyte Esterase Negative Urine RBC 0-2 Urine WBC 0-5 Ur Squamous Epith Cells 0-2 Urine Bacteria None Seen Hyaline Casts 0-2 Imaging Radiologist's impression: Impressions Abdomen/Pelvis CTA 06/12/24 20:24 IMPRESSION: 1. No evidence of aortic dissection or aneurysm. 2. Severe cystic changes in the lungs with multiple spiculated masses. Differential diagnosis would include malignancy versus infection. 3. Enlarged fatty liver with indeterminate hypodensities. MRI could be performed for further evaluation. 4. Subtle hypodensity in the head of the pancreas. MRI could be performed for further evaluation. 5. Other incidental findings as described above including a 1.7 cm thyroid nodule, hepatomegaly with steatosis, indeterminate left renal lesion and severe diverticulosis without diverticulitis. 6. Compression fracture L1 with sclerotic densities in T10 and both iliac bones. Bone scan may be useful for further evaluation if malignancy is a consideration. Fleischner guidelines were followed. Electronically signed by: Chele Patten MD 06/12/2024 10:18 PM [facility] [place]A 06/12/24 20:24 IMPRESSION: 1. No evidence of aortic dissection or aneurysm. 2. Severe cystic changes in the lungs with multiple spiculated masses. Differential diagnosis would include malignancy versus infection. 3. Enlarged fatty liver with indeterminate hypodensities. MRI could be performed for further evaluation. 4. Subtle hypodensity in the head of the pancreas. MRI could be performed for further evaluation. 5. Other incidental findings as described above including a 1.7 cm thyroid nodule, hepatomegaly with steatosis, indeterminate left renal lesion and severe diverticulosis without diverticulitis. 6. Compression fracture L1 with sclerotic densities in T10 and both iliac bones. Bone scan may be useful for further evaluation if malignancy is a consideration. Fleischner guidelines were followed. Electronically signed by: Chele Patten MD 06/12/2024 10:18 PM [facility] [place] Assessment and Plan (1) Atrial fibrillation with rapid ventricular response: Status: Acute Atrial fibrillation rapid ventricular response induced by her acute pain in the lower spine. Clinically without any signs or symptoms of heart failure. Will continue pursue rate control approach. Agree with IV Cardizem to maximize to 15 mg an hour. Can also do digoxin load at 0.25 mg IV push q.6 x3 doses. Also can use metoprolol 12.5 mg q.6 hours p.o. for rate control and eventually transition to p.o. meds. Better pain control needs to be pursued. Her Eliquis doses inadequate and would consider increasing it to 5 mg b.i.d.. Blood pressure is optimized at this point time. Will follow with you Procedures Date of Service Date of Service: 06/13/24
[2024-06-13] MEDS: Apixaban 5 MG TABLET PO (20:32)
[2024-06-13] MEDS: 0.9 % Sodium Chloride Flush 3 ML SYRINGE IVFLUSH (20:32)
[2024-06-14] VITALS (12 sets, daily range): BP systolic 127–153; BP diastolic 60–76; PULSE 82–141; RESP 17–20; TEMP 36.4–36.8; O2SAT 92–95
[2024-06-14] MEDS: dilTIAZem HCL 125 MG in 0.9 % Sodium Chloride 100 ML 10 MG IVCONT (09:12)
[2024-06-14] MEDS: Apixaban 5 MG TABLET PO ×2 (09:14→20:30)
[2024-06-14] MEDS: 0.9 % Sodium Chloride Flush 3 ML SYRINGE IVFLUSH ×3 (09:14→20:33)
[2024-06-14] MEDS: Multivitamin TABLET 1 TAB PO (09:14)
[2024-06-14] MEDS: Digoxin 0.5 MG/2 ML AMPUL 0.25 MG IVPUSH ×2 (09:31→15:58)
[2024-06-14] MEDS: atenoloL 25 MG TABLET 12.5 MG PO ×3 (09:33→20:30)
--- NOTE | 2024-06-14 09:37 | PM.PNCARD ---
Subjective Subjective Date of Service: 06/14/24 Principal diagnosis: Atrial fibrillation rapid ventricular response Interval history: Patient remains in 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 rapid ventricular response. Cardizem dose is still at 10 mg an hour. She received 3 doses of IV digoxin 0.125 mg. Was not able to get metoprolol due to side effect with vomiting. It is not an allergic reaction. Denies shortness of breath or chest pain or palpitations. Back pain has improved as per her Review of Systems Constitutional: Reports no additional constitutional complaints Cardiovascular: Reports rapid heart rate Respiratory: Reports no additional respiratory complaints Physical Exam Vital Signs: Last Vital Signs Temp 97.5 F 06/14/24 07:41 Pulse 115 H 06/14/24 07:41 Resp 20 06/14/24 07:41 BP 137/76 06/14/24 07:41 Pulse Ox 95 06/14/24 07:41 O2 Del Method Nasal Cannula 06/14/24 07:41 O2 Flow Rate 1 06/14/24 07:41 BMI result Body Mass Index 21.4 Const General: cooperative, comfortable, no acute distress, alert, awake and in distress mild and other (Due to pain) Nutritional Appearance: thin Orientation/consciousness: patient oriented x3 HEENT Head: Yes normocephalic and Yes atraumatic Neck Neck: Yes trachea midline, Yes supple and Yes no JVD Resp Effort & Inspection: normal respiratory effort Auscultation: clear to auscultation bilaterally Cardio Jugular venous distension: no JVD Rate: tachycardic Rhythm: abnormal rhythm irregularly irregular Heart sounds: S1 normal heart sound present, S2 normal heart sound present, no click, no gallops and no murmurs GI Auscultation: normal bowel sounds Skin General skin exam: no rashes or lesions noted Neuro General: patient oriented x3 and no focal motor deficits Extrem General: Yes no clubbing, cyanosis or edema Psych Appearance: grossly normal Objective Labs and Meds 06/13/24 07:07 06/13/24 07:07 Progress Note: A&P Assessment and plan (1) Atrial fibrillation with rapid ventricular response: Status: Acute Assessment and Plan: Atrial fibrillation rapid ventricular response with poor rate control. Can maximize Cardizem drip to 15 mg an hour. Give couple of more doses of IV digoxin 0.25 mg IV q.6 hours x2 doses. She has a side effect to metoprolol therapy and therefore would switch to a different alternative beta-sofia such as atenolol at 12.5 mg q.6 hours. Continue oral anticoagulation with Eliquis at 5 mg b.i.d.. Will continue to follow with you Time Spent With Patient Time: Total time managing care of this patient today ____ minutes. Progress Note: Quality Stroke Does the patient have a stroke diagnosis?: No Procedures Date of Service Date of Service: 06/14/24
--- NOTE | 2024-06-14 10:42 | HO.PM.IMPN ---
Subjective Subjective Date of Service: 06/14/24 Interval History: f/u on afib with rvr and back pain She remains in afib with RVR, no back pain Physical Exam Vital Signs: Vital Signs: Last Vital Signs Temp 97.5 F 06/14/24 07:41 Pulse 115 H 06/14/24 07:41 Resp 20 06/14/24 07:41 BP 137/76 06/14/24 07:41 Pulse Ox 95 06/14/24 07:41 O2 Del Method Nasal Cannula 06/14/24 07:41 O2 Flow Rate 1 06/14/24 07:41 BMI result Body Mass Index 21.4 General: AO X 3, no acute distress Resp: CTA bilateral CVS: S1,S2, iregular iregular GI: +BS, NT, no distention Skin: No rash Neuro: motor grossly intact Psych: appropriate affect Objective Data Active Medications Acetaminophen (Acetaminophen 325 Mg Tablet) 650 mg PO Q6H PRN PRN Reason: Pain, Mild (Pain Scale 1-3), fever or headache Apixaban (Apixaban 5 Mg Tablet) 5 mg PO BID [facility] Last Admin: 06/14/24 09:14 Dose: 5 mg Documented By: YASMIN Atenolol (Atenolol 25 Mg Tablet) 12.5 mg PO Q6H [facility]; Protocol Last Admin: 06/14/24 09:33 Dose: 12.5 mg Documented By: YASMIN Calcium Carbonate (Calcium Carbonate 750 Mg Tab.Chew) 750 mg PO Q4H PRN PRN Reason: Heartburn Digoxin (Digoxin 0.5 Mg/2 Ml Ampul) 0.25 mg IVPUSH Q6H [facility]; Protocol Stop: 06/14/24 15:16 Last Admin: 06/14/24 09:31 Dose: 0.25 mg Documented By: YASMIN Hydromorphone HCl (Hydromorphone Hcl 0.5 Mg/0.5 Ml Syringe) 0.5 mg IVPUSH Q4H PRN; Protocol PRN Reason: Pain, Severe (Pain Scale 7-10) Diltiazem HCl 125 mg/ Sodium (Chloride) 125 mls @ 0 mls/hr IVCONT .Q0M [facility]; Protocol Last Titration: 06/14/24 10:35 Dose: 5 mg/hr, 5 mls/hr Documented By: YASMIN Magnesium Hydroxide (Milk Of Magnesia 30 Ml Oral.Susp) 30 ml PO DAILY PRN PRN Reason: Constipation Melatonin (Melatonin 3 Mg Tablet) 6 mg PO BEDTIME PRN PRN Reason: Insomnia Multivitamins/Vitamin C (Multivitamin Tablet) 1 tab PO DAILY [facility] Last Admin: 06/14/24 09:14 Dose: 1 tab Documented By: YASMIN Ondansetron HCl (Ondansetron Hcl 4 Mg/2 Ml Vial) 4 mg IVPUSH Q8H PRN PRN Reason: Nausea and Vomiting Sodium Chloride (0.9 % Sodium Chloride Flush 3 Ml Syringe) 3 ml IVFLUSH QSHIFT [facility] Last Admin: 06/14/24 09:14 Dose: 3 ml Documented By: YASMIN Labs 06/13/24 07:07 06/13/24 07:07 Assessment and Plan (1) PAF (paroxysmal 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): Status: Acute (2) Atrial fibrillation with rapid ventricular response: Status: Acute (3) ST segment depression: Status: Acute Plan 88/F with history of paroxysmal 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 (PAF) on Eliquis, HTN, osteoporosis AFib with RVR, persistent tachycardia continue cardizem gtt, HR target of < 100 add iv dig loading, again today add atenolol 12.5 qid eliquis for stroke prevention cardiology following Back pain likely from compression fracture Imaging with L1 compression fracture--pain hypodensity in the head of pancreas, fatty liver with hypodensity and cystic changes in the lungs. MRI to delineate underlying anatomy. IV opioids p.r.n. for intractable back pain... MRI when heart rate is controlled. Elevated BNP: No overt heart failure, likey from afib rvr Hypertension: On amlodipine while on iv cardizem Osteoporosis: On alendronate DVT prophylaxis: Eliquis DNR/DNI. Discussed with patient at bedside Quality Stroke Does the patient have a stroke diagnosis?: No VTE Prior VTE?: No VTE Risk Level:: Medical - moderate - high VTE Device Contraindication: Treatment Not Indicated VTE Drug Contraindication: N/A - Med Ordered
[2024-06-14] MEDS: gadobutroL 7.5 ML VIAL IVPUSH (13:33)
[2024-06-14] MEDS: Melatonin 3 MG TABLET 6 MG PO (20:29)
[2024-06-15] VITALS (7 sets, daily range): BP systolic 114–141; BP diastolic 58–69; PULSE 86–101; RESP 14–19; TEMP 36–36.9; O2SAT 92–96
[2024-06-15] MEDS: atenoloL 25 MG TABLET 12.5 MG PO ×3 (04:08→09:58)
[2024-06-15] MEDS: Multivitamin TABLET 1 TAB PO (08:15)
[2024-06-15] MEDS: Apixaban 5 MG TABLET PO ×2 (08:15→19:50)
[2024-06-15] MEDS: 0.9 % Sodium Chloride Flush 3 ML SYRINGE IVFLUSH ×2 (08:15→19:50)
--- NOTE | 2024-06-15 10:17 | P.PNIM_ITS ---
Subjective Subjective Date of Service: 06/15/24 Interval History: f/u on afib with rvr and back pain HR is now controlled, no back pain Physical Exam 2 Vital Signs: Vital Signs: Last Vital Signs Temp 97.5 F 06/15/24 08:00 Pulse 86 06/15/24 08:10 Resp 18 06/15/24 08:00 BP 141/69 H 06/15/24 08:00 Pulse Ox 96 06/15/24 08:00 O2 Del Method Room Air 06/15/24 08:00 O2 Flow Rate 1 06/15/24 04:00 BMI result Body Mass Index 21.4 General: AO X 3, no acute distress Resp: CTA bilateral CVS: S1,S2, iregular iregular GI: +BS, NT, no distention Skin: No rash Neuro: motor grossly intact Psych: appropriate affect Objective Data Active Medications Acetaminophen (Acetaminophen 325 Mg Tablet) 650 mg PO Q6H PRN PRN Reason: Pain, Mild (Pain Scale 1-3), fever or headache Apixaban (Apixaban 5 Mg Tablet) 5 mg PO BID [facility] Last Admin: 06/15/24 08:15 Dose: 5 mg Documented By: TRACY Atenolol (Atenolol 25 Mg Tablet) 25 mg PO BID [facility]; Protocol Calcium Carbonate (Calcium Carbonate 750 Mg Tab.Chew) 750 mg PO Q4H PRN PRN Reason: Heartburn Hydromorphone HCl (Hydromorphone Hcl 0.5 Mg/0.5 Ml Syringe) 0.5 mg IVPUSH Q4H PRN; Protocol PRN Reason: Pain, Severe (Pain Scale 7-10) Magnesium Hydroxide (Milk Of Magnesia 30 Ml Oral.Susp) 30 ml PO DAILY PRN PRN Reason: Constipation Melatonin (Melatonin 3 Mg Tablet) 6 mg PO BEDTIME PRN PRN Reason: Insomnia Last Admin: 06/14/24 20:29 Dose: 6 mg Documented By: DON Multivitamins/Vitamin C (Multivitamin Tablet) 1 tab PO DAILY [facility] Last Admin: 06/15/24 08:15 Dose: 1 tab Documented By: TRACY Ondansetron HCl (Ondansetron Hcl 4 Mg/2 Ml Vial) 4 mg IVPUSH Q8H PRN PRN Reason: Nausea and Vomiting Sodium Chloride (0.9 % Sodium Chloride Flush 3 Ml Syringe) 3 ml IVFLUSH QSHIFT [facility] Last Admin: 06/15/24 08:15 Dose: 3 ml Documented By: TRACY Labs 06/13/24 07:07 06/13/24 07:07 Assessment and Plan (1) PAF (paroxysmal 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): Status: Acute (2) Atrial fibrillation with rapid ventricular response: Status: Acute (3) ST segment depression: Status: Acute Plan 88/F with history of paroxysmal 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 (PAF) on Eliquis, HTN, osteoporosis AFib with RVR, persistent tachycardia continue cardizem gtt, HR target of < 100 dig loaded continue Atenolol at 50 bid eliquis for stroke prevention cardiology following Back pain likely from compression fracture Imaging with L1 compression fracture--pain hypodensity in the head of pancreas, fatty liver with hypodensity and cystic changes in the lungs. MRI to delineate underlying anatomy. IV opioids p.r.n. for intractable back pain... MRI result pending Elevated BNP: No overt heart failure, likey from afib rvr Hypertension: On amlodipine while on iv cardizem Osteoporosis: On alendronate DVT prophylaxis: Eliquis DNR/DNI. Discussed with patient at bedside Frail, PT eval tomorrow Quality Stroke Does the patient have a stroke diagnosis?: No VTE Prior VTE?: No VTE Risk Level:: Medical - moderate - high VTE Device Contraindication: Treatment Not Indicated VTE Drug Contraindication: N/A - Med Ordered
--- NOTE | 2024-06-15 10:45 | PM.PNCARD ---
Subjective Subjective Date of Service: 06/15/24 Principal diagnosis: Atrial fibrillation rapid ventricular response Interval history: Patient says she feels fatigued, thinks this is due to atenolol. Although rate is much better control. She is off Cardizem drip. Denies any palpitations. Not much back pain. Review of Systems Constitutional: Reports fatigue and Denies weakness Cardiovascular: Reports no additional cardiovascular complaints Respiratory: Reports no additional respiratory complaints Gastrointestinal: Reports no additional gastrointestinal complaints Musculoskeletal: Reports no additional musculoskeletal complaints Denies weakness Endocrine: Reports fatigue Physical Exam Vital Signs: Last Vital Signs Temp 97.5 F 06/15/24 08:00 Pulse 86 06/15/24 08:10 Resp 18 06/15/24 08:00 BP 141/69 H 06/15/24 08:00 Pulse Ox 96 06/15/24 08:00 O2 Del Method Room Air 06/15/24 08:00 O2 Flow Rate 1 06/15/24 04:00 BMI result Body Mass Index 21.4 Const General: cooperative, comfortable, no acute distress, alert, awake and in distress mild and other (Due to pain) Nutritional Appearance: thin Orientation/consciousness: patient oriented x3 HEENT Head: Yes normocephalic and Yes atraumatic Neck Neck: Yes trachea midline, Yes supple and Yes no JVD Resp Effort & Inspection: normal respiratory effort Auscultation: clear to auscultation bilaterally Cardio Jugular venous distension: no JVD Rate: tachycardic Rhythm: abnormal rhythm irregularly irregular Heart sounds: S1 normal heart sound present, S2 normal heart sound present, no click, no gallops and no murmurs GI Auscultation: normal bowel sounds Skin General skin exam: no rashes or lesions noted Neuro General: patient oriented x3 and no focal motor deficits Extrem General: Yes no clubbing, cyanosis or edema Psych Appearance: grossly normal Objective Labs and Meds 06/13/24 07:07 06/13/24 07:07 Progress Note: A&P Assessment and plan (1) Atrial fibrillation with rapid ventricular response: Status: Acute Assessment and Plan: Atrial fibrillation rapid ventricular response much better rate control. Increase atenolol to 50 mg b.i.d.. Closely monitor for 1 more day. Reduce amlodipine to half the dose. Continue full oral anticoagulation, currently on Eliquis 5 mg b.i.d.. Importance of better rate control was discussed with her. Continue pain control. Patient requests to stay 1 more day for PT evaluation. Will sign of the case. Thank you for allowing me to partake in his care Time Spent With Patient Time: Total time managing care of this patient today ____ minutes. Progress Note: Quality Stroke Does the patient have a stroke diagnosis?: No Procedures Date of Service Date of Service: 06/15/24
[2024-06-15] MEDS: atenoloL 25 MG TABLET PO (19:49)
[2024-06-16] VITALS (7 sets, daily range): BP systolic 100–143; BP diastolic 60–80; PULSE 83–140; RESP 16–20; TEMP 36.3–37.1; O2SAT 94–98
--- NOTE | 2024-06-16 07:46 | PM.DS ---
DS: Providers Provider Date of admission: 06/12/24 22:42 Primary care physician: Oskar Lee MD Consults: 06/12/24 22:42 Consult to Cardiology Routine Consulting Provider: [facility] [place] [facility] Reason for consultation: afib with rvr Has provider been notified: Yes DS: Diagnosis Discharge Diagnosis (1) Atrial fibrillation with rapid ventricular response: Status: Acute DS: Summary Hospital Course Hospital Course: admission hpi Chief Complaint: Back pain This is a 88-year-old female with pertinent history of paroxysmal 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 on Eliquis, hypertension, osteoporosis who presents to the emergency department for evaluation of back pain. Patient has had chronic back pain but states for the last 2 days the back pain is more intense, constant, and with intermittent radiation to the abdomen. She is unable to tolerate the back and abdominal pain which prompted ER visit. No chest pain. Endorses palpitations. No fever, chills, dyspnea. Denies nausea, vomiting, changes in bowel habits. In the emergency department, patient was found to be in AFib with RVR and initiated on diltiazem drip. Imaging with cystic changes in the lungs with multiple spiculated masses, hypodensity in the head of pancreas, hypodensity in the liver, sclerotic density in T10 and iliac bones. hospial course: AFib with RVR, persistent tachycardia continue cardizem gtt, HR target of < 100 dig loaded continue Atenolol at 50 bid eliquis for stroke prevention cardiology following Back pain likely from compression fracture Imaging with L1 compression fracture--pain hypodensity in the head of pancreas, fatty liver with hypodensity and cystic changes in the lungs. MRI to delineate underlying anatomy. IV opioids p.r.n. for intractable back pain... MRI result pending Elevated BNP: No overt heart failure, likey from afib rvr Hypertension: On amlodipine while on iv cardizem Osteoporosis: On alendronate Time Attestation Discharge Coordination Time (in mins): 45 Quality: Safe Use of Opioids Does Pt have an Active Cancer Diagnosis on the Problem List?: No Quality: Stroke Does the patient have a stroke diagnosis?: No Physical Exam Vital Signs: Vital Signs: Last Vital Signs Temp 97.7 F 06/16/24 03:22 Pulse 83 06/16/24 03:22 Resp 18 06/16/24 03:22 BP 133/65 06/16/24 03:22 Pulse Ox 97 06/16/24 03:22 O2 Del Method Room Air 06/16/24 03:22 O2 Flow Rate 1 06/15/24 04:00 BMI result Body Mass Index 21.4 Discharge Plan Discharge Patient Disposition: Home, Self-Care Discharge Diagnosis: AFIB with RVR, back pain Referrals: Oskar Lee MD [Primary Care Provider] - 1 Week Discharge Medications: New Eliquis 5 mg Tablet 5 mg PO BID Qty: 180 0RF Continued multivitamin Tablet 1 tab PO DAILY alendronate 70 mg tablet 70 mg PO ESCOBAR@0900 Discontinued amlodipine 10 mg tablet 10 mg PO DAILY Qty: 30 1RF Eliquis 2.5 mg tablet 2.5 mg PO BID Diet: Advance to usual diet Activity on Discharge: As tolerated Stand Alone Forms: Patient Portal Discharge page Print Language: Cuban Care Plan Goals: control of atrial fibrilation Health Concerns: afib with rvr back pain Plan of Treatment: stop taking norvasc take atenolol 50 mg twice daily to cotrol heart rate and blood pressure Assessment: see above
[2024-06-16] MEDS: Apixaban 5 MG TABLET PO (08:02)
[2024-06-16] MEDS: atenoloL 50 MG TABLET PO (08:02)
[2024-06-16] MEDS: Multivitamin TABLET 1 TAB PO (08:02)
[2024-06-16] MEDS: Lidocaine 4 % Patch ADH..PATCH 1 PATCH TRANSDERMA (08:04)
[2024-06-16] MEDS: 0.9 % Sodium Chloride Flush 3 ML SYRINGE IVFLUSH ×3 (08:04→21:27)
--- NOTE | 2024-06-16 12:25 | MHC.CM.PN ---
PER HOSPITALIST ANTIC PT WILL DC PENDING ABB MRI RESULTS, PLAN FOR DC W/NEW [facility] FOR SN/PT, PT WILL ARRANGE RIDE HOME.
--- NOTE | 2024-06-16 12:38 | P.PNIM_ITS ---
Subjective Subjective Date of Service: 06/16/24 Interval History: f/u on afib with rvr and back pain Pt reports feeling dizzy after taking Atenolol and norvasc Physical Exam 2 Vital Signs: Vital Signs: Last Vital Signs Temp 98.3 F 06/16/24 08:00 Pulse 140 H 06/16/24 09:36 Resp 18 06/16/24 08:00 BP 140/60 H 06/16/24 08:00 Pulse Ox 98 06/16/24 08:00 O2 Del Method Room Air 06/16/24 08:00 O2 Flow Rate 1 06/15/24 04:00 BMI result Body Mass Index 21.4 Const: Other: General: AO X 3, no acute distress Resp: CTA bilateral CVS: S1,S2, iregular iregular GI: +BS, NT, no distention Skin: No rash Neuro: motor grossly intact Psych: appropriate affect Objective Data Active Medications Acetaminophen (Acetaminophen 325 Mg Tablet) 650 mg PO Q6H PRN PRN Reason: Pain, Mild (Pain Scale 1-3), fever or headache Amlodipine Besylate (Amlodipine Besylate 5 Mg Tablet) 5 mg PO DAILY [facility]; Protocol Apixaban (Apixaban 5 Mg Tablet) 5 mg PO BID [facility] Last Admin: 06/16/24 08:02 Dose: 5 mg Documented By: LOLA Atenolol (Atenolol 50 Mg Tablet) 50 mg PO BID [facility]; Protocol Last Admin: 06/16/24 08:02 Dose: 50 mg Documented By: LOLA Calcium Carbonate (Calcium Carbonate 750 Mg Tab.Chew) 750 mg PO Q4H PRN PRN Reason: Heartburn Hydromorphone HCl (Hydromorphone Hcl 0.5 Mg/0.5 Ml Syringe) 0.5 mg IVPUSH Q4H PRN; Protocol PRN Reason: Pain, Severe (Pain Scale 7-10) Lidocaine (Lidocaine 4 % Patch Adh..Patch) 1 patch TRANSDERMA DAILY [facility]; Protocol Last Admin: 06/16/24 08:04 Dose: 1 patch Documented By: LOLA Magnesium Hydroxide (Milk Of Magnesia 30 Ml Oral.Susp) 30 ml PO DAILY PRN PRN Reason: Constipation Melatonin (Melatonin 3 Mg Tablet) 6 mg PO BEDTIME PRN PRN Reason: Insomnia Last Admin: 06/14/24 20:29 Dose: 6 mg Documented By: DON Multivitamins/Vitamin C (Multivitamin Tablet) 1 tab PO DAILY [facility] Last Admin: 06/16/24 08:02 Dose: 1 tab Documented By: LOLA Ondansetron HCl (Ondansetron Hcl 4 Mg/2 Ml Vial) 4 mg IVPUSH Q8H PRN PRN Reason: Nausea and Vomiting Sodium Chloride (0.9 % Sodium Chloride Flush 3 Ml Syringe) 3 ml IVFLUSH QSHIFT [facility] Last Admin: 06/16/24 08:04 Dose: 3 ml Documented By: LOLA Labs 06/13/24 07:07 06/13/24 07:07 Assessment and Plan (1) PAF (paroxysmal 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): Status: Acute (2) Atrial fibrillation with rapid ventricular response: Status: Acute (3) ST segment depression: Status: Acute Plan 88/F with history of paroxysmal 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 (PAF) on Eliquis, HTN, osteoporosis AFib with RVR, persistent tachycardia dig loaded change atenolol back 25 bid eliquis for stroke prevention cardiology following Back pain likely from compression fracture Imaging with L1 compression fracture--pain hypodensity in the head of pancreas, fatty liver with hypodensity and cystic changes in the lungs. MRI to delineate underlying anatomy. IV opioids p.r.n. for intractable back pain... MRI result pending Elevated BNP: No overt heart failure, likey from afib rvr Hypertension: stop norvasc, d/t low bp Osteoporosis: On alendronate DVT prophylaxis: Eliquis DNR/DNI. Discussed with patient at bedside Frail, PT recommends STR Quality Stroke Does the patient have a stroke diagnosis?: No VTE Prior VTE?: No VTE Risk Level:: Medical - moderate - high VTE Device Contraindication: Treatment Not Indicated VTE Drug Contraindication: N/A - Med Ordered
[2024-06-16] MEDS: atenoloL 25 MG TABLET PO (21:27)
[2024-06-17 04:00] VITALS: BP 132/65; PULSE 89; RESP 16; TEMP 36.4; O2SAT 96
[2024-06-17 07:14] VITALS: BP 169/79; PULSE 91; RESP 18; TEMP 37.1; O2SAT 96
[2024-06-17] MEDS: Apixaban 5 MG TABLET PO (08:11)
[2024-06-17] MEDS: Multivitamin TABLET 1 TAB PO (08:11)
[2024-06-17] MEDS: atenoloL 25 MG TABLET PO (08:11)
[2024-06-17] MEDS: 0.9 % Sodium Chloride Flush 3 ML SYRINGE IVFLUSH (08:12)
[2024-06-17] MEDS: Lidocaine 4 % Patch ADH..PATCH 1 PATCH TRANSDERMA (08:26)
[2024-06-17 11:16] VITALS: BP 92/55; PULSE 91; RESP 16; TEMP 36.8; O2SAT 97
--- NOTE | 2024-06-17 11:24 | P.CNGI_ITS ---
History of Present Illness Data of Consult Service Date: 06/17/24 Primary Care Provider: Oskar Lee MD HPI Reason for consult: panc mass 88-year-old female with history of paroxysmal 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 on Eliquis, hypertension, COPD, osteoporosis who I am seeing for assessment for panc mass Patient intially came with acute on chronic upper back pain which was constant and intense with radiaiton into the abdomen. No fever, chills, dyspnea. Denies nausea, vomiting, changes in bowel habits. She did admit to palpitations but no chest pain. she denies weight loss, says she has good appetite Patient was found to be in a-fib w/ RVR and this has been controlled with medications. SHe now feels well and wants to go home. She did have imaging revealing cystic changes in the lungs with multiple spiculated masses, hypodensity in the head of pancreas, hypodensity in the liver, sclerotic density in T10 and iliac bones w/ compression # and thyorid nodules MRI of pancreas with 1.8 cm lesion and downstream atrophy of pancreas Review of Systems 2 Review of Systems: Constitutional : No Weight loss, No Fever, No Chills ENT/Mouth : No sore throat, No Rhinorrhea Eyes: No Swelling, No Redness Cardiovascular : No Chest Pain, No SOB, No Edema Respiratory : No Cough, No Sputum, No Wheezing Gastrointestinal : see HPI Genitourinary : NO Dysuria, No Urinary Frequency, No Hematuria, No Urgency Musculoskeletal : + joint pain, No Myalgias, No Joint Swelling Skin : No Skin Lesions, No rash Neuro : No Weakness, No Numbness, No Dizziness, No Headache Psych : No Anxiety/Panic, No Depression Heme/Lymph: No Bruising, No Lymphadenopathy Endocrine : No Polyuria, No Polydipsia All other systems reviewed and are negative. 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 PAF (paroxysmal 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) Endometrial cyst of ovary Family History Family History Father Rectal cancer Stroke Mother CVD (cardiovascular disease) Heart failure Surgical History Surgical History History of total right hip arthroplasty H/O dilation and curettage S/P right oophorectomy Social History Social History Household Members: None Housing: House Do you presently have visiting nurse or other home services: No Unable to assess alcohol history related to: Unknown Alcohol intake: never Patient Tobacco Use Status: Former Tobacco user service: No Meds Allergies Allergy/AdvReac Type Severity Reaction Status Date / Time morphine [MORPHINE] Allergy Severe VOMITING Verified 06/12/24 17:22 amiodarone Allergy Nausea and Verified 06/12/24 17:22 Vomiting metoprolol Allergy Nausea and Verified 06/13/24 03:08 Vomiting Active Medications: Current Medications Acetaminophen (Acetaminophen 325 Mg Tablet) 650 mg PO Q6H PRN PRN Reason: Pain, Mild (Pain Scale 1-3), fever or headache Apixaban (Apixaban 5 Mg Tablet) 5 mg PO BID [facility] Last Admin: 06/17/24 08:11 Dose: 5 mg Atenolol (Atenolol 25 Mg Tablet) 25 mg PO BID [facility]; Protocol Last Admin: 06/17/24 08:11 Dose: 25 mg Calcium Carbonate (Calcium Carbonate 750 Mg Tab.Chew) 750 mg PO Q4H PRN PRN Reason: Heartburn Hydromorphone HCl (Hydromorphone Hcl 2 Mg Tablet) 0.5 mg PO Q4H PRN PRN Reason: Pain, Moderate(Pain Scale 4-6) Lidocaine (Lidocaine 4 % Patch Adh..Patch) 1 patch TRANSDERMA DAILY [facility]; Protocol Last Admin: 06/17/24 08:26 Dose: 1 patch Magnesium Hydroxide (Milk Of Magnesia 30 Ml Oral.Susp) 30 ml PO DAILY PRN PRN Reason: Constipation Melatonin (Melatonin 3 Mg Tablet) 6 mg PO BEDTIME PRN PRN Reason: Insomnia Last Admin: 06/14/24 20:29 Dose: 6 mg Multivitamins/Vitamin C (Multivitamin Tablet) 1 tab PO DAILY [facility] Last Admin: 06/17/24 08:11 Dose: 1 tab Ondansetron HCl (Ondansetron Hcl 4 Mg/2 Ml Vial) 4 mg IVPUSH Q8H PRN PRN Reason: Nausea and Vomiting Sodium Chloride (0.9 % Sodium Chloride Flush 3 Ml Syringe) 3 ml IVFLUSH QSHIFT [facility] Last Admin: 06/17/24 08:12 Dose: 3 ml Home Medications ?Medication ?Instructions ?Recorded ?Confirmed ?Last Taken ?Type alendronate 70 mg tablet 70 mg PO ESCOBAR@0900 04/12/22 06/13/24 06/08/24 History multivitamin 1 tab PO DAILY 09/17/22 06/13/24 06/12/24 History Physical Exam 2 Vital Signs: Vital Signs: Last Vital Signs Temp 98.8 F 06/17/24 07:14 Pulse 91 06/17/24 07:14 Resp 18 06/17/24 07:14 BP 169/79 H 06/17/24 07:14 Pulse Ox 96 06/17/24 07:14 O2 Del Method Room Air 06/17/24 07:14 O2 Flow Rate 1 06/15/24 04:00 BMI result Body Mass Index 21.4 EXAM: GENERAL: The patient is well developed and nontoxic. VITAL SIGNS:see workflow HEENT: Nonicteric sclerae, PERRLA, EOMI. Oropharynx clear. Moist mucous membranes. Conjunctivae appear well perfused. No thyroid mass. CHEST: Chest wall is nontender. HEART: Regular rate and rhythm without murmurs. LUNGS: hyperinflated chest wall with mild wheeze ABDOMEN: Soft, positive bowel sounds, nontender, no organomegaly.no flank tenderness SKIN: No rash, no excessive bruising, petechiae, or purpura. NEUROLOGIC: Cranial nerves II-XII intact without motor/sensory deficit. Psych: normal affect Results Labs 06/13/24 07:07 06/13/24 07:[address] scan - abdomen: Attestation: I personally reviewed and interpreted this imaging study as follows: (compression #, panc lesion, ) Assessment and Plan (1) Pancreatic lesion: Status: Acute Plan 1/ Offered oatient referral to tertiary center for EUS and bx but patient is opposed to any further invasive testing and work up saying that given her age she would not want treatment or surgery even if cancer. Also she has lung lesions significance of which is uncertain, but could be lung mets or primaries If patient changes her mind on work up tc advised to call my office or see her PCP might need to se pulm as well Procedures Date of Service Date of Service: 06/17/24
[2024-06-17 12:09] VITALS: BP 117/59; PULSE 78; RESP 18
--- NOTE | 2024-06-17 12:30 | PC.NURSE ---
ambulated with the walker, no sob, no palpitation, no dizziness
--- NOTE | 2024-06-17 12:44 | PM.DS ---
DS: Providers Provider Date of Service: 06/17/24 Date of admission: 06/12/24 22:42 Date of discharge: 06/17/24 Primary care physician: Oskar Lee MD Consults: 06/12/24 22:42 Consult to Cardiology Routine Consulting Provider: [facility] [place] [facility] Reason for consultation: afib with rvr Has provider been notified: Yes 06/17/24 08:42 Consult to Gastroenterology Routine Consulting Provider: [facility] [place] [facility] Reason for consultation: pancreatic head 1.8 cm lesion? Has provider been notified: No DS: Diagnosis Discharge Diagnosis (1) PAF (paroxysmal 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): Status: Acute (2) Atrial fibrillation with rapid ventricular response: Status: Acute (3) ST segment depression: Status: Acute DS: Summary Hospital Course Hospital Course: admission hpi Chief Complaint: Back pain This is a 88-year-old female with pertinent history of paroxysmal 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 on Eliquis, hypertension, osteoporosis who presents to the emergency department for evaluation of back pain. Patient has had chronic back pain but states for the last 2 days the back pain is more intense, constant, and with intermittent radiation to the abdomen. She is unable to tolerate the back and abdominal pain which prompted ER visit. No chest pain. Endorses palpitations. No fever, chills, dyspnea. Denies nausea, vomiting, changes in bowel habits. In the emergency department, patient was found to be in AFib with RVR and initiated on diltiazem drip. Imaging with cystic changes in the lungs with multiple spiculated masses, hypodensity in the head of pancreas, hypodensity in the liver, sclerotic density in T10 and iliac bones. hospial course: AFib with RVR, persistent tachycardia received cardizem gtt as well as dig loaded. Elevated BNP: thought to be likey from afib rvr.patient is euvolemic. seen by cardiology:hr seem improved -continue Atenolol at 50 bid,eliquis for stroke prevention. Back pain likely from compression fracture Imaging with L1 compression fracture--pain: continue tylenol and lidocaine patch. currently asymptomatic. pt rec home pt. hypodensity in the head of pancreas, fatty liver with hypodensity and cystic changes in the lungs: MRI -Subtle area of possible hypoenhancement in the head of the pancreas measuring 1.8 cm ,sclerotic density in T10 and iliac bones.( please see MRI detailed report in imaging section). seen by GI- Offered oatient referral to tertiary center for EUS and bx but patient is opposed to any further invasive testing and work up saying that given her age she would not want treatment or surgery even if cancer. Also she has lung lesions significance of which is uncertain, but could be lung mets or primaries If patient changes her mind on work up tc advised to call my office or see her PCP might need to se pulm as well . Osteoporosis: On alendronate. plan: stop taking norvasc,take atenolol 50 mg twice daily to control heart rate and blood pressure, continue eliquis. continue tylenol and lidocaine patch for back pain. Mri results d/w patient by Gi-currently patient not interested for further interventions ,suggested to follow up with pcp and can reach out to GI and pulm outpatient if decide to presure further interventions . Assessment plan coordination time spent 40 minute. Time Attestation Total time managing care of this patient today: 40 mintues. Discharge Coordination Time (in mins): 40 min Quality: Safe Use of Opioids Does Pt have an Active Cancer Diagnosis on the Problem List?: No Quality: Stroke Does the patient have a stroke diagnosis?: No Physical Exam Vital Signs: Vital Signs: Last Vital Signs Temp 98.3 F 06/17/24 11:16 Pulse 78 06/17/24 12:09 Resp 18 06/17/24 12:09 BP 117/59 L 06/17/24 12:09 Pulse Ox 97 06/17/24 11:16 O2 Del Method Room Air 06/17/24 11:16 O2 Flow Rate 1 06/15/24 04:00 BMI result Body Mass Index 21.4 General: AO X 3, no acute distress Resp: CTA bilateral CVS: S1,S2, iregular iregular GI: +BS, NT, no distention Skin: No rash Neuro: motor grossly intact Psych: appropriate affect DS: Data Imaging Chest x-ray: Radiologist's impression: ITS Impressions Abdomen/Pelvis CTA 06/12/24 20:24 IMPRESSION: 1. No evidence of aortic dissection or aneurysm. 2. Severe cystic changes in the lungs with multiple spiculated masses. Differential diagnosis would include malignancy versus infection. 3. Enlarged fatty liver with indeterminate hypodensities. MRI could be performed for further evaluation. 4. Subtle hypodensity in the head of the pancreas. MRI could be performed for further evaluation. 5. Other incidental findings as described above including a 1.7 cm thyroid nodule, hepatomegaly with steatosis, indeterminate left renal lesion and severe diverticulosis without diverticulitis. 6. Compression fracture L1 with sclerotic densities in T10 and both iliac bones. Bone scan may be useful for further evaluation if malignancy is a consideration. Fleischner guidelines were followed. Electronically signed by: Chele Patten MD 06/12/2024 10:18 PM EST RP Chest CTA 06/12/24 20:24 IMPRESSION: 1. No evidence of aortic dissection or aneurysm. 2. Severe cystic changes in the lungs with multiple spiculated masses. Differential diagnosis would include malignancy versus infection. 3. Enlarged fatty liver with indeterminate hypodensities. MRI could be performed for further evaluation. 4. Subtle hypodensity in the head of the pancreas. MRI could be performed for further evaluation. 5. Other incidental findings as described above including a 1.7 cm thyroid nodule, hepatomegaly with steatosis, indeterminate left renal lesion and severe diverticulosis without diverticulitis. 6. Compression fracture L1 with sclerotic densities in T10 and both iliac bones. Bone scan may be useful for further evaluation if malignancy is a consideration. Fleischner guidelines were followed. Electronically signed by: Chele Patten MD 06/12/2024 10:18 PM [employer] Abdomen MRI 06/14/24 13:00 IMPRESSION: Limited study due to motion artifact. Subtle area of possible hypoenhancement in the head of the pancreas measuring 1.8 cm corresponding to the recent CT. Results There is no ductal dilatation or peripancreatic stranding. The abnormality is not reproducible on all sequences most likely related to motion artifact. There is some evidence of atrophy of the more distal downstream pancreas. There is concern for underlying pancreatic mass. Consider EUS/FNA. Electronically signed by: Rommel Fox MD 06/16/2024 01:34 PM [employer] [facility] [employer] Discharge Plan Discharge Anticipated Discharge Date/Time: 06/17/24 11:55 Patient Disposition: Home Health Service Discharge Diagnosis: AFIB with RVR, back pain Referrals: [facility] [Outside] - 1 Day (HOME PHYSICAL THERAPY AND NURSING HOME) Ramila Swartz MD [Physician] - 1 Week (follow up outpatient if decides ) Oskar Lee MD [Primary Care Provider] - 1 Week Discharge Medications: New Eliquis 5 mg Tablet 5 mg PO BID Qty: 180 0RF acetaminophen 325 mg Tablet 650 mg PO Q6H PRN (Reason: Pain, Mild (Pain Scale 1-3), fever or headache) Qty: 20 0RF lidocaine [Lidocaine Pain Relief] 4 % Adhesive Patch,Medicated 1 patch transdermal DAILY Qty: 20 0RF Protocol: Apply to: Apply to: lower back atenolol 25 mg Tablet 25 mg PO BID Qty: 120 0RF Protocol: Hold for SBP/HR < HOLD for SBP < : 90 HOLD for HR < : 60 Continued multivitamin Tablet 1 tab PO DAILY alendronate 70 mg tablet 70 mg PO ESCOBAR@0900 Discontinued amlodipine 10 mg tablet 10 mg PO DAILY Qty: 30 1RF Eliquis 2.5 mg tablet 2.5 mg PO BID Discharge Orders: Discharge Order (Routine); Ordered 06/17/24 Ordered By: Den [place] Diet: Advance to usual diet Activity on Discharge: As tolerated Stand Alone Forms: Patient Portal Discharge page Print Language: Lithuanian Care Plan Goals: control of atrial fibrilation Health Concerns: afib with rvr back pain Plan of Treatment: stop taking norvasc take atenolol 50 mg twice daily to cotrol heart rate and blood pressure Assessment: see above Patient Instructions: Atenolol (By mouth), Acetaminophen (By mouth), Lidocaine (On the skin), Apixaban (By mouth) Discharge Date/Time: 06/17/24 15:14
--- NOTE | 2024-06-17 12:54 | P.F2F_ITS ---
Service Date Service Date: 06/17/24 Encounter Date of encounter: 06/17/24 Encounter: afib , generlaised weak, back pain Reasons for Services Signs and symptoms assessed: palpatations ,chest pain or sob. Reason for group home: medication management, medication treatment and teach disease management Reason for physical therapy: home safety and mobility, therapeutic exercises, restore joint function, gait/transfer training, assess need for DME, ADL training, energy conservation and other MD Overseeing Care: Oskar Lee Homebound: Leaving the home is medically contraindicated at this time without the asist of a device and/or another person due th the listed conditions above and below. Reason homebound: weakness related to hospital stay Homebound supporting statement: Patient is generalized weak has multiple comorbidities-need help with appointments, blood draws, PT, medical management Certification: Based on the above findings, I certify that this patient is confined to the home and needs intermittent group home care, physical therapy and/or speech therapy, or continues to need occupational therapy. The patient is under my care, and I have initiated the establishment of the plan of care. The patient will be followed by a physician who will periodically review the plan of care. Time Spent With Patient Time: Total time managing care of this patient today ____ minutes.
--- NOTE | 2024-06-17 13:23 | MHC.CM.PN ---
IMM 06/17/24, PT MEDICALLY CLEARED FOR DC HOME W/NEW [facility] FOR SN/PT, PT'S SON FOR TRANSPORT
== END 2024-06-17 15:14 | disposition home health service (06) | DRG 544 ==
LOC: HO.ED 22:28 → HO.EDOVER 22:49 → HO.IMC 23:41
PROVIDERS: Physician Assistant; Admitting Provider Student in an Organized Health Care Education/Training Program; Emergency Provider Internal Medicine; PCP Internal Medicine; Visit Provider Internal Medicine
DX: M48.56XA Collapsed vertebra, not elsewhere classified, lumbar region, initial encounter for fracture (principal); I48.0 Paroxysmal 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; M81.0 Age-related osteoporosis without current pathological fracture; K86.9 Disease of pancreas, unspecified; J98.4 Other disorders of lung; K76.0 Fatty (change of) liver, not elsewhere classified; Z66 Do not resuscitate; I10 Essential (primary) hypertension; Z79.01 Long term (current) use of anticoagulants; Z87.891 Personal history of nicotine dependence; Z79.899 Other long term (current) drug therapy
CPT/HCPCS: 36415; 71275; 74174; 74183; 80048; 80053; 81001; 83690; 83880; 84443; 84484; 85025; 85027; 85610; 93005; 97162; 99285; A9585; J1160; Q9967

== ENCOUNTER → 2024-06-12 18:00 | Outpatient (BNV) | payer MEDICARE, SELFPAY | PROVIDERS: Admitting Provider Student in an Organized Health Care Education/Training Program; Emergency Provider Internal Medicine; PCP Internal Medicine; Visit Provider Internal Medicine Cardiovascular Disease | DX: R94.31 Abnormal electrocardiogram [ECG] [EKG] (principal) | CPT/HCPCS: 93010 ==

== ENCOUNTER → 2024-06-12 22:42 | Outpatient (BNV) | payer MEDICARE, SELFPAY | PROVIDERS: Admitting Provider Student in an Organized Health Care Education/Training Program; Emergency Provider Internal Medicine; PCP Internal Medicine; Visit Provider Internal Medicine Gastroenterology | DX: K86.9 Disease of pancreas, unspecified (principal) | CPT/HCPCS: 99223 ==

== ENCOUNTER → 2024-06-12 22:42 | Outpatient (BNV) | payer MEDICARE, SELFPAY | PROVIDERS: Admitting Provider Student in an Organized Health Care Education/Training Program; Emergency Provider Internal Medicine; PCP Internal Medicine; Visit Provider Student in an Organized Health Care Education/Training Program | DX: I48.0 Paroxysmal 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 (principal); R94.31 Abnormal electrocardiogram [ECG] [EKG] | CPT/HCPCS: 99223; 99232; 99233; 99239; G0180 ==

== ENCOUNTER → 2024-06-12 22:42 | Outpatient (BNV) | payer MEDICARE, SELFPAY | PROVIDERS: Admitting Provider Student in an Organized Health Care Education/Training Program; Emergency Provider Internal Medicine; PCP Internal Medicine; Visit Provider Internal Medicine Cardiovascular Disease | DX: I48.91 Unspecified 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 (principal) | CPT/HCPCS: 99222; 99233 ==

== ENCOUNTER 2025-06-29 13:01 | Outpatient (AMB) | payer MEDICARE, SELFPAY ==
--- NOTE | 2025-06-29 13:03 | A.OFFPC_ITS ---
Vital Signs 06/29/25 13:05 Height 5 ft 4.96 in Weight 152 lb BMI 25.3 BP 107/55 L Blood Pressure Location Lt brachial Position Sitting Respiration 16 Pulse 68 Pulse Source Pulse Oximeter Temp 97.6 F Temp Source Temporal Artery Scan Pulse Oximetry (%) 94 Oxygen Delivery Method Room Air Intake Visit Reasons: Establish Care/Dr. Lee Cardiothoracic Surgeon Required: No Accompanied by: Self / Same As Patient Allergies morphine (MORPHINE) Allergy (Severe, Verified 06/29/25 13:55) VOMITING amiodarone Allergy (Verified 06/29/25 13:55) Nausea and Vomiting metoprolol Allergy (Verified 06/29/25 13:55) Nausea and Vomiting Medication List - Last Reconciled 06/29/25 by Breana Hicks PA-C alendronate 70 mg PO ESCOBAR@0900 amlodipine 10 mg PO DAILY apixaban 2.5 mg PO BID 90 days multivitamin 1 tab PO DAILY Tobacco use date assessed: 06/29/25 Fall risk assessment: No Falls in past year Last assessed Fall Risk: 06/29/25 Dental Screening Dental Screen Date: 06/29/25 Did you have a dental visit in the last 12 months?: Yes Did you have a dental problem in the last 6 months where you did not have access to dental care?: No Was dental information given to patient?: Patient has dentist HPI HPI Comments History of Present Illness Details The patient is an 89 year old female presenting for follow-up and medication management after her previous primary care provider retired. She has a history of 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 with rapid ventricular response (RVR). A bench precision assembler recommended a year ago that she stop Norvasc (amlodipine) and start atenolol 50 mg twice daily, but this change was not implemented, and the patient's son states she had a terrible reaction to atenolol in the past. She is currently taking amlodipine and Eliquis 2.5 mg twice daily, which is half the dose recommended by her bench precision assembler. Past imaging from a year ago revealed an enlarged fatty liver with indeterminate hypodensities, a liver lesion, something in the pancreas, a thyroid nodule, severe cystic changes in the lungs with multiple septated masses concerning for infection versus malignancy, severe diverticulosis, an L1 fracture, and sclerotic densities in T10 and iliac bones suspicious for malignancy. The patient was unaware of these findings. She states she does not want any treatment or surgery if she does have cancer, and does not wish to pursue further workup or see specialists, citing her age. Lab work from May of last year showed a normal CBC without anemia, normal platelet count, and normal kidney function, electrolytes, and thyroid levels. Her random glucose was slightly elevated. The patient declines any blood work at this visit. Social History - Functional Status: The patient reports she is independent and does not need help at home. - Housing: She lives in a single-floor r anch house. - Family Support: Her son checks on her and assists with tasks like those needing access to the cellar. 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 PAF (paroxysmal 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) Endometrial cyst of ovary Surgical History History of total right hip arthroplasty H/O dilation and curettage S/P right oophorectomy Family History Father Rectal cancer Stroke Mother CVD (cardiovascular disease) Heart failure Social History Household Members: None Housing: House Do you presently have visiting nurse or other home services: No Alcohol intake: current Alcohol intake frequency: does not drink Patient Tobacco Use Status: Former Tobacco user service: No Current occupational status: retired Cognitive needs: Yes (walker) Hearing needs: No Vision needs: Yes (reading glasses) Questionnaire PHQ-9 Over the last 2 weeks, how often have you been bothered by any of the following problems? 1. Little interest or pleasure in doing things: not at all 2. Feeling down, depressed, or hopeless: not at all 3. Trouble falling or staying asleep, or sleeping too much: not at all 4. Feeling tired or having little energy: not at all 5. Poor appetite or overeating: not at all 6. Feeling bad about yourself - or that you are a failure or have let yourself or your family down: not at all 7. Trouble concentrating on things, such as reading the newspaper or watching television: not at all 8. Moving or speaking so slowly that other people could have noticed. Or the opposite - being so fidgety or restless that you have been moving around a lot more than usual: not at all 9. Thoughts that you would be better off or of hurting yourself in some way: not at all Total score: 0 Depression Screening Interpretation: Negative Depression Screening Done: Yes 34033 - PHQ-9 Billing: Yes Source: Developed by Drs. Alex Gomez, Nedra Gomez, Raúl Minor and colleagues, with an educational ivan from [employer]. Thrive Questionnaire Date Thrive assessed: 06/29/25 I am a: Patient What is your living situation today?: I have a steady place to live Within the past 12 months, did the food you bought not last and you didn't have the money to get more?: Never true Within the past 12 months, did you worry whether your food would run out before you got money to buy more?: Never true Do you have trouble paying for medicines?: No Do you have trouble getting transportation to medical appointments?: No Do you have trouble paying your heating and electricity bill?: No Do you have trouble taking care of your child, family member or friend?: No Do you have trouble with day-to-day activities such as bathing, preparing meals, shopping, managing finances, etc.?: No Are you currently unemployed and looking for a job?: No Are you interested in more education?: No Please select the resources that you would like help with: None THRIVE Score: 0 AUDIT C Alcohol Use Questionnaire (AUDIT-C) 1. How often do you have a drink containing alcohol?: Never 3. How often do you have six or more drinks on one occasion?: Never Total Score: 0 Score Reviewed/Action Taken: No OPHELIA-7 AMB Questionnaire OPHELIA-7 Date OPHELIA - 7 assessed: 06/29/25 Feeling nervous, anxious, or on edge: 0 = Not at all Not being able to stop or control worryin = Not at all Worrying too much about different things: 0 = Not at all Trouble relaxin = Not at all Being so restless that it is hard to sit still: 0 = Not at all Becoming easily annoyed or irritable: 0 = Not at all Feeling afraid as if something awful might happen: 0 = Not at all Total OPHELIA-7 score (0-4 normal; 5-9 mild; 10-14 moderate; 15-21 severe): 0 Source: Developed by Drs. Alex Gomez, Nedra Gomez, Raúl Minor and colleagues, with an educational ivan from [employer]. OPHELIA-7 Assessment Billing OPHELIA-7 Assessment Tool: OPHELIA-7 Assessment 82876 Review of Systems Const Details: - Constitutional: Denies unintentional weight loss. - Cardiovascular: Reports feeling nervous during the visit, which elevates her heart rate. Denies other cardiovascular symptoms. - Gastrointestinal: Denies black or bloody stools and abdominal pain. - Musculoskeletal: Denies recent falls. - Allergic/Immunologic: Reports no known allergies. All systems reviewed & are unremarkable except as noted in HPI and below Physical exam (Primary Care) Vital Signs: Last Vital Signs Temp 97.6 F 06/29/25 13:05 Pulse 68 06/29/25 13:05 Resp 16 06/29/25 13:05 BP 107/55 L 06/29/25 13:05 Pulse Ox 94 06/29/25 13:05 Oxygen Delivery Method Room Air 06/29/25 13:05 Care Plan Goal for BP management: <140/90 at Goal BMI result Body Mass Index 25.3 BMI Assessment/Plan discussion: High BMI High, discussed plan: lifestyle, weight reduction, dietary, physical activity, alcohol moderation and other Tobacco/Smoking Status: Tobacco use Status Tobacco use date assessed 06/29/25 06/29/25 13:14 Patient Tobacco Use Status Former Tobacco user 06/29/25 13:14 PHQ-9: PHQ-9 Score PHQ-9: Total score 0 06/29/25 13:15 Depression Screening Interpretation: Negative Thrive Assessment: Date of Thrive Assessment Date Thrive assessed 06/29/25 06/29/25 13:14 Const Other: Appearance: Alert. Oriented X3. No acute distress. Head: Normal external exam. Normocephalic. Atraumatic. Eyes: Pupils are equal, round, and reactive to light. Extraocular movements intact. Conjunctiva and sclera normal. Eyelids normal. Throat: Pharynx normal. Uvula midline. Moist mucous membranes. Neck: Normal inspection. Neck supple. Full range of motion. Cardiovascular: Heart rate was high, going from 130s. Normal heart rhythm. Heart sound normal. No murmurs noted. Pulses normal throughout. Respiratory: No respiratory distress. Painless inspiration. Breath sounds normal. No wheezes/rales/rhonchi noted. No accessory muscle usage noted or decreased air movement noted. Abdomen: Soft and nontender. No distention noted. No organomegaly noted. No visible injury noted. Back: Full range of motion noted. Skin: Skin warm and dry. Normal skin color. Normal skin turgor. No rashes/lesions/lacerations noted. Extremities: Extremities exhibit normal range of motion. Neuro: Oriented X 3. No motor deficit. No sensory deficit. Reflexes normal. Office Procedures EKG Details: Normal sinus rhythm no acute ischemic changes. Reviewed by myself and Dr. Rajan by ROOOMERS. 40422-Incyjzaxjlzhtkppj, Complete Results Reviewed Results Reviewed: - EKG: Showed tachycardia but not 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. - Labs (May, previous year): CBC was normal with no anemia, normal platelet count, normal kidney function, normal electrolytes (potassium, sodium), and normal thyroid function. Random glucose was slightly elevated. - Imaging (one year ago): CT scan of the lungs showed severe cystic changes with multiple septated masses. Imaging also revealed an enlarged fatty liver with indeterminate hypodensities, a liver lesion, a pancreatic finding, a thyroid nodule, severe diverticulosis, an L1 fracture, and suspicious sclerotic densities in T10 and both iliac bones. Coding Level of Care Code Est Pt Level 4 (02632) Complex visit Add On G2211 Diagnoses Atrial fibrillation I48.91 Malignancy C80.1 Healthcare maintenance Z00.00 CPT Codes EKG - CPT: 65390-Aordctqtlvbuiiojr, Complete ([id number]) Additional Codes PHQ-9 - 24543 - PHQ-9 Billing: Yes ([id number]) OPHELIA-7 Assessment Billing - OPHELIA-7 Assessment Tool: OPHELIA-7 Assessment 74664 ([id number]) Time Spent (min) 60 Assessment & Plan Assessment & Plan (1) Atrial fibrillation: Code(s): I48.91 - Unspecified 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 Category: Medical Plan: The patient has a history of 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 with RVR. A bench precision assembler's note from one year ago recommended stopping amlodipine and starting atenolol 50 mg twice daily for heart rate and blood pressure control, and increasing Eliquis to 5 mg twice daily. Initially, a plan was made to implement these changes. However, after discussion with the patient's son, it was revealed that she had a prior adverse reaction to atenolol. Therefore, the patient will continue her current regimen of amlodipine 10 mg daily and Eliquis 2.5 mg twice a day. (2) Malignancy: Comment: Patient refusing all treatment was informed during a hospital visit on 05/2024 declined treatment at that time Code(s): C80.1 - Malignant (primary) neoplasm, unspecified Category: Medical Plan: Incidental findings on imaging from a year ago are suspicious for malignancy, including lung masses and sclerotic bone densities. The patient was informed of these findings and has clearly expressed her wish to decline any further workup, specialist referrals, or treatment, even if cancer is present, given she is about to turn 89 years old. Her decision is respected, and the focus will remain on comfort and quality of life. (3) Healthcare maintenance: Code(s): Z00.00 - Encounter for general adult medical examination without abnormal findings Category: Medical Plan: The patient declined any blood work for this visit. She initially declined a cardiology referral but will be managed medically for now. She will follow up in six months. Plan Plan Patient was informed and verbally consented to the use of an ambient scribe for clinic note documentation during this visit. 1. Atrial Fibrillation With Rapid Ventricular Response The patient has a history of 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 with RVR. A bench precision assembler's note from one year ago recommended stopping amlodipine and starting atenolol 50 mg twice daily for heart rate and blood pressure control, and increasing Eliquis to 5 mg twice daily. Initially, a plan was made to implement these changes. However, after discussion with the patient's son, it was revealed that she had a prior adverse reaction to atenolol. Therefore, the patient will continue her current regimen of amlodipine 10 mg daily and Eliquis 2.5 mg twice a day. 2. Possible Malignancy Incidental findings on imaging from a year ago are suspicious for malignancy, including lung masses and sclerotic bone densities. The patient was informed of these findings and has clearly expressed her wish to decline any further workup, specialist referrals, or treatment, even if cancer is present, given she is about to turn 89 years old. Her decision is respected, and the focus will remain on comfort and quality of life. 3. Health Maintenance The patient declined any blood work for this visit. She initially declined a cardiology referral but will be managed medically for now. She will follow up in six months. I reviewed the patient's record and noted a discrepancy between the bench precision assembler's recommendations from a year ago and her current medications for 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. I initially planned to adjust her medications to match the recommendations, which included increasing Eliquis to 5 mg twice daily and switching amlodipine to atenolol 50 mg twice daily. After I discussed these changes with her son, he informed me she had a previous adverse reaction to atenolol. Given this new information and her son's concern, I reversed the medication changes and will continue her on the current regimen of amlodipine 10 mg daily and Eliquis 2.5 mg twice a day, as she is feeling well on them. I also discussed incidental findings from imaging a year ago, which were con cerning for possible malignancy. The patient, who is turning 89 next month, firmly stated that she does not want any further workup, specialist referrals, or treatment, even if diagnosed with cancer. I acknowledged and respected her wishes, agreeing that the focus should be on quality of life. The patient also declined routine blood work. We agreed she will follow up in six months. Medications: New apixaban 2.5 mg PO BID 180 tabs 3RF 90 days apixaban 5 mg PO BID 90 days 180 tabs 3RF amlodipine 10 mg PO DAILY 90 tabs 3RF Patient Instructions: - Continue taking all your medications as you have been. - Specifically, you will stay on amlodipine 10 mg once a day and Eliquis 2.5 mg twice a day. - Do not take the atenolol that was discussed. - You have declined any further testing or specialist visits at this time, which is okay. - Please return for a follow-up visit in six months.
[2025-06-29 13:05] VITALS: BP 107/55; PULSE 68; RESP 16; TEMP 36.4; O2SAT 94; BMI 25.3
== END 2025-06-29 13:53 | disposition home or self-care (01) ==
LOC: HO.HMCSH 13:01
PROVIDERS: PCP Physician Assistant Medical; Visit Provider Physician Assistant Medical
DX: I48.91 Unspecified 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 (principal); C80.1 Malignant (primary) neoplasm, unspecified; Z00.00 Encounter for general adult medical examination without abnormal findings

== ENCOUNTER → 2025-06-29 13:01 | Outpatient (BNVA) | payer MEDICARE, SELFPAY | PROVIDERS: PCP Physician Assistant Medical; Visit Provider Physician Assistant Medical | DX: Z76.89 Persons encountering health services in other specified circumstances (principal); I48.91 Unspecified 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; C80.1 Malignant (primary) neoplasm, unspecified; Z13.31 Encounter for screening for depression; Z13.39 Encounter for screening examination for other mental health and behavioral disorders | CPT/HCPCS: 93005; 96127; 99212 ==

== ENCOUNTER 2025-07-20 08:39 | Outpatient (AMB) | payer MEDICARE, SELFPAY ==
--- OUTSIDE RECORDS SUMMARY | 2025-07-20 08:42 | XMS_ITS | Patient Health Record ---
[facility] Address [address] [place] [address] Care Team Providers Care Digital Media Director Name Role Phone Oskar Lee MD Primary Care Provider Ed Katz Unavailable [phone] Allergies Allergen (clinical drug ingredient) Drug/Non Drug Allergy documented on EMR Reaction Allergy Type Onset Date Status morphine Morphine nausea and vomiting Drug Allergy Active Reason For Referral No Information Medications Medication SIG (Take, Route, Frequency, Duration) Notes Start Date End Date Status amLODIPine Besylate 5 MG Oral; Duration: 90 Active Eliquis 2.5 MG as directed Orally Twice Daily Active Metoprolol Tartrate 100 MG Oral; Duration: 90 Active Simvastatin 10 MG Oral; Duration: 90 Active Fosamax once a week Active Losartan Potassium 100 MG Oral; Duration: 90 Active Immunizations Vaccine Route Administration Date Status Comme nts Influenza Unknown 04/02/2022 Administered COVID-19 Moderna Vaccine Unknown 04/29/2021 Administered 1st 08/28/2020 2nd 09/25/2020 Social History Tobacco Use: Social History Observation Description Date Details (start date - stop date) Former Smoker NA - NA Tobacco Use/Smoking Question Answer Notes Are you a: former smoker Additional Findings: Tobacco Non-User Current no n-smoker Alcohol Screen Question Answer Notes Did you have a drink containing alcohol in the p ast year? No Points 0 Interpretation Negative Tobacco use other than smoking: Question Answer Notes Are you an other tobacco user? No Problems Problem Type SNOMED Code ICD Code Onset Dates Problem Status W/U Status Risk Notes Problem Bilateral atherosclerosis of arteries of lower limbs (disorder) ([id number] ) Unspecified atherosclerosis of [place] arteries of extremities, bilateral legs (I70.203) Active confirmed Problem Acquired hammer toe of right foot ([id number]) Other hammer toe(s) (acquired), right foot (M20.41) Active confirmed Problem Acquired hammer toe of left foot ([id number]) Other hammer toe(s) (acquired), left foot (M20.42) Active confirmed Plan Of Treatment Pending Test Test Name Order Date 78223-[id number] NAIL, 6 OR MORE 10/05/2016 15415-XPNJIBV NAIL, 6 OR MORE 01/03/2017 88656-OSGSKKS NAIL, 6 OR MORE 04/04/2017 30700-RTQHESE NAIL, 6 OR MORE 08/02/2017 75931-IQQIUTJ NAIL, 6 OR MORE 10/31/2017 47159-SHGLDTT NAIL, 6 OR MORE 01/30/2018 62170-SHNJENY NAIL, 6 OR MORE 05/08/2018 58247 I&D ABSCESS- SIMPLE,SINGLE 017 80432-PLWQ SKIN LESIONS, OVER 4 08/27/19 20 91024-HMSA SKIN LESIONS, OVER 4 12/10/19 20 30791-CWHF SKIN LESIONS, OVER 4 03/10/20 20 80658-YWWX SKIN LESIONS, OVER 4 06/16/20 20 27731-AFGF SKIN LESIONS, OVER 4 09/15/19 21 56043-ONRR SKIN LESIONS, OVER 4 12/14/19 21 58122-NJRZ SKIN LESIONS, OVER 4 03/14/20 21 53803-GHEQ SKIN LESIONS, OVER 4 06/20/20 21 78726-HQME SKIN LESIONS, OVER 4 10/27/19 22 29170-PRBJ SKIN LESIONS, OVER 4 08/07/19 19 76273-ZHYA SKIN LESIONS, OVER 4 11/19/19 19 68582-GBFD SKIN LESIONS, OVER 4 02/20/20 19 55999-BVWC SKIN LESIONS, OVER 4 05/21/20 19 99408-NQBL SKIN LESIONS, OVER 4 05/08/20 18 89378-NWLB SKIN LESIONS, OVER 4 01/31/20 18 26526-BRGM SKIN LESIONS, OVER 4 11/01/19 18 78509-IUVM SKIN LESIONS, OVER 4 08/02/19 18 28448-KIKI SKIN LESIONS, OVER 4 04/04/20 17 29014-DSCS SKIN LESIONS, OVER 4 10/06/19 17 51411-HMUA SKIN LESIONS, OVER 4 01/04/20 17 99795-UBYGVEBZ OF HEMATOMA/FLUID 020 Insurance Providers Payer Name Payer Address Payer Phone Subscriber Number Group Number Insured Name Patient Relationship to Insured Coverage Start Date Coverage End Date Medicare National [employer] [address] [place] [address] [id number] Mary owusu Kera Self - patient is the insured [employer] [address] [place] [address] [id number] Kera Diamond Self - patient is the insured Medical (General) History Medical History History ICD Code Arthritis Back,Hip,and Knee pain Chicken pox Measles Mumps Osteoporosis Surgical History Surgery Date(Month/Year) DCSS 06/2005 right hip replacement 10/10/2016 mohs surgery 09/22/2020
[2025-07-20 08:45] VITALS: BP 111/58; PULSE 80; RESP 16; TEMP 36.7; O2SAT 98; BMI 24.0
--- NOTE | 2025-07-20 08:45 | MHC.PC.OV ---
Vital Signs 07/20/25 08:45 Height 5 ft 4.96 in Weight 144 lb BMI 24.0 BP 111/58 L Blood Pressure Location Lt brachial Position Sitting Respiration 16 Pulse 80 Pulse Source Pulse Oximeter Temp 98.0 F Temp Source Temporal Artery Scan Pulse Oximetry (%) 98 Oxygen Delivery Method Room Air Intake Visit Reasons: Rash Financial Health Counselor Required: No Accompanied by: Son Allergies morphine (MORPHINE) Allergy (Severe, Verified 07/20/25 08:46) VOMITING amiodarone Allergy (Verified 07/20/25 08:46) Nausea and Vomiting metoprolol Allergy (Verified 07/20/25 08:46) Nausea and Vomiting Medication List - Last Reconciled 07/20/25 by Tavo Rajan MD alendronate 70 mg PO ESCOBAR@0900 amlodipine 10 mg PO DAILY apixaban 2.5 mg PO BID 90 days hydrocortisone 2.5% 1 appl topical BID PRN multivitamin 1 tab PO DAILY Tobacco use date assessed: 06/29/25 Dental Screening Dental Screen Date: 06/29/25 HPI HPI Comments History of Present Illness Details History of Present Illness - The patient is an 89 year old female presenting for evaluation of an itchy rash. - She reports the rash has been present for approximately six months on her bilateral forearms, elbows, and chest. - The condition has been more severe in the past. - Due to concern about bed bugs, an clinical nursing assistant was called, but no bugs were found, though the area was treated as a precaution. - She notes the presence of unrelated age-related brown spots. Social History - The patient is 89 years old and will be 89 soon. - She was accompanied to the visit by her son. 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 PAF (paroxysmal 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) Endometrial cyst of ovary Surgical History History of total right hip arthroplasty H/O dilation and curettage S/P right oophorectomy Family History Father Rectal cancer Stroke Mother CVD (cardiovascular disease) Heart failure Social History Household Members: None Housing: House Do you presently have visiting nurse or other home services: No Alcohol intake: current Alcohol intake frequency: does not drink Patient Tobacco Use Status: Former Tobacco user service: No Current occupational status: retired Cognitive needs: Yes (walker) Hearing needs: No Vision needs: Yes (reading glasses) Questionnaire PHQ-9 Over the last 2 weeks, how often have you been bothered by any of the following problems? 1. Little interest or pleasure in doing things: not at all 2. Feeling down, depressed, or hopeless: not at all 3. Trouble falling or staying asleep, or sleeping too much: not at all 4. Feeling tired or having little energy: not at all 5. Poor appetite or overeating: not at all 6. Feeling bad about yourself - or that you are a failure or have let yourself or your family down: not at all 7. Trouble concentrating on things, such as reading the newspaper or watching television: not at all 8. Moving or speaking so slowly that other people could have noticed. Or the opposite - being so fidgety or restless that you have been moving around a lot more than usual: not at all 9. Thoughts that you would be better off or of hurting yourself in some way: not at all Total score: 0 Depression Screening Interpretation: Negative Depression Screening Done: Yes 81997 - PHQ-9 Billing: Yes Source: Developed by Drs. Alex Gomze, Nedra Gomez, Raúl Minor and colleagues, with an educational ivan from [employer]. Thrive Questionnaire Date Thrive assessed: 06/29/25 I am a: Patient What is your living situation today?: I have a steady place to live Within the past 12 months, did the food you bought not last and you didn't have the money to get more?: Never true Within the past 12 months, did you worry whether your food would run out before you got money to buy more?: Never true Do you have trouble paying for medicines?: No Do you have trouble getting transportation to medical appointments?: No Do you have trouble paying your heating and electricity bill?: No Do you have trouble taking care of your child, family member or friend?: No Do you have trouble with day-to-day activities such as bathing, preparing meals, shopping, managing finances, etc.?: No Are you currently unemployed and looking for a job?: No Are you interested in more education?: No Please select the resources that you would like help with: None THRIVE Score: 0 AUDIT C Alcohol Use Questionnaire (AUDIT-C) 1. How often do you have a drink containing alcohol?: Never 3. How often do you have six or more drinks on one occasion?: Never Total Score: 0 Score Reviewed/Action Taken: No OPHELIA-7 AMB Questionnaire OPHELIA-7 Date OPHELIA - 7 assessed: 06/29/25 Feeling nervous, anxious, or on edge: 0 = Not at all Not being able to stop or control worryin = Not at all Worrying too much about different things: 0 = Not at all Trouble relaxin = Not at all Being so restless that it is hard to sit still: 0 = Not at all Becoming easily annoyed or irritable: 0 = Not at all Feeling afraid as if something awful might happen: 0 = Not at all Total OPHELIA-7 score (0-4 normal; 5-9 mild; 10-14 moderate; 15-21 severe): 0 Source: Developed by Drs. Alex Gomez, Nedra Gomez, Raúl Minor and colleagues, with an educational ivan from [employer]. OPHELIA-7 Assessment Billing OPHELIA-7 Assessment Tool: OPHELIA-7 Assessment 66053 Review of Systems Narrative Review of Systems - Integumentary: Reports an itchy rash on bilateral forearms, elbows, and chest for approximately 6 months. - Denies rash on her legs. Physical exam (Primary Care) Vital Signs: Last Vital Signs Temp 98.0 F 07/20/25 08:45 Pulse 80 07/20/25 08:45 Resp 16 07/20/25 08:45 BP 111/58 L 07/20/25 08:45 Pulse Ox 98 07/20/25 08:45 Oxygen Delivery Method Room Air 07/20/25 08:45 BMI result Body Mass Index 24.0 Tobacco/Smoking Status: Tobacco use Status Tobacco use date assessed 06/29/25 07/20/25 08:46 Patient Tobacco Use Status Former Tobacco user 07/20/25 08:46 PHQ-9: PHQ-9 Score PHQ-9: Total score 0 07/20/25 08:54 Depression Screening Interpretation: Negative Thrive Assessment: Date of Thrive Assessment Date Thrive assessed 06/29/25 07/20/25 08:46 Narrative Physical Exam General: Appearance normal, both eyes and all related structures Nutritional Appearance: Well nourished Orientation/consciousness: Patient oriented x3 Limitations: No limitations Head: Normal to inspection Neck: Normal visual inspection Chest: Redness observed on the chest Respiratory: Normal respiratory effort Neurology: Patient oriented x3 Coding Level of Care Code Est Pt Level 4 (10377) Add On Problem Visit Only Diagnoses 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 Atrial fibrillation I48.91 Malignancy C80.1 Additional Codes OPHELIA-7 Assessment Billing - OPHELIA-7 Assessment Tool: OPHELIA-7 Assessment 87543 ([id number]) PHQ-9 - 59689 - PHQ-9 Billing: Yes ([id number]) Assessment & Plan Assessment & Plan (1) Acute ischemic heart disease: Code(s): I24.9 - Acute ischemic heart disease, unspecified Category: Medical (2) Atrial fibrillation: Code(s): I48.91 - Unspecified 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 Category: Medical (3) Malignancy: Comment: Patient refusing all treatment was informed during a hospital visit on 05/2024 declined treatment at that time Code(s): C80.1 - Malignant (primary) neoplasm, unspecified Category: Medical Plan Plan - The patient's rash is assessed as a form of allergic reaction or a reaction to heat or cold. - A soothing cream will be prescribed to alleviate symptoms. - The patient was instructed to apply the cream followed by corn starch powder to keep the area dry. - Reassurance was provided that the condition is not worrisome. Discussion Notes I explained to the patient that her rash is likely a form of allergic reaction or a temporary reaction to heat or cold and is not a cause for concern. I advised her to apply a prescribed soothing cream to the affected areas, followed by corn starch powder to keep the skin dry, which should resolve the issue. Patient Instructions - The rash you have is likely a simple allergic reaction and is nothing to worry about. - I am prescribing a cream to help with the itching and redness. - After you put on the cream, apply some corn starch powder over it to keep the area dry. - Your skin should get better with this treatment. Orders: [facility]errals [facility] Referral C80.1 - Malignant (primary) neoplasm, unspecified, I24.9 - Acute ischemic heart disease, unspecified, I48.91 - Unspecified 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 Medications: New hydrocortisone 2.5% 1 appl topical BID PRN 20 grams 0RF skin irritation
== END 2025-07-20 09:23 | disposition home or self-care (01) ==
LOC: HO.HMCSH 08:39
PROVIDERS: PCP Physician Assistant Medical; Visit Provider Internal Medicine
DX: I24.9 Acute ischemic heart disease, unspecified (principal); I48.91 Unspecified 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; C80.1 Malignant (primary) neoplasm, unspecified